=== PATIENT | male | born 1955 | race Caucasian/White ===

== ENCOUNTER 2021-06-13 17:08 | Inpatient (IN) ==
--- NOTE | 2021-06-13 17:35 | XRay Report ---
XR chest 1V portable CLINICAL HISTORY: elevated heart rate, fever. Evaluate cardiopulmonary status. COMPARISON STUDY: No previous studies for comparison. TECHNIQUE: 1 view of the chest FINDINGS: Single frontal view of the chest demonstrates the cardiomediastinal silhouette to be within normal li mits. The lungs are clear of alveolar opacities. There is no evidence for pleural effusion. There is no evidence for vascular congestion. There is no acute osseous pathology. IMPRESSION: 1. No acute cardiopulmonary disease. ACT 112: Negative or not required by law. Electronically signed by: Ernst Leonard M.D. 06/13/2021 5:34 PM
[2021-06-13] MEDS ORDERED: AMPICILLIN/SULBACTAM SOD 3,000 MG in 0.9 % SODIUM CHLORIDE 100 ML IV STA (17:53)
[2021-06-13] MEDS ORDERED: LABETALOL HCL IV 5 MG/ML 20ML IV STA (17:54)
[2021-06-13] MEDS ORDERED: DIPHTHERIA/TETANUS/PERTUSSIS 0.5 ML SYR/VIAL IM ONE (17:57)
--- NOTE | 2021-06-13 17:57 | Emergency Department Note ---
Impression & Plan Elevated troponin ADMIT ED Provider Note HPI: The patient is a 66-year-old gentleman who presents the emergency department with a chief complaint of a cat bite to the base of his left thumb. Patient states that he is a 5-month-old cat that was a stray that he took and about 2 months ago. He states that he was attempting to give the cat a nasal spray for a "cold" when the cat bit the base of his left thumb. Patient states he developed some pain and swelling in the area throughout the afternoon and therefore drove himself to the emergency department for evaluation. Patient states he did immediately wash the wound with soap and water following the bite. On arrival to the ED the patient is in no acute distress but he is noted to be tachycardic and hypertensive at 214 systolic. He denies any current chest pain. States he has had some chest discomfort over the past month or 2 when he exerts himself, mentions particularly when shoveling snow. ROS: -Skin: Cat bite to the left upper extremity/hand -Cardio: Chest discomfort with exertion *10 point review systems was conducted and is otherwise negative unless stated above *Outpatient medications and allergy history reviewed PE: General: Alert, NAD HEENT: Normocephalic, atraumatic Eyes: Extraocular eye movement is intact, no scleral erythema Pulmonary: Clear to auscultation bilaterally, no wheezing Cardio: Tachycardic rate and regular rhythm GI: Abdomen is soft, nontender : No suprapubic tenderness MSK: No evidence of trauma or malformation of the extremities, no edema Skin: Small puncture wound to the base of the first digit of the left hand consistent with known cat bite, no evidence of foreign body, no purulent drainage, mild amount of surrounding erythema to the area with a mild amount of swelling, range of motion is intact in all 5 digits of the left hand Neuro: Alert, no focal deficits Psychiatric: Cooperative nurse monitoring: - An order was placed for continuous cardiac monitoring - Patient was noted to be in sinus rhythm with rate of 120 EKG: Rate: 114 Rhythm: Sinus tachycardia Intervals: Within normal limits ST changes: No ST elevation Time: 1737 Medical Decision Making: Patient presented to the emergency department today with multiple issues, his main presenting complaint was that he was bitten by his 5-month-old cat earlier this morning. He states he developed some increasing swelling and redness around the site of the cat bite in the left hand at the base of the thumb, overall this appears mildly infected, he has some surrounding erythema, no purulent drainage, no evidence of abscess, there is no extension of the arm. Blood cultures were drawn in the ED and the patient was given a dose of IV Unasyn. Unfortunately, on presentation the patient is very hypertensive at 214 systolic, he is saturating well on room air but he is noted to be tachycardic in the 120s, he denies any active chest pain but states that he has had some chest discomfort recently when exerting himself, mention specifically when shoveling snow he becomes very short of breath and does have some chest discomfort. He was given a dose of IV labetalol and his blood pressure did downtrend into the 170 systolic, heart rate eventually improved within normal limits. Given his initial presenting vital signs, lab work-up was initiated, troponin is noted to be elevated at 0.09, this is in the setting of normal renal function, I do not see any acute ischemic changes on the patient's EKG. Patient was given aspirin, CT angiography of the chest was performed that shows no evidence of pulmonary embolism. Patient states he is not currently on any medications other than an albuterol inhaler, I feel that he would benefit from admission and trending of troponin given his concerning presentation in addition to symptoms of typical chest pain recently. Case was discussed with the on-call hospital for [facility], patient was admitted to a telemetry bed for further care. Critical care time: 33 minutes -Stabilization of hypertensive emergency with elevated troponin requiring IV antihypertensive medications for blood pressures greater than 200 systolic, interpretation of diagnostic studies, time spent at the bedside, discussion with other healthcare providers and arrangement of admission Diagnosis: 1. Elevated troponin 2. Exertional chest discomfort 3. Cat bite with surrounding cellulitis, left hand 4. Hypertensive emergency 5. Tachycardia Disposition: Admission Gopal Paul DO Emergency Medicine Past Med/Surg History Medical History (Updated 06/13/21 @ 21:06 by Mónica Daly PA-C) Alcohol use Asthma Dyslipidemia GERD (gastroesophageal reflux disease) HTN (hypertension) Pre-diabetes Surgical History History of tonsillectomy Family History Other Cancer Heart disease Stroke Social History Smoking Status: Current some day smoker Tobacco Type: Cigars Hx Alcohol Use: Yes Alcohol type: hard liquor Alcohol type Comment: 1.5 oz whisky every night Hx Substance Use: No Feels Safe at Home: Yes Allergies Allergies Allergy/AdvReac Type Severity Reaction Status Date / Time Penicillins Allergy Unknown strong Unverified 09/26/15 14:30 family hx of allergy citalopram AdvReac Tachycardia Unverified 06/13/21 20:15 Home Meds Home Medications Medication Instructions Recorded Confirmed albuterol sulfate 90 mcg/actuation 2 puff INHALATION QID PRN 06/13/21 06/13/21 aerosol inhaler (Ventolin HFA) furosemide 20 mg tablet 20 mg PO DAILY PRN 06/13/21 06/13/21 Results & Data (ED) Vital Signs Vital Signs - 24 hr 06/13/21 17:12 06/13/21 17:56 06/13/21 18:41 Temperature 37.4 C Temperature Source Oral Pulse Rate 120 H Pulse Rate [Finger] 118 H 99 H Pulse Rhythm [Finger] Regular Regular Pulse Strength [Finger] Normal Normal Respiratory Rate 20 22 22 Respiratory Effort / Characteristics Non-Labored Spontaneous Non-Labored Non-Labored Respiratory Depth Normal Normal Normal Respiratory Pattern Regular Regular Blood Pressure 197/93 H Blood Pressure [Right Arm] 214/93 H 179/88 H Blood Pressure Mean 127 Blood Pressure Mean [Right Arm] 133 118 Blood Pressure Position [Right Arm] Sitting Sitting Pulse Oximetry 96 95 Oxygen Delivery Method Room Air Room Air Room Air Sepsis Recent Fever Within 48 Hours Yes Sepsis New/Unexplained Change in Mental Status No Sepsis Action Taken by Nursing No Action Required 06/13/21 20:00 Temperature Temperature Source Pulse Rate Pulse Rate [Finger] 98 H Pulse Rhythm [Finger] Pulse Strength [Finger] Respiratory Rate 18 Respiratory Effort / Characteristics Non-Labored Spontaneous Respiratory Depth Normal Respiratory Pattern Blood Pressure Blood Pressure [Right Arm] 153/76 H Blood Pressure Mean Blood Pressure Mean [Right Arm] 101 Blood Pressure Position [Right Arm] Pulse Oximetry 96 Oxygen Delivery Method Room Air Sepsis Recent Fever Within 48 Hours Sepsis New/Unexplained Change in Mental Status Sepsis Action Taken by Nursing Laboratory Data Result diagrams: 06/13/21 17:52 06/13/21 17:52 Lab Results 06/13/21 06/13/21 06/13/21 Range/Units 17:52 17:52 17:52 WBC 11.53 H (4.8-10.8) K/uL RBC 4.59 L (4.7-6.1) M/uL Hgb 14.4 (14.0-18.0) g/dL Hct 42.0 (42-52) % MCV 91.5 (80-100) fL MCH 31.4 (25-34) pg MCHC 34.3 (32-36) g/dL RDW Std Deviation 43.3 (36.4-46.3) fL RDW Coeff of Jennie 12.9 (11.5-14.5) % Plt Count 205 (130-400) K/uL MPV 9.6 (7.4-10.4) fL Immature Gran % (Auto) 0.2 % Neut % (Auto) 78.4 % Lymph % (Auto) 15.0 % Lamb % (Auto) 5.6 % Eos % (Auto) 0.5 % Baso % (Auto) 0.3 % Neut # (Auto) 9.03 H (1.4-6.5) K/uL Lymph # (Auto) 1.73 (1.2-3.4) K/uL Lamb # (Auto) 0.65 H (0.11-0.59) K/uL Eos # (Auto) 0.06 (0-0.5) K/uL Baso # (Auto) 0.04 (0-0.2) K/uL Immature Gran # (Auto) 0.02 (0.00-0.02) K/uL PT 10.3 (9.0-12.0) Seconds INR 1.0 (0.9-1.1) APTT 30.3 (21.0-31.0) Seconds PTT Ratio 1.2 Sodium 136 (136-145) mmol/L Potassium 3.8 (3.5-5.1) mmol/L Chloride 105 (98-107) mmol/L Carbon Dioxide 23 (21-32) mmol/L Anion Gap 8 (3-11) BUN 10 (6-23) mg/dl Creatinine 1.02 (0.6-1.4) mg/dl Est Cr Clr Drug Dosing 88.2 ml/min Est GFR ( Amer) 88.4 ml/min Est GFR (Non-Af Amer) 76.2 ml/min BUN/Creatinine Ratio 9.8 L (10-20) Glucose 117 H (70-99(Fasting)) mg/dl Calcium 9.3 (8.5-10.1) mg/dl Total Bilirubin 0.9 (0.2-1.0) mg/dl AST 23 (13-39) U/L ALT 31 (7-52) U/L Alkaline Phosphatase 30 L (34-104) U/L Troponin I 0.09 H* (0-0.04) ng/ml Total Protein 8.1 (6.0-8.3) gm/dl Albumin 4.3 (3.4-5.0) gm/dl Globulin 3.8 (2.5-4.0) gm/dl Albumin/Globulin Ratio 1.1 (0.9-2) Urine Color Urine Appearance (Clear) Urine pH (4.5-7.5) Ur Specific [place] (1.000-1.030) Urine Protein (Negative) Urine Glucose (UA) (Negative) Urine Ketones (Negative) Urine Blood (Negative) Urine Nitrite (Negative) Urine Bilirubin (Negative) Urine Urobilinogen (Negative) Ur Leukocyte Esterase (Negative) SARS-CoV-2, RNA, NAAT (NEGATIVE) 06/13/21 06/13/21 Range/Units 19:43 19:43 WBC (4.8-10.8) K/uL RBC (4.7-6.1) M/uL Hgb (14.0-18.0) g/dL Hct (42-52) % MCV (80-100) fL MCH (25-34) pg MCHC (32-36) g/dL RDW Std Deviation (36.4-46.3) fL RDW Coeff of Jennie (11.5-14.5) % Plt Count (130-400) K/uL MPV (7.4-10.4) fL Immature Gran % (Auto) % Neut % (Auto) % Lymph % (Auto) % Lamb % (Auto) % Eos % (Auto) % Baso % (Auto) % Neut # (Auto) (1.4-6.5) K/uL Lymph # (Auto) (1.2-3.4) K/uL Lamb # (Auto) (0.11-0.59) K/uL Eos # (Auto) (0-0.5) K/uL Baso # (Auto) (0-0.2) K/uL Immature Gran # (Auto) (0.00-0.02) K/uL PT (9.0-12.0) Seconds INR (0.9-1.1) APTT (21.0-31.0) Seconds PTT Ratio Sodium (136-145) mmol/L Potassium (3.5-5.1) mmol/L Chloride (98-107) mmol/L Carbon Dioxide (21-32) mmol/L Anion Gap (3-11) BUN (6-23) mg/dl Creatinine (0.6-1.4) mg/dl Est Cr Clr Drug Dosing ml/min Est GFR ( Amer) ml/min Est GFR (Non-Af Amer) ml/min BUN/Creatinine Ratio (10-20) Glucose (70-99(Fasting)) mg/dl Calcium (8.5-10.1) mg/dl Total Bilirubin (0.2-1.0) mg/dl AST (13-39) U/L ALT (7-52) U/L Alkaline Phosphatase (34-104) U/L Troponin I (0-0.04) ng/ml Total Protein (6.0-8.3) gm/dl Albumin (3.4-5.0) gm/dl Globulin (2.5-4.0) gm/dl Albumin/Globulin Ratio (0.9-2) Urine Color Yellow Urine Appearance Clear (Clear) Urine pH 7.0 (4.5-7.5) Ur Specific [place] 1.021 (1.000-1.030) Urine Protein Negative (Negative) Urine Glucose (UA) Negative (Negative) Urine Ketones Negative (Negative) Urine Blood Negative (Negative) Urine Nitrite Negative (Negative) Urine Bilirubin Negative (Negative) Urine Urobilinogen Negative (Negative) Ur Leukocyte Esterase Negative (Negative) SARS-CoV-2, RNA, NAAT NEGATIVE (NEGATIVE) Administered Medications Discontinued Medications Aspirin (Aspirin Chew 324 Mg) 324 mg PO NOW STA Stop: 06/13/21 19:18 Last Admin: 06/13/21 19:41 Dose: 324 mg Documented by: [id number] Diphtheria/Pertussis/Tetanus Vacc (Diphtheria/Tetanus/Pertussis 0.5 Ml Syr/Vial) 0.5 ml IM .ONCE ONE Stop: 06/13/21 17:58 Last Admin: 06/13/21 18:19 Dose: Not Given Documented by: [id number] Ampicillin Sodium/Sulbactam Sodium 3,000 mg/ Sodium Chloride 108 mls @ 200 mls/hr IV NOW STA; Protocol Stop: 06/13/21 18:25 Last Infusion: 06/13/21 18:52 Dose: 200 mls/hr Documented by: [id number] Admin: 06/13/21 18:19 Dose: 200 mls/hr Documented by: [id number] Ioversol (Optiray 320 125ml) 120 ml IV ONCE ONE Stop: 06/13/21 19:11 Last Admin: 06/13/21 19:13 Dose: 120 ml Documented by: [id number] Labetalol HCl (Labetalol Hcl Iv 5 Mg/Ml 20ml) 10 mg IV NOW STA Stop: 06/13/21 17:55 Last Admin: 06/13/21 18:14 Dose: 10 mg Documented by: [id number] Cosigned by: [id number] Imaging Data Radiologist's Impression: Chest X-Ray 06/13/21 17:16 XR chest 1V portable CLINICAL HISTORY: elevated heart rate, fever. Evaluate cardiopulmonary status. COMPARISON STUDY: No previous studies for comparison. TECHNIQUE: 1 view of the chest FINDINGS: Single frontal view of the chest demonstrates the cardiomediastinal silhouette to be within normal limits. The lungs are clear of alveolar opacities. There is no evidence for pleural effusion. There is no evidence for vascular congestion. There is no acute osseous pathology. IMPRESSION: 1. No acute cardiopulmonary disease. ACT 112: Negative or not required by law. Electronically signed by: Ernst Leonard M.D. 06/13/2021 5:34 PM Hand X-Ray 06/13/21 17:54 XR hand LT min 3V routine CLINICAL HISTORY: cat bite base of L thumb. COMPARISON STUDY: No previous studies for comparison. TECHNIQUE: 3 left hand views FINDINGS: Bones: There is no evidence for an acute fracture or dislocation. There is no lytic or blastic lesion. Joints: There is mild narrowing of the IP joints and first MTP joint. The bones are in anatomic alignment. Soft tissues: There is no focal soft tissue abnormality. There is no radiopaque foreign body. IMPRESSION: 1. No acute osseous pathology. Osteoarthritis. No radiopaque foreign body. ACT 112: Negative or not required by law. Electronically signed by: Ernst Leonard M.D. 06/13/2021 6:13 PM Chest CTA 06/13/21 18:40 CT angio chest PE protocol CLINICAL HISTORY: Elevated heart rate and fever. Evaluate for pulmonary embolus COMPARISON STUDY: Portable chest from 06/13/2021 CT DOSE: 672.95 mGy.cm TECHNIQUE: CT Angio of the chest was performed.followed by image post processing with coronal, and sagittal MIP reformats. Contrast Volume: Optiray 320, 120 ml FINDINGS: Vasculature: There is homogeneous perfusion of the pulmonary vasculature bilaterally. No intraluminal filling defects or evidence for pulmonary embolus is seen. Airway: The airway is clear. No endobronchial lesion is identified. Lungs: The lungs are clear of acute alveolar opacities, air bronchograms or pulmonary nodules. Pleura: There is no evidence for pleural effusion. There is no evidence for pneumothorax. Mediastinum: There is no evidence for pathologic adenopathy. The heart size is within normal limits. The thoracic aorta is within normal limits. There is no evidence for pericardial effusion. Upper abdomen:The adrenal glands are normal bilaterally. There is a small hiatal hernia. Osseous structures: There is no acute osseous pathology. Impression: 1. No CTA evidence for pulmonary embolus. 2. No acute chest disease. ACT 112: Negative or not required by law. Electronically signed by: Ernst Leonard M.D. 06/13/2021 7:44 PM Discharge Plan Visit Data Chief Complaint: Illness Stated Complaint: RABIES VACCINATION ED Provider: Gopal Paul Discharge Problem: Elevated troponin Patient Disposition: Admitted As Inpatient Discharge Instructions Interventions: ED Discharge Assessment Last Done: 06/13/21 22:42
[2021-06-13 18:07] LABS: Basophils # (auto) 0.04 K/uL (0-0.2); Basophils % (auto) 0.3 %; Eosinophils # (auto) 0.06 K/uL (0-0.5); Eosinophils % (auto) 0.5 %; Hemoglobin 14.4 g/dL (14.0-18.0); Immature Granulocytes # (auto) 0.02 K/uL (0.00-0.02); Immature Granulocytes % (auto) 0.2 %; Lymphocytes # (auto) 1.73 K/uL (1.2-3.4); Mean Corpuscular Hemoglobin 31.4 pg (25-34); Mean Corpuscular Hgb Conc 34.3 g/dL (32-36); Mean Corpuscular Volume 91.5 fL (80-100); Mean Platelet Volume 9.6 fL (7.4-10.4); Monocytes # (auto) 0.65 K/uL (0.11-0.59); Monocytes % (auto) 5.6 %; Neutrophils # (auto) 9.03 K/uL (1.4-6.5); Neutrophils % (auto) 78.4 %; Platelet Count 205 K/uL (130-400); RDW Coefficient of Variation 12.9 % (11.5-14.5); RDW Standard Deviation 43.3 fL (36.4-46.3); Red Blood Count 4.59 M/uL (4.7-6.1); White Blood Count 11.53 K/uL (4.8-10.8)
--- NOTE | 2021-06-13 18:14 | XRay Report ---
XR hand LT min 3V routine CLINICAL HISTORY: cat bite base of L thumb. COMPARISON STUDY: No previous studies for comparison. TECHNIQUE: 3 left hand views FINDINGS: Bones: There is no evidence for an acute fracture or dislocation. There is no lytic or blastic lesion . Joints: There is mild narrowing of the IP joints and first MTP joint. The bones are in anatomic align ment. Soft tissues: There is no focal soft tissue abnormality. There is no radiopaque foreign body. IMPRESSION: 1. No acute osseous pathology. Osteoarthritis. No radiopaque foreign body. ACT 112: Negative or not required by law. Electronically signed by: Ernst Leonard M.D. 06/13/2021 6:13 PM
[2021-06-13 18:24] LABS: Partial Thromboplastin Ratio 1.2; Partial Thromboplastin Time 30.3 Seconds (21.0-31.0); Prothrombin Time 10.3 Seconds (9.0-12.0)
[2021-06-13 18:30] LABS: Albumin Globulin Ratio 1.1 (0.9-2); Albumin Level 4.3 gm/dl (3.4-5.0); BUN Creatinine Ratio 9.8 (10-20); Bilirubin,Total 0.9 mg/dl (0.2-1.0); Calcium 9.3 mg/dl (8.5-10.1); Creatinine Clr Calc Pharmacy 88.2 ml/min; Est GFR (African American) 88.4 ml/min; Est GFR (Non-African American) 76.2 ml/min; Globulin 3.8 gm/dl (2.5-4.0); Potassium 3.8 mmol/L (3.5-5.1); Total Protein 8.1 gm/dl (6.0-8.3)
[2021-06-13 18:35] LABS: Troponin I 0.09 ng/ml (0-0.04)
[2021-06-13] MEDS ORDERED: OPTIRAY 320 125ml IV ONE (19:10)
[2021-06-13] MEDS ORDERED: ASPIRIN CHEW 324 MG PO STA (19:17)
--- NOTE | 2021-06-13 19:45 | CT Scan Report ---
CT angio chest PE protocol CLINICAL HISTORY: Elevated heart rate and fever. Evaluate for pulmonary embolus COMPARISON STUDY: Portable chest from 06/13/2021 CT DOSE: 672.95 mGy.cm TECHNIQUE: CT Angio of the chest was performed.followed by image post processing with coronal, and s agittal MIP reformats. Contrast Volume: Optiray 320, 120 ml FINDINGS: Vasculature: There is homogeneous perfusion of the pulmonary vasculature bilaterally. No intraluminal filling defects or evidence for pulmonary embolus is seen. Airway: The airway is clear. No endobronchial lesion is identified. Lungs: The lungs are clear of acute alveolar opacities, air bronchograms or pulmonary nodules. Pleura: There is no evidence for pleural effusion. There is no evidence for pneumothorax. Mediastinum: There is no evidence for pathologic adenopathy. The heart size is within normal limits. The thoracic aorta is within normal limits. There is no evidence for pericardial effusion. Upper abdomen:The adrenal glands are normal bilaterally. There is a small hiatal hernia. Osseous structures: There is no acute osseous pathology. Impression: 1. No CTA evidence for pulmonary embolus. 2. No acute chest disease. ACT 112: Negative or not required by law. Electronically signed by: Ernst Leonard M.D. 06/13/2021 7:44 PM
[2021-06-13 20:00] LABS: Appearance Urine Clear (Clear); Bilirubin Urine Negative (Negative); Blood Urine Negative (Negative); Color Urine Yellow; Glucose Urine UA Negative (Negative); Ketones Urine Negative (Negative); Leukocyte Esterase Urine Negative (Negative); Nitrite Urine Negative (Negative); Protein Urine Negative (Negative); Specific Gravity Urine 1.021 (1.000-1.030); Urobilinogen Urine Negative (Negative)
--- NOTE | 2021-06-13 20:30 | History & Physical Report ---
Date of Service June 13, 2021 Assessment & Plan (1) Elevated troponin: Plan: This is a 66yo M with a PMH of pre-diabetes, dyslipidemia, BPH, asthma and other medical problems listed below who presents with cat bite and was found to have elevated BP and troponin. Initial troponin 0.09 in setting of elevated BP of 214/93 BP improved to 153/76 with Labetalol in ED No chest pain, CXR without acute changes, EKG with sinus tachycardia @ 114 bpm, chest CTA without evidence of PE Underlying HTN, dyslipidemia, pre-diabetes Trend troponin, monitor on tele overnight, fasting lipid panel, a1c, 2D echo, repeat ECG in AM, NPO @ [place] Consider cardiology consult if trop increases or patient develops CP (2) HTN (hypertension): Plan: BP significantly elevated initially at 214/93 in setting of pain, anxiety -> improved to 153/76 Does not take anti-hypertensives at home PRN IV Labetalol Monitor closely (3) Cat bite of hand: Plan: Bite from unvaccinated 5 mo old kitten earlier today, directed to ED from urgent care Continue Unasyn, follow wound culture Wound care nurse consulted (4) Alcohol use: Plan: Endorses daily whisky consumption, ~ 1.5oz. No issues with withdrawal in the past. Last drink last evening. Thiamine and folic acid ordered. Add PRN ativan if s/sx of withdrawal (5) Asthma: Plan: Stable. Albuterol inhaler PRN (6) Pre-diabetes: Plan: A1c of 6.3 in 11/16 Carb consistent diet Repeat a1c in AM DVT Ppx: SQ heparin Code status: FULL PCP: Geeta Dispo: Observation med tele Patient seen in collaboration with Dr. Huggins. Please see addendum. History of Present Illness Chief Complaint: [place] Bite Primary Care Provider: NO PCP This is a 66yo M with a PMH of pre-diabetes, dyslipidemia, BPH, asthma and other medical problems listed below who presents with cat bite. Bite was from 5 month old kitten at the base of his left thumb. [facility] at [facility] and prescribed Augmentin and was directed to come for rabies vaccine. [place] lightheaded and nauseous on way to ER. Had pain originating in left thumb that extended up to left arm and shoulder. Also endorses difficulty catching his breath earlier today that resolved with rest. Endorses mild headache. Denies any fever, palpitations, vomiting, dysuria, diarrhea or constipation. Does experience exertional chest discomfort occasionally, most recently when shoveling snow. Has been diagnosed with HTN and dyslipidemia previously but is not taking any medications. Occasionally smokes cigars. Drinks 1.5oz whisky every night. Denies issues with withdrawal in the past. Also recently seen by derm for stasis dermatitis wounds of BLE. Allergies Allergy/AdvReac Type Severity Reaction Status Date / Time Penicillins Allergy Unknown strong Unverified 09/26/15 14:30 family hx of allergy citalopram AdvReac Tachycardia Unverified 06/13/21 20:15 Home Medications Medication Instructions Recorded Confirmed Type albuterol sulfate 90 mcg/actuation 2 puff INHALATION QID PRN 06/13/21 06/13/21 History aerosol inhaler (Ventolin HFA) furosemide 20 mg tablet 20 mg PO DAILY PRN 06/13/21 06/13/21 History Past Med/Surg History Medical History (Updated 06/13/21 @ 21:06 by Mónica Daly PA-C) Alcohol use Asthma Dyslipidemia GERD (gastroesophageal reflux disease) HTN (hypertension) Pre-diabetes Surgical History (Updated 06/14/21 @ 00:20 by Mirela Zimmerman RN) History of tonsillectomy TONSILS REMOVED WHEN HE WAS 10 YRS OLD. Family History Other Cancer Heart disease Stroke Social History Smoking Status: Current some day smoker Tobacco Type: Cigars Second Hand Exposure: Yes; Do You Dip or Chew Tobacco: Yes; Tobacco Cessation Education Requested by Patient: Yes Hx Alcohol Use: Yes Alcohol type: beer and hard liquor Alcohol type Comment: 1.5 oz whisky every night Hx Substance Use: No Communication Ability: Effective Tax Revenue Officer Required: No Beliefs That Will Affect Care: None Current Living Situation: Significant Other Feels Safe at Home: Yes Safety Concerns: Feels Safe At This Time Assistive Devices: None Review of Systems Review of Systems: At least ten systems reviewed and negative except as noted in the HPI. Physical Exam Physical Exam: Please see Dr. Huggins's addendum for physical exam. Results & Data Results & Data ([facility]) Vital Signs (Past 12 Hours) Vital Signs Temp Pulse Pulse Resp BP BP Pulse Ox 06/13/21 20:00 98 H 18 153/76 H 96 06/13/21 18:41 99 H 22 179/88 H 06/13/21 17:56 118 H 22 214/93 H 95 06/13/21 17:12 37.4 C 120 H 20 197/93 H 96 Laboratory Results Short CBC 06/13/21 Range/Units 17:52 WBC 11.53 H (4.8-10.8) K/uL Hgb 14.4 (14.0-18.0) g/dL Hct 42.0 (42-52) % Plt Count 205 (130-400) K/uL BMP 06/13/21 17:52 Sodium 136 Potassium 3.8 Chloride 105 Carbon Dioxide 23 BUN 10 Creatinine 1.02 Glucose 117 H Calcium 9.3 Cardiac Enzymes 06/13/21 Range/Units 17:52 Troponin I 0.09 H* (0-0.04) ng/ml Liver Function 06/13/21 Range/Units 17:52 Total Bilirubin 0.9 (0.2-1.0) mg/dl AST 23 (13-39) U/L ALT 31 (7-52) U/L Alkaline Phosphatase 30 L (34-104) U/L Albumin 4.3 (3.4-5.0) gm/dl Urine 06/13/21 Range/Units 19:43 Urine Color Yellow Urine Appearance Clear (Clear) Urine pH 7.0 (4.5-7.5) Ur Specific [place] 1.021 (1.000-1.030) Urine Protein Negative (Negative) Urine Glucose (UA) Negative (Negative) Diagnostic Findings Chest X-Ray 06/13/21 17:16 XR chest 1V portable CLINICAL HISTORY: elevated heart rate, fever. Evaluate cardiopulmonary status. COMPARISON STUDY: No previous studies for comparison. TECHNIQUE: 1 view of the chest FINDINGS: Single frontal view of the chest demonstrates the cardiomediastinal silhouette to be within normal limits. The lungs are clear of alveolar opacities. There is no evidence for pleural effusion. There is no evidence for vascular congestion. There is no acute osseous pathology. IMPRESSION: 1. No acute cardiopulmonary disease. ACT 112: Negative or not required by law. Electronically signed by: Ernst Leonard M.D. 06/13/2021 5:34 PM Hand X-Ray 06/13/21 17:54 XR hand LT min 3V routine CLINICAL HISTORY: cat bite base of L thumb. COMPARISON STUDY: No previous studies for comparison. TECHNIQUE: 3 left hand views FINDINGS: Bones: There is no evidence for an acute fracture or dislocation. There is no lytic or blastic lesion. Joints: There is mild narrowing of the IP joints and first MTP joint. The bones are in anatomic alignment. Soft tissues: There is no focal soft tissue abnormality. There is no radiopaque foreign body. IMPRESSION: 1. No acute osseous pathology. Osteoarthritis. No radiopaque foreign body. ACT 112: Negative or not required by law. Electronically signed by: Ernst Leonard M.D. 06/13/2021 6:13 PM Chest CTA 06/13/21 18:40 CT angio chest PE protocol CLINICAL HISTORY: Elevated heart rate and fever. Evaluate for pulmonary embolus COMPARISON STUDY: Portable chest from 06/13/2021 CT DOSE: 672.95 mGy.cm TECHNIQUE: CT Angio of the chest was performed.followed by image post processing with coronal, and sagittal MIP reformats. Contrast Volume: Optiray 320, 120 ml FINDINGS: Vasculature: There is homogeneous perfusion of the pulmonary vasculature bilaterally. No intraluminal filling defects or evidence for pulmonary embolus is seen. Airway: The airway is clear. No endobronchial lesion is identified. Lungs: The lungs are clear of acute alveolar opacities, air bronchograms or pulmonary nodules. Pleura: There is no evidence for pleural effusion. There is no evidence for pneumothorax. Mediastinum: There is no evidence for pathologic adenopathy. The heart size is within normal limits. The thoracic aorta is within normal limits. There is no evidence for pericardial effusion. Upper abdomen:The adrenal glands are normal bilaterally. There is a small hiatal hernia. Osseous structures: There is no acute osseous pathology. Impression: 1. No CTA evidence for pulmonary embolus. 2. No acute chest disease. ACT 112: Negative or not required by law. Electronically signed by: Ernst Leonard M.D. 06/13/2021 7:44 PM ECG Additional Comments: sinus tachycardia at 114 bpm Supervising Physician Co-Signing Physician Notes Patient is a 66-year-old male with history of COPD, GERD, prediabetes, BPH, hypertension but currently not on any medications presents with history of a cat bite. Patient complains of left thumb swelling, erythema, pain. He reports associated dizziness, nausea but denies any fever, chills, chest pain, shortness of breath. Was found to be in hypertensive urgency while in ED. Patient admits to drinking whiskey every night. Blood work suggestive of leukocytosis 11 point 5K, troponin elevated 0.09. CTA chest showed no acute findings. EKG showed no signs of acute ischemia. Physical Exam: Vitals signs as noted above General Appearance:Moderately built and nourished, no apparent distress Head: normocephalic, Atraumatic Eyes: normal inspection, EOMI Neck: supple, Trachea midline Respiratory/Chest: Normal breath sounds, CTA, No accessory muscle use Cardiovascular: S1, S2, No murmur Abdomen/GI:Soft, Non tender, Bowel sounds present Extremities/Musculoskeletal:normal inspection, Left thumb bite wound, erythema, tender, B/L LE abrasions--chronic as per patient Neurologic/Psych:AAOX3, grossly no focal neurological deficits Skin: normal color, warm Cat bite Agree with Unasyn Pain control Wound care Received Tdap in ED Hypertensive urgency Likely situational H/O hypertension but currently not on any medication Monitor blood pressure and consider antihypertensives if persistently elevated Elevated troponin Likely secondary to hypertensive urgency Trend cardiac enzymes Check resting echo Consider cardiology evaluation if needed I personally reviewed the record. Patient is interviewed and examined at bedside. Patient's care is coordinated with Mónica Daly PA-C. Please refer to the documentation above for details of patient's presentation and for discussion of other issues.
[2021-06-13] MEDS ORDERED: CONSULT PHARMACY STA (20:34)
[2021-06-13] MEDS ORDERED: ACETAMINOPHEN 325 MG TAB PO PRN (22:22)
[2021-06-13] MEDS ORDERED: oxyCODONE/ACETAMINOPHEN 5mg/325mg TAB PO PRN (22:22)
[2021-06-13] MEDS ORDERED: ONDANSETRON INJ 2 MG/ML 2 ML VIAL IV PRN (22:22)
[2021-06-13] MEDS ORDERED: NITROGLYCERIN SL 0.4 MG/TAB TAB SL PRN (22:22)
[2021-06-13] MEDS ORDERED: ALBUTEROL HFA 8 GM INHALER INH PRN (22:22)
[2021-06-13] MEDS ORDERED: LABETALOL HCL IV 5 MG/ML 20ML IV PRN (22:22)
[2021-06-14] MEDS: HEPARIN SOD 5,000 UNIT/0.5 ML VIAL SQ SCH ×4 (00:44→22:21)
[2021-06-14 07:11] LABS: Hematocrit (blood only) 39.4 % (42-52); Hemoglobin 13.1 g/dL (14.0-18.0); Mean Corpuscular Hemoglobin 31.1 pg (25-34); Mean Corpuscular Hgb Conc 33.2 g/dL (32-36); Mean Corpuscular Volume 93.6 fL (80-100); Mean Platelet Volume 9.6 fL (7.4-10.4); Platelet Count 190 K/uL (130-400); RDW Coefficient of Variation 13.3 % (11.5-14.5); RDW Standard Deviation 45.6 fL (36.4-46.3); Red Blood Count 4.21 M/uL (4.7-6.1); White Blood Count 7.24 K/uL (4.8-10.8)
[2021-06-14 07:33] LABS: Estimated Average Glucose 131 mg/dl; Hemoglobin A1C 6.2 % (4.5-5.6)
[2021-06-14 07:36] LABS: BUN Creatinine Ratio 10.2 (10-20); Calcium 8.7 mg/dl (8.5-10.1); Chol HDL Ratio 4.9 (0-5); Creatinine Clr Calc Pharmacy 80.4 ml/min; Est GFR (African American) 82.5 ml/min; Est GFR (Non-African American) 71.1 ml/min; Potassium 3.8 mmol/L (3.5-5.1)
[2021-06-14 07:37] LABS: Troponin I 0.07 ng/ml (0-0.04)
[2021-06-14] MEDS: THIAMINE HCL 100 MG TAB PO SCH (08:53)
[2021-06-14] MEDS: FOLIC ACID 1 MG TAB PO SCH (08:53)
[2021-06-14] MEDS: AMPICILLIN/SULBACTAM SOD 3,000 MG in 0.9 % SODIUM CHLORIDE 100 ML IV SCH ×3 (11:53→22:21)
--- NOTE | 2021-06-14 13:55 | Hospitalist Progress Note ---
Date of Service June 14, 2021 Assessment & Plan (1) Elevated troponin: Plan: This is a 66yo M with a PMH of pre-diabetes, dyslipidemia, BPH, asthma and other medical problems listed below who presents with cat bite and was found to have elevated BP and troponin. Initial troponin 0.09 in setting of elevated BP of 214/93 BP improved to 153/76 with Labetalol in ED No chest pain, CXR without acute changes, EKG with sinus tachycardia @ 114 bpm, chest CTA without evidence of PE Underlying HTN, dyslipidemia, pre-diabetes Serial troponins have been trending down and the EKG did not show any change Troponin elevation was due to strain secondary to high blood pressure No evidence of ACS and he remains free from any symptoms (2) HTN (hypertension): Plan: Hypertensive urgency BP significantly elevated initially at 214/93 in setting of pain, anxiety -> improved to 153/76 Does not take anti-hypertensives at home PRN IV Labetalol Blood pressure has been stabilized (3) Cat bite of hand: Plan: Bite from unvaccinated 5 mo old kitten earlier today, directed to ED from urgent care Continue Unasyn, follow wound culture Wound care nurse consulted Left thumb wound seems to have worsened with adjoining swelling, redness and tenderness We will continue intravenous Unasyn Advised to elevate the left upper extremity and try to keep it above the level of the heart Likely be discharged tomorrow on oral Augmentin (4) Alcohol use: Plan: Endorses daily whisky consumption, ~ 1.5oz. No issues with withdrawal in the past. Last drink last evening. Thiamine and folic acid ordered. Add PRN ativan if s/sx of withdrawal (5) Asthma: Plan: Stable. Albuterol inhaler PRN (6) Pre-diabetes: Plan: A1c of 6.3 in 11/16 Carb consistent diet Repeat a1c in AM DVT Ppx: SQ heparin Code status: FULL PCP: Geeta Dispo: Observation med tele Admission and Anticipated Discharge Date Admission Date: June 13, 2021 Subjective 06/14/2021 The patient was seen and examined in medical telemetry unit He has been complaining of left thumb swelling with throbbing pain and increasing redness No chest pain and/or shortness of breath Denies any fever and or chills Review of Systems Review of Systems: All systems reviewed and are unremarkable except as noted below Musculoskeletal: Swelling of the left thumb and adjoining area of the left hand with redness and tenderness Physical Exam Physical Exam: Sitting at the edge of the bed without any acute distress Constitutional: well developed, well nourished and + obese Eyes: PERRL, conjunctivae normal, anicteric sclerae ENMT: external ear and nose normal, oropharynx normal Neck: trachea midline, no thyromegaly Respiratory: no respiratory distress Auscultation: lungs clear to auscultation bilaterally Cardiovascular: Rate/Rhythm: regular rate and regular rhythm; not tachycardic Heart Sounds: normal S1 and normal S2; no murmur Extremities: + edema (Trace edema bilaterally) Gastrointestinal (Abdomen): Inspection/Auscultation: normal bowel sounds; abdomen not distended Percussion/Palpation: abdomen soft; abdomen nontender Musculoskeletal: Left thumb and adjoining area is swelled with redness and increasing tenderness Neurologic: Alert, awake and oriented x3 Results & Data Results & Data ([facility]) Vital Signs (Past 12 Hours) Vital Signs Temp Pulse Pulse Pulse Resp BP Pulse Ox 06/14/21 11:08 37.4 C 68 14 137/54 L 94 06/14/21 07:39 37.1 C 68 18 121/63 96 06/14/21 07:02 64 06/14/21 03:04 37.1 C 77 18 111/53 L 96 Laboratory Results Short CBC 06/13/21 06/14/21 Range/Units 17:52 06:41 WBC 11.53 H 7.24 (4.8-10.8) K/uL Hgb 14.4 13.1 L (14.0-18.0) g/dL Hct 42.0 39.4 L (42-52) % Plt Count 205 190 (130-400) K/uL BMP 06/13/21 06/14/21 17:52 06:41 Sodium 136 136 Potassium 3.8 3.8 Chloride 105 105 Carbon Dioxide 23 26 BUN 10 11 Creatinine 1.02 1.08 Glucose 117 H 114 H Calcium 9.3 8.7 Cardiac Enzymes 06/13/21 06/13/21 06/14/21 Range/Units 17:52 23:35 06:41 Troponin I 0.09 H* 0.08 H* 0.07 H* (0-0.04) ng/ml Liver Function 06/13/21 Range/Units 17:52 Total Bilirubin 0.9 (0.2-1.0) mg/dl AST 23 (13-39) U/L ALT 31 (7-52) U/L Alkaline Phosphatase 30 L (34-104) U/L Albumin 4.3 (3.4-5.0) gm/dl Urine 06/13/21 Range/Units 19:43 Urine Color Yellow Urine Appearance Clear (Clear) Urine pH 7.0 (4.5-7.5) Ur Specific [place] 1.021 (1.000-1.030) Urine Protein Negative (Negative) Urine Glucose (UA) Negative (Negative) Medications Administered Current Inpatient Medications Acetaminophen (Acetaminophen 325 Mg Tab) 650 mg PO Q4H PRN PRN Reason: Pain or Fever Stop: 07/13/21 22:21 Last Admin: 06/14/21 11:53 Dose: 650 mg Documented by: Albuterol (Albuterol Hfa 8 Gm Inhaler) 2 puffs INH QID PRN PRN Reason: Shortness Of Breath Or Wheezing Stop: 07/13/21 22:21 Folic Acid (Folic Acid 1 Mg Tab) 1 mg PO QAM [place] Stop: 07/14/21 08:59 Last Admin: 06/14/21 08:53 Dose: 1 mg Documented by: Heparin Sodium (Porcine) (Heparin Sod 5,000 Unit/0.5 Ml Vial) 5,000 units SQ Q8 [place] Stop: 07/13/21 22:21 Last Admin: 06/14/21 13:29 Dose: 5,000 units Documented by: Ampicillin Sodium/Sulbactam Sodium 3,000 mg/ Sodium Chloride 108 mls @ 200 mls/ hr IV Q6H [facility]; Protocol Stop: 06/21/21 10:44 Last Infusion: 06/14/21 12:34 Dose: Infused Documented by: Labetalol HCl (Labetalol Hcl Iv 5 Mg/Ml 20ml) 10 mg IV Q8H PRN PRN Reason: SBP >180 or DBP >100 Stop: 07/13/21 22:21 Nitroglycerin (Nitroglycerin Sl 0.4 Mg/Tab Tab) 0.4 mg SL UD PRN PRN Reason: Chest Pain Stop: 07/13/21 22:21 Ondansetron HCl (Ondansetron Inj 2 Mg/Ml 2 Ml Vial) 4 mg IV Q6H PRN PRN Reason: Nausea Stop: 07/13/21 22:21 Last Admin: 06/14/21 00:45 Dose: 4 mg Documented by: Oxycodone/Acetaminophen (Oxycodone/Acetaminophen 5mg/325mg Tab) 1 tab PO Q6H PRN PRN Reason: Pain Stop: 06/27/21 22:21 Polyethylene Glycol (Polyethylene (Miralax) 17 Gm Pack) 17 gm PO DAILY PRN PRN Reason: Constipation Stop: 07/13/21 22:21 Thiamine HCl (Thiamine Hcl 100 Mg Tab) 100 mg PO [facility] Stop: 07/14/21 08:59 Last Admin: 06/14/21 08:53 Dose: 100 mg Documented by:
--- NOTE | 2021-06-14 14:22 | Electrocardiogram Report ---
Test Reason : Blood Pressure : / mmHG Vent. Rate : 069 BPM Atrial Rate : 069 BPM P-R Int : 186 ms QRS Dur : 106 ms QT Int : 406 ms P-R-T Axes : 030 019 041 degrees QTc Int : 435 ms Normal sinus rhythm Normal ECG When compared with ECG of 14-JUN-2021 05:08, (unconfirmed) No significant change was found Confirmed by Jose Christianson ([id number]) on 06/14/2021 2:22:12 PM Referred By: REFERRED SELF Confirmed By:Jose Christianson
--- NOTE | 2021-06-14 14:22 | Electrocardiogram Report ---
Test Reason : Blood Pressure : / mmHG Vent. Rate : 070 BPM Atrial Rate : 070 BPM P-R Int : 184 ms QRS Dur : 106 ms QT Int : 420 ms P-R-T Axes : 054 018 039 degrees QTc Int : 453 ms Poor data quality, interpretation may be adversely affected Normal sinus rhythm Normal ECG When compared with ECG of 13-JUN-2021 17:37, (unconfirmed) Vent. rate has decreased BY 44 BPM Confirmed by Jose Christianson ([id number]) on 06/14/2021 2:22:07 PM Referred By: REFERRED SELF Confirmed By:Jose Christianson
[2021-06-14] MEDS: POLYETHYLENE (MIRALAX) 17 GM PACK PO PRN (18:28)
[2021-06-15] MEDS: AMPICILLIN/SULBACTAM SOD 3,000 MG in 0.9 % SODIUM CHLORIDE 100 ML IV SCH ×4 (05:51→21:29)
[2021-06-15] MEDS: HEPARIN SOD 5,000 UNIT/0.5 ML VIAL SQ SCH ×3 (05:52→21:31)
[2021-06-15 07:48] LABS: Basophils # (auto) 0.05 K/uL (0-0.2); Basophils % (auto) 0.8 %; Eosinophils # (auto) 0.12 K/uL (0-0.5); Hematocrit (blood only) 42.6 % (42-52); Hemoglobin 14.3 g/dL (14.0-18.0); Immature Granulocytes # (auto) 0.02 K/uL (0.00-0.02); Immature Granulocytes % (auto) 0.3 %; Lymphocytes # (auto) 2.04 K/uL (1.2-3.4); Lymphocytes % (auto) 33.9 %; Mean Corpuscular Hemoglobin 31.2 pg (25-34); Mean Corpuscular Hgb Conc 33.6 g/dL (32-36); Mean Platelet Volume 9.6 fL (7.4-10.4); Monocytes # (auto) 0.68 K/uL (0.11-0.59); Monocytes % (auto) 11.3 %; Neutrophils % (auto) 51.7 %; Platelet Count 196 K/uL (130-400); RDW Coefficient of Variation 12.9 % (11.5-14.5); RDW Standard Deviation 44.2 fL (36.4-46.3); Red Blood Count 4.58 M/uL (4.7-6.1); White Blood Count 6.01 K/uL (4.8-10.8)
[2021-06-15] MEDS: FOLIC ACID 1 MG TAB PO SCH (08:20)
[2021-06-15] MEDS: THIAMINE HCL 100 MG TAB PO SCH (08:20)
--- NOTE | 2021-06-15 14:17 | Hospitalist Progress Note ---
Date of Service June 15, 2021 Assessment & Plan (1) Elevated troponin: Plan: This is a 66yo M with a PMH of pre-diabetes, dyslipidemia, BPH, asthma and other medical problems listed below who presents with cat bite and was found to have elevated BP and troponin. Initial troponin 0.09 in setting of elevated BP of 214/93 BP improved to 153/76 with Labetalol in ED No chest pain, CXR without acute changes, EKG with sinus tachycardia @ 114 bpm, chest CTA without evidence of PE Underlying HTN, dyslipidemia, pre-diabetes Serial troponins have been trending down and the EKG did not show any change Troponin elevation was due to strain secondary to high blood pressure No evidence of ACS and he remains free from any symptoms (2) HTN (hypertension): Plan: Hypertensive urgency BP significantly elevated initially at 214/93 in setting of pain, anxiety -> improved to 153/76 Does not take anti-hypertensives at home PRN IV Labetalol Blood pressure has been stabilized (3) Cat bite of hand: Plan: Bite from unvaccinated 5 mo old kitten earlier today, directed to ED from urgent care Continue Unasyn, follow wound culture Wound care nurse consulted Left thumb wound seems to have worsened with adjoining swelling, redness and tenderness We will continue intravenous Unasyn Advised to elevate the left upper extremity and try to keep it above the level of the heart The left hand swelling is improved Left thumb swelling is not any better-advised to keep the left hand elevated above the level of the heart and will reexamine tomorrow Likely discharge tomorrow on oral Augmentin (4) Alcohol use: Plan: Endorses daily whisky consumption, ~ 1.5oz. No issues with withdrawal in the past. Last drink last evening. Thiamine and folic acid ordered. Add PRN ativan if s/sx of withdrawal (5) Asthma: Plan: Stable. Albuterol inhaler PRN (6) Pre-diabetes: Plan: A1c of 6.3 in 11/16 Carb consistent diet Repeat a1c in AM DVT Ppx: SQ heparin Code status: FULL PCP: Getea Dispo: Observation med surg Admission and Anticipated Discharge Date Admission Date: June 15, 2021 Subjective 06/14/2021 The patient was seen and examined in medical telemetry unit He has been complaining of left thumb swelling with throbbing pain and increasing redness No chest pain and/or shortness of breath Denies any fever and or chills 06/15/2021 The patient was seen and examined in medical telemetry unit He has been feeling much better and the left hand swelling has improved though the left thumb remained inflamed, swollen and tender Denies any other significant symptoms Review of Systems Review of Systems: All systems reviewed and are unremarkable except as noted below Musculoskeletal: Swelling of the left thumb and adjoining area of the left hand with redness and tenderness Physical Exam Physical Exam: Sitting at the edge of the bed without any acute distress Constitutional: well developed, well nourished and + obese Eyes: PERRL, conjunctivae normal, anicteric sclerae ENMT: external ear and nose normal, oropharynx normal Neck: trachea midline, no thyromegaly Respiratory: no respiratory distress Auscultation: lungs clear to auscultation bilaterally Cardiovascular: Rate/Rhythm: regular rate and regular rhythm; not tachycardic Heart Sounds: normal S1 and normal S2; no murmur Extremities: + edema (Trace edema bilaterally) Gastrointestinal (Abdomen): Inspection/Auscultation: normal bowel sounds; ab domen not distended Percussion/Palpation: abdomen soft; abdomen nontender Musculoskeletal: Left thumb is swollen and tender but without any fluctuation on examination Neurologic: Alert, awake and oriented x3 Results & Data Results & Data ([facility]) Vital Signs (Past 12 Hours) Vital Signs Temp Pulse Pulse Pulse Resp BP Pulse Ox 06/15/21 11:50 36.8 C 64 20 159/76 H 98 06/15/21 07:37 36.7 C 75 20 132/62 06/15/21 07:18 64 06/15/21 05:04 82 06/15/21 03:05 37.1 C 68 18 153/54 H 94 06/15/21 03:00 82 Laboratory Results Short CBC 06/15/21 Range/Units 07:32 WBC 6.01 (4.8-10.8) K/uL Hgb 14.3 (14.0-18.0) g/dL Hct 42.6 (42-52) % Plt Count 196 (130-400) K/uL Medications Administered Current Inpatient Medications Acetaminophen (Acetaminophen 325 Mg Tab) 650 mg PO Q4H PRN PRN Reason: Pain or Fever Stop: 07/13/21 22:21 Last Admin: 06/14/21 11:53 Dose: 650 mg Documented by: Albuterol (Albuterol Hfa 8 Gm Inhaler) 2 puffs INH QID PRN PRN Reason: Shortness Of Breath Or Wheezing Stop: 07/13/21 22:21 Folic Acid (Folic Acid 1 Mg Tab) 1 mg PO QAM REPLACED BY [facility] Stop: 07/14/21 08:59 Last Admin: 06/15/21 08:20 Dose: 1 mg Documented by: Heparin Sodium (Porcine) (Heparin Sod 5,000 Unit/0.5 Ml Vial) 5,000 units SQ Q8 REPLACED BY [facility] Stop: 07/13/21 22:21 Last Admin: 06/15/21 13:25 Dose: 5,000 units Documented by: Ampicillin Sodium/Sulbactam Sodium 3,000 mg/ Sodium Chloride 108 mls @ 200 mls/hr IV Q6H REPLACED BY [facility]; Protocol Stop: 06/21/21 10:44 Last Infusion: 06/15/21 13:07 Dose: Infused Documented by: Labetalol HCl (Labetalol Hcl Iv 5 Mg/Ml 20ml) 10 mg IV Q8H PRN PRN Reason: SBP >180 or DBP >100 Stop: 07/13/21 22:21 Nitroglycerin (Nitroglycerin Sl 0.4 Mg/Tab Tab) 0.4 mg SL UD PRN PRN Reason: Chest Pain Stop: 07/13/21 22:21 Ondansetron HCl (Ondansetron Inj 2 Mg/Ml 2 Ml Vial) 4 mg IV Q6H PRN PRN Reason: Nausea Stop: 07/13/21 22:21 Last Admin: 06/14/21 00:45 Dose: 4 mg Documented by: Oxycodone/Acetaminophen (Oxycodone/Acetaminophen 5mg/325mg Tab) 1 tab PO Q6H PRN PRN Reason: Pain Stop: 06/27/21 22:21 Polyethylene Glycol (Polyethylene (Miralax) 17 Gm Pack) 17 gm PO DAILY PRN PRN Reason: Constipation Stop: 07/13/21 22:21 Last Admin: 06/14/21 18:28 Dose: 17 gm Documented by: Thiamine HCl (Thiamine Hcl 100 Mg Tab) [facility] Stop: 07/14/21 08:59 Last Admin: 06/15/21 08:20 Dose: 100 mg Documented by:
[2021-06-15] MEDS: POLYETHYLENE (MIRALAX) 17 GM PACK PO PRN (21:36)
[2021-06-16] MEDS: AMPICILLIN/SULBACTAM SOD 3,000 MG in 0.9 % SODIUM CHLORIDE 100 ML IV SCH ×3 (04:32→15:34)
[2021-06-16] MEDS: HEPARIN SOD 5,000 UNIT/0.5 ML VIAL SQ SCH ×2 (06:15→11:14)
[2021-06-16] MEDS: FOLIC ACID 1 MG TAB PO SCH (07:35)
[2021-06-16] MEDS: THIAMINE HCL 100 MG TAB PO SCH (07:35)
[2021-06-16 08:30] LABS: Hematocrit (blood only) 43.4 % (42-52); Hemoglobin 14.8 g/dL (14.0-18.0); Mean Corpuscular Hemoglobin 31.6 pg (25-34); Mean Corpuscular Hgb Conc 34.1 g/dL (32-36); Mean Corpuscular Volume 92.5 fL (80-100); Mean Platelet Volume 9.7 fL (7.4-10.4); Platelet Count 221 K/uL (130-400); RDW Coefficient of Variation 12.8 % (11.5-14.5); RDW Standard Deviation 43.4 fL (36.4-46.3); Red Blood Count 4.69 M/uL (4.7-6.1); White Blood Count 6.16 K/uL (4.8-10.8)
--- NOTE | 2021-06-16 15:26 | Hospitalist Progress Note ---
Date of Service June 16, 2021 Assessment & Plan (1) Elevated troponin: Plan: This is a 66yo M with a PMH of pre-diabetes, dyslipidemia, BPH, asthma and other medical problems listed below who presents with cat bite and was found to have elevated BP and troponin. Initial troponin 0.09 in setting of elevated BP of 214/93 BP improved to 153/76 with Labetalol in ED No chest pain, CXR without acute changes, EKG with sinus tachycardia @ 114 bpm, chest CTA without evidence of PE Underlying HTN, dyslipidemia, pre-diabetes Serial troponins have been trending down and the EKG did not show any change Troponin elevation was due to strain secondary to high blood pressure No evidence of ACS and he remains free from any symptoms (2) HTN (hypertension): Plan: Hypertensive crisis e/b BP 214/93 and +Troponins BP significantly elevated initially at 214/93 in setting of pain, anxiety -> improved to 153/76 Does not take anti-hypertensives at home PRN IV Labetalol Blood pressure has been stabilized and remains stable (3) Cat bite of hand: Plan: Cellulitis of left hand in setting of cat bite requiring IV antibiotic therapy Bite from unvaccinated 5 mo old kitten earlier today, directed to ED from urgent care Continue Unasyn, follow wound culture Wound care nurse consulted Left thumb wound seems to have worsened with adjoining swelling, redness and tenderness We will continue intravenous Unasyn Advised to elevate the left upper extremity and try to keep it above the level of the heart The left hand swelling is improved Left thumb swelling is not any better-advised to keep the left hand elevated above the level of the heart and will reexamine tomorrow Left thumb is improved and may have a small abscess-we will apply warm soaking water to see if there is any drainage Likely be discharged this afternoon and if not tomorrow (4) Alcohol use: Plan: Endorses daily whisky consumption, ~ 1.5oz. No issues with withdrawal in the past. Last drink last evening. Thiamine and folic acid ordered. Add PRN ativan if s/sx of withdrawal (5) Asthma: Plan: Stable. Albuterol inhaler PRN (6) Pre-diabetes: Plan: A1c of 6.3 in 11/16 Carb consistent diet Repeat a1c in AM DVT Ppx: SQ heparin Code status: FULL PCP: Geeta Dispo: Observation med surg Admission and Anticipated Discharge Date Admission Date: June 15, 2021 Subjective 06/14/2021 The patient was seen and examined in medical telemetry unit He has been complaining of left thumb swelling with throbbing pain and increasing redness No chest pain and/or shortness of breath Denies any fever and or chills 06/15/2021 The patient was seen and examined in medical telemetry unit He has been feeling much better and the left hand swelling has improved though the left thumb remained inflamed, swollen and tender Denies any other significant symptoms 06/16/2021 Patient was seen and examined in medical floor His left thumb is still red and swollen but has improved a lot Denies any fever and or chills, denies any throbbing pain Review of Systems Review of Systems: All systems reviewed and are unremarkable except as noted below Musculoskeletal: Swelling and redness of her left thumb Physical Exam Physical Exam: Sitting at the edge of the bed without any acute distress Constitutional: well developed, well nourished and + obese Eyes: PERRL, conjunctivae normal, anicteric sclerae ENMT: external ear and nose normal, oropharynx normal Neck: trachea midline, no thyromegaly Respiratory: no respiratory distress Auscultation: lungs clear to auscultation bilaterally Cardiovascular: Rate/Rhythm: regular rate and regular rhythm; not tachycardic Heart Sounds: normal S1 and normal S2; no murmur Extremities: + edema (Trace edema bilaterally) Gastrointestinal (Abdomen): Inspection/Auscultation: normal bowel sounds; abdomen not distended Percussion/Palpation: abdomen soft; abdomen nontender Musculoskeletal: Swelling of metatarsophalangeal joint of left thumb with a djoining area of redness and tenderness Neurologic: normal touch/pain/proprioception; no focal motor deficits Results & Data Results & Data ([facility]) Vital Signs (Past 12 Hours) Vital Signs Temp Pulse Pulse Pulse Resp BP BP 06/16/21 14:57 71 06/16/21 14:21 37.0 C 70 18 146/78 H 06/16/21 10:59 36.7 C 62 18 157/71 H 06/16/21 08:00 36.5 C 74 18 116/76 06/16/21 07:12 69 Pulse Ox 06/16/21 14:57 06/16/21 14:21 96 06/16/21 10:59 95 06/16/21 08:00 96 06/16/21 07:12 Laboratory Results Short CBC 06/16/21 Range/Units 08:06 WBC 6.16 (4.8-10.8) K/uL Hgb 14.8 (14.0-18.0) g/dL Hct 43.4 (42-52) % Plt Count 221 (130-400) K/uL Medications Administered Current Inpatient Medications Acetaminophen (Acetaminophen 325 Mg Tab) 650 mg PO Q4H PRN PRN Reason: Pain or Fever Stop: 07/13/21 22:21 Last Admin: 06/14/21 11:53 Dose: 650 mg Documented by: Albuterol (Albuterol Hfa 8 Gm Inhaler) 2 puffs INH QID PRN PRN Reason: Shortness Of Breath Or Wheezing Stop: 07/13/21 22:21 Folic Acid (Folic Acid 1 Mg Tab) 1 mg PO QAM [facility] Stop: 07/14/21 08:59 Last Admin: 06/16/21 07:35 Dose: 1 mg Documented by: Heparin Sodium (Porcine) (Heparin Sod 5,000 Unit/0.5 Ml Vial) 5,000 units SQ Q8 [place] Stop: 07/13/21 22:21 Last Admin: 06/16/21 11:14 Dose: 5,000 units Documented by: Ampicillin Sodium/Sulbactam Sodium 3,000 mg/ Sodium Chloride 108 mls @ 200 mls/hr IV Q6H [facility]; Protocol Stop: 06/21/21 10:44 Last Infusion: 06/16/21 11:49 Dose: Infused Documented by: Labetalol HCl (Labetalol Hcl Iv 5 Mg/Ml 20ml) 10 mg IV Q8H PRN PRN Reason: SBP >180 or DBP >100 Stop: 07/13/21 22:21 Nitroglycerin (Nitroglycerin Sl 0.4 Mg/Tab Tab) 0.4 mg SL UD PRN PRN Reason: Chest Pain Stop: 07/13/21 22:21 Ondansetron HCl (Ondansetron Inj 2 Mg/Ml 2 Ml Vial) 4 mg IV Q6H PRN PRN Reason: Nausea Stop: 07/13/21 22:21 Last Admin: 06/14/21 00:45 Dose: 4 mg Documented by: Oxycodone/Acetaminophen (Oxycodone/Acetaminophen 5mg/325mg Tab) 1 tab PO Q6H PRN PRN Reason: Pain Stop: 06/27/21 22:21 Polyethylene Glycol (Polyethylene (Miralax) 17 Gm Pack) 17 gm PO DAILY PRN PRN Reason: Constipation Stop: 07/13/21 22:21 Last Admin: 06/15/21 21:36 Dose: 17 gm Documented by: Thiamine HCl (Thiamine Hcl 100 Mg Tab) 100 mg PO [facility] Stop: 07/14/21 08:59 Last Admin: 06/16/21 07:35 Dose: 100 mg Documented by:
[2021-06-16] MEDS ORDERED: AMOXICILLIN/CLAVULANATE 500 MG TAB PO ONE (16:45)
--- NOTE | 2021-06-17 08:48 | Discharge Summary ---
Date of Service June 17, 2021 Admission HPI Per Admitting Provider This is a 66yo M with a PMH of pre-diabetes, dyslipidemia, BPH, asthma and other medical problems listed below who presents with cat bite. Bite was from 5 month old kitten at the base of his left thumb. [facility] and prescribed Augmentin and was directed to come for rabies vaccine. [place] lightheaded and nauseous on way to ER. Had pain originating in left thumb that extended up to left arm and shoulder. Also endorses difficulty catching his breath earlier today that resolved with rest. Endorses mild headache. Denies any fever, palpitations, vomiting, dysuria, diarrhea or constipation. Does ex perience exertional chest discomfort occasionally, most recently when shoveling snow. Has been diagnosed with HTN and dyslipidemia previously but is not taking any medications. Occasionally smokes cigars. Drinks 1.5oz whisky every night. Denies issues with withdrawal in the past. Also recently seen by derm for stasis dermatitis wounds of BLE. Admission Exam Per Admitting Provider Vitals signs as noted above General Appearance:Moderately built and nourished, no apparent distress Head: normocephalic, Atraumatic Eyes: normal inspection, EOMI Neck: supple, Trachea midline Respiratory/Chest: Normal breath sounds, CTA, No accessory muscle use Cardiovascular: S1, S2, No murmur Abdomen/GI:Soft, Non tender, Bowel sounds present Extremities/Musculoskeletal:normal inspection, Left thumb bite wound, erythema, tender, B/L LE abrasions--chronic as per patient Neurologic/Psych:AAOX3, grossly no focal neurological deficits Skin: normal color, warm Principal Diagnosis Cellulitis of left thumb and hand in setting of cat bite, hypertensive urgency, controlled asthma Discharge Exam Sitting at the edge of the bed without any acute distress Constitutional well developed, well nourished and + obese Eyes PERRL, conjunctivae normal, anicteric sclerae ENMT external ear and nose normal, oropharynx normal Neck trachea midline, no thyromegaly Respiratory no respiratory distress Auscultation: lungs clear to auscultation bilaterally Cardiovascular Rate/Rhythm: regular rate and regular rhythm; not tachycardic Heart Sounds: normal S1 and normal S2; no murmur Extremities: + edema (Trace edema bilaterally) Gastrointestinal (Abdomen) Inspection/Auscultation: normal bowel sounds; abdomen not distended Percussion/Palpation: abdomen soft; abdomen nontender Neurologic normal touch/pain/proprioception; no focal motor deficits Discharge Data Allergies Allergy/AdvReac Type Severity Reaction Status Date / Time Penicillins Allergy Unknown strong Unverified 06/16/21 16:34 family hx of allergy citalopram AdvReac Mild Tachycardia Unverified 06/16/21 16:35 Consultations 06/13/21 20:10 ED Decision to Admit Stat Ordered Studies 06/13/21 18:40 CT angio chest PE protocol Stat Hospital Course (1) Elevated troponin: This is a 66yo M with a PMH of pre-diabetes, dyslipidemia, BPH, asthma and other medical problems listed below who presents with cat bite and was found to have elevated BP and troponin. Initial troponin 0.09 in setting of elevated BP of 214/93 BP improved to 153/76 with Labetalol in ED No chest pain, CXR without acute changes, EKG with sinus tachycardia @ 114 bpm, chest CTA without evidence of PE Underlying HTN, dyslipidemia, pre-diabetes Serial troponins have been trending down and the EKG did not show any change Troponin elevation was due to strain secondary to high blood pressure No evidence of ACS and he remains free from any symptoms (2) HTN (hypertension): Hypertensive crisis e/b BP 214/93 and +Troponins BP significantly elevated initially at 214/93 in setting of pain, anxiety -> improved to 153/76 Does not take anti-hypertensives at home PRN IV Labetalol Blood pressure has been stabilized and remains stable (3) Cat bite of hand: Cellulitis of left hand in setting of cat bite requiring IV antibiotic therapy Bite from unvaccinated 5 mo old kitten earlier today, directed to ED from urgent care Continue Unasyn, follow wound culture Wound care nurse consulted Left thumb wound seems to have worsened with adjoining swelling, redness and tenderness We will continue intravenous Unasyn Advised to elevate the left upper extremity and try to keep it above the level of the heart The left hand swelling is improved Left thumb swelling is not any better-advised to keep the left hand elevated above the level of the heart and will reexamine tomorrow Left thumb is improved and may have a small abscess-we will apply warm soaking water to see if there is any drainage Likely be discharged this afternoon and if not tomorrow (4) Alcohol use: Endorses daily whisky consumption, ~ 1.5oz. No issues with withdrawal in the past. Last drink last evening. Thiamine and folic acid ordered. Add PRN ativan if s/sx of withdrawal (5) Asthma: Stable. Albuterol inhaler PRN (6) Pre-diabetes: A1c of 6.3 in 11/16 Carb consistent diet Repeat a1c in AM DVT Ppx: SQ heparin Code status: FULL PCP: Geeta Dispo: Observation med surg Total Time Total Time Spent Total Time Spent (In Minutes): 35 minutes Discharge Plan Discharge Items Patient Disposition: Home - Self-Care Reason For Visit: HTNIVE URGENCY, TROP ELEVATION, CAT BITE Discharge Diagnosis: Cellulitis of left thumb and hand in setting of cat bite, hypertensive urgency, controlled asthma Condition on Discharge: Good Activity: Resume your previous activity Non-emergency contact: Primary Care Provider Call non-emergency contact if: you have any medication questions and your symptoms worsen Follow-up/Referrals: Justin Connor MD [Outside Practitioners] - (Date & Time 06/22/2021 11:20 AM Provider Justin Connor MD Department [facility] ) Diet: Heart Healthy and Low Sodium (2gm) Addtl Attending Provider Instructions: Try soaking your left thumb in warm salt water and use alcohol wipe to clean the wound area Finish the course of antibiotic Please give appointment with your primary care provider for follow-up May need to restart medicine to control blood pressure if continues to remain elevated Pending Studies at Discharge: No Stand-Alone Forms: [employer], Smoking Cessation Medications and DC Order Prescriptions: New thiamine HCl (vitamin B1) 100 mg Tablet 100 mg PO QAM 30 Days Qty: 30 RF: 0 folic acid 1 mg Tablet 1 mg PO QAM 30 Days Qty: 30 RF: 0 amoxicillin-pot clavulanate [Augmentin] 500-125 mg tablet 1 tab PO TID Qty: 12 RF: 0 Continued furosemide 20 mg Tablet 20 mg PO DAILY PRN (Reason: Edema) RF: 0 albuterol sulfate [Ventolin HFA] 90 mcg/actuation Hfa Aerosol Inhaler 2 puff INHALATION QID PRN (Reason: Shortness Of Breath Or Wheezing) RF: 0 Discharge Orders: Discharge Order (Routine); Ordered 06/16/21 Ordered By: Wilner Gant/Other Patient Handouts: Prediabetes, 5 Steps for Eating Healthier Admission Data Admit Date/Time: 06/15/21 13:55 Attending Provider: Wilner Myers Admit Provider: Dustin Huggins Primary Care Provider: PCP,NO Other Providers: Dustin Huggins Other Interventions: Discharge Summary Assessment (RN) Last Done: 06/16/21 17:34
== END 2021-06-16 18:12 | disposition home or self-care (01) | DRG 603 ==
LOC: ED 17:08 → EDINP 17:08 → SUATTDRO 20:34 → EDINP 22:42 → 2N 23:22

== ENCOUNTER 2021-11-27 13:19 | Inpatient (IN) ==
[2021-11-27 15:40] LABS: Basophils # (auto) 0.03 K/uL (0-0.2); Basophils % (auto) 0.6 %; Eosinophils # (auto) 0.01 K/uL (0-0.50); Eosinophils % (auto) 0.2 %; Hematocrit (blood only) 39.3 % (40.1-51.0); Hemoglobin 13.5 g/dl (14.0-18.0); Immature Granulocytes # (auto) 0.02 K/uL (0.00-0.02); Immature Granulocytes % (auto) 0.4 %; Lymphocytes # (auto) 0.62 K/uL (1.2-3.4); Lymphocytes % (auto) 11.4 %; Mean Corpuscular Hemoglobin 31.5 pg (25.0-34.0); Mean Corpuscular Hgb Conc 34.4 g/dL (32.0-36.0); Mean Corpuscular Volume 91.6 fL (80.0-100.0); Mean Platelet Volume 9.5 fL (9.4-12.4); Monocytes # (auto) 0.12 K/uL (0.24-0.82); Monocytes % (auto) 2.2 %; Neutrophils # (auto) 4.63 K/uL (1.4-6.5); Neutrophils % (auto) 85.2 %; Platelet Count 256 K/uL (130-400); RDW Coefficient of Variation 12.3 % (11.5-14.5); RDW Standard Deviation 40.9 fL (36.4-46.3); Red Blood Count 4.29 M/uL (4.63-6.08); White Blood Count 5.43 K/ul (4.8-10.8)
--- NOTE | 2021-11-27 16:00 | Emergency Department Note ---
History of Present Illness General Chief complaint: Shortness of Breath/Dyspnea Stated complaint: ASTHMA, SOB Time Seen by Provider: 11/27/21 15:41 Source: patient, RN notes reviewed and old records reviewed Mode of arrival: ambulatory Limitations: no limitations History of Present Illness Maximum Pain Intensity: 3 This patient is a 66-year-old male comes in after feeling short of breath. He said he got COVID for the second time on November 05 and since then has some shortness of breath. Has been coughing with some white phlegm he does have an inhaler and has underlying asthma and that seems to help no chest pain but he does have some fullness at times with this. No trauma or injury start on prednisone this morning as well as Advair. No pain or swelling in his legs. No recent fever or chills. No history of blood clots. Home Medications Medication Instructions Recorded Confirmed Type albuterol sulfate 90 mcg/actuation 2 puff inhalation QID PRN 06/13/21 11/27/21 History aerosol inhaler (Ventolin HFA) Shortness Of Breath Or Wheezing azithromycin 250 mg tablet 250 mg PO DAILY 11/27/21 11/27/21 History betamethasone dipropionate 0.05 % 1 applic topical BID 11/27/21 11/27/21 History topical ointment fluticasone 250 mcg-salmeterol 50 1 inh inhalation BID 11/27/21 11/27/21 History mcg/dose blistr powdr for inhalation fluticasone propionate 50 2 spray intranasal DAILY 11/27/21 11/27/21 History mcg/actuation nasal spray,suspension lisinopril 5 mg tablet 5 mg PO QAM 11/27/21 11/27/21 History mupirocin 2 % topical ointment 1 applic topical TID 11/27/21 11/27/21 History omeprazole 20 mg capsule,delayed 20 mg PO DAILYBB 11/27/21 11/27/21 History release prednisone 20 mg tablet 40 mg PO DAILY 11/27/21 11/27/21 History Allergies Allergy/AdvReac Type Severity Reaction Status Date / Time Penicillins Allergy Unknown strong Unverified 06/16/21 16:34 family hx of allergy citalopram AdvReac Mild Tachycardia Unverified 06/16/21 16:35 Past Med/Surg History Medical History Alcohol use Asthma Dyslipidemia GERD (gastroesophageal reflux disease) HTN (hypertension) Pre-diabetes Surgical History History of tonsillectomy TONSILS REMOVED WHEN HE WAS 10 YRS OLD. Family History Other Cancer Heart disease Stroke Social History Smoking Status: Current some day smoker Tobacco Type: Cigars Second Hand Exposure: Yes; Hx Alcohol Use: Yes Alcohol type: beer and hard liquor Alcohol type Comment: 1.5 oz whisky every night Hx Substance Use: No Preferred Language: Czech Communication Ability: Effective Semiautomatic Taper Operator Required: No Beliefs That Will Affect Care: None Current Living Situation: Significant Other Feels Safe at Home: Yes Assistive Devices: None Review of Systems A total of 10 systems reviewed and were otherwise negative Physical Exam Vital Signs Vital Signs - 24 hr 11/27/21 13:25 11/27/21 13:25 11/27/21 16:05 Temperature 37.1 C Temperature Source Temporal Artery Scan Pulse Rate 87 Respiratory Rate 18 Respiratory Effort / Characteristics Non-Labored Spontaneous Non-Labored Spontaneous Respiratory Depth Normal Respiratory Pattern Regular Blood Pressure 179/88 H Blood Pressure Mean 118 Blood Pressure Position Sitting Pulse Oximetry 96 96 Oxygen Delivery Method Room Air Room Air Oxygen Flow Rate Sepsis Recent Fever Within 48 Hours No Sepsis New/Unexplained Change in Mental Status No Sepsis Action Taken by Nursing No Action Required 11/27/21 17:28 11/27/21 17:28 Temperature Temperature Source Pulse Rate 92 H Respiratory Rate 18 Respiratory Effort / Characteristics Respiratory Depth Respiratory Pattern Blood Pressure Blood Pressure Mean Blood Pressure Position Pulse Oximetry 950 H 95 Oxygen Delivery Method Room Air Room Air Oxygen Flow Rate 0 Sepsis Recent Fever Within 48 Hours Sepsis New/Unexplained Change in Mental Status Sepsis Action Taken by Nursing General: Well developed well nourished middle-aged male who appears non-ill and in no acute distress, breathing comfortably on room air. Normal speech HEENT: Normal cephalic atraumatic. Pupils are equal round and reactive to light. Extraocular movements are intact. Oropharynx is pink with moist mucous membranes. No swelling of the mouth lips or tongue. Neck: Supple with a midline trachea. No meningeal signs or stiffness, no JVD or bruits. No Stridor. Chest: Clear to auscultation bilaterally. No wheezes or rhonchi. No increased work of breathing. Heart: Regular rate and rhythm without murmurs or gallops. Abdomen: Soft nontender, nondistended without rebound guarding or rigidity. Extremities: No cyanosis clubbing or edema. No calf tenderness or assymetry Spine/Back. Non tender to palpation. No CVA tenderness Skin: Good turgor without rashes. Neurologic exam: Cranial nerves two through 12 are intact. Motor and sensation are intact and symmetrical throughout. Course Administered Medications Discontinued Medications Ioversol (Optiray 320 125ml) 119 ml IV ONCE ONE Stop: 11/27/21 17:22 Last Admin: 11/27/21 17:21 Dose: 119 ml Documented By: STEFFEN Lisinopril (Lisinopril 5 Mg Tab) 5 mg PO NOW ONE Stop: 11/27/21 19:46 Last Admin: 11/27/21 20:12 Dose: 5 mg Documented By: MITZI Medical Decision Making Differential Diagnosis COVID, complications related COVID, asthma, electrolyte or metabolic abnorma lity, PE, cardiac disease Medical Records Attestation: I reviewed the patient's medical records. Home Medications Current Medication List: was personally reviewed by me Laboratory Data Attestation: I reviewed the patient's lab results. Result diagrams: 11/27/21 15:30 11/27/21 15:30 Lab Results 11/27/21 11/27/21 11/27/21 Range/Units 15:30 15:30 15:30 WBC 5.43 (4.8-10.8) K/ul RBC 4.29 L (4.63-6.08) M/uL Hgb 13.5 L (14.0-18.0) g/dl Hct 39.3 L (40.1-51.0) % MCV 91.6 (80.0-100.0) fL MCH 31.5 (25.0-34.0) pg MCHC 34.4 (32.0-36.0) g/dL RDW Std Deviation 40.9 (36.4-46.3) fL RDW Coeff of Jennie 12.3 (11.5-14.5) % Plt Count 256 (130-400) K/uL MPV 9.5 (9.4-12.4) fL Immature Gran % (Auto) 0.4 % Neut % (Auto) 85.2 % Lymph % (Auto) 11.4 % [place] % (Auto) 2.2 % Eos % (Auto) 0.2 % Baso % (Auto) 0.6 % Neut # (Auto) 4.63 (1.4-6.5) K/uL Lymph # (Auto) 0.62 L (1.2-3.4) K/uL [place] # (Auto) 0.12 L (0.24-0.82) K/uL Eos # (Auto) 0.01 (0-0.50) K/uL Baso # (Auto) 0.03 (0-0.2) K/uL Immature Gran # (Auto) 0.02 (0.00-0.02) K/uL PT 11.2 (9.0-12.0) Seconds INR 1.1 (0.9-1.1) APTT 29.8 (21.0-31.0) Seconds PTT Ratio 1.1 D-Dimer 530 H* (0-500) ug/L FEU Sodium 137 (136-145) mmol/L Potassium 3.9 (3.5-5.1) mmol/L Chloride 105 (98-107) mmol/L Carbon Dioxide 24 (21-32) mmol/L Anion Gap 8 (3-11) BUN 14 (6-23) mg/dl Creatinine 1.01 (0.6-1.4) mg/dl Est Cr Clr Drug Dosing 86.6 ml/min Est GFR ( Amer) 89.4 ml/min Est GFR (Non-Af Amer) 77.1 ml/min BUN/Creatinine Ratio 13.9 (10-20) Glucose 140 H (70-99(Fasting)) mg/dl Calcium 9.4 (8.5-10.1) mg/dl Magnesium 2.0 (1.7-2.4) mg/dl Total Bilirubin 0.8 (0.2-1.0) mg/dl AST 21 (13-39) U/L ALT 26 (7-52) U/L Alkaline Phosphatase 30 L (34-104) U/L Troponin I High Sens 5.2 (0-20) pg/ml Total Protein 7.9 (6.0-8.3) gm/dl Albumin 4.3 (3.4-5.0) gm/dl Globulin 3.6 (2.5-4.0) gm/dl Albumin/Globulin Ratio 1.2 (0.9-2) SARS-CoV-2 (PCR) (Negative) Influenza Type A (PCR) (Neg) Influenza Type B (PCR) (Neg) RSV (RT-PCR) (Neg) 11/27/21 Range/Units 15:30 WBC (4.8-10.8) K/ul RBC (4.63-6.08) M/uL Hgb (14.0-18.0) g/dl Hct (40.1-51.0) % MCV (80.0-100.0) fL MCH (25.0-34.0) pg MCHC (32.0-36.0) g/dL RDW Std Deviation (36.4-46.3) fL RDW Coeff of Jennie (11.5-14.5) % Plt Count (130-400) K/uL MPV (9.4-12.4) fL Immature Gran % (Auto) % Neut % (Auto) % Lymph % (Auto) % [place] % (Auto) % Eos % (Auto) % Baso % (Auto) % Neut # (Auto) (1.4-6.5) K/uL Lymph # (Auto) (1.2-3.4) K/uL [place] # (Auto) (0.24-0.82) K/uL Eos # (Auto) (0-0.50) K/uL Baso # (Auto) (0-0.2) K/uL Immature Gran # (Auto) (0.00-0.02) K/uL PT (9.0-12.0) Seconds INR (0.9-1.1) APTT (21.0-31.0) Seconds PTT Ratio D-Dimer (0-500) ug/L FEU Sodium (136-145) mmol/L Potassium (3.5-5.1) mmol/L Chloride (98-107) mmol/L Carbon Dioxide (21-32) mmol/L Anion Gap (3-11) BUN (6-23) mg/dl Creatinine (0.6-1.4) mg/dl Est Cr Clr Drug Dosing ml/min Est GFR ( Amer) ml/min Est GFR (Non-Af Amer) ml/min BUN/Creatinine Ratio (10-20) Glucose (70-99(Fasting)) mg/dl Calcium (8.5-10.1) mg/dl Magnesium (1.7-2.4) mg/dl Total Bilirubin (0.2-1.0) mg/dl AST (13-39) U/L ALT (7-52) U/L Alkaline Phosphatase (34-104) U/L Troponin I High Sens (0-20) pg/ml Total Protein (6.0-8.3) gm/dl Albumin (3.4-5.0) gm/dl Globulin (2.5-4.0) gm/dl Albumin/Globulin Ratio (0.9-2) SARS-CoV-2 (PCR) POSITIVE A* (Negative) Influenza Type A (PCR) Negative (Neg) Influenza Type B (PCR) Negative (Neg) RSV (RT-PCR) Negative (Neg) Imaging Data Attestation: I personally reviewed and interpreted this imaging study as follows: My Impression: Chest x-rayno acute infiltrate, failure, pneumothorax seen Radiologist's Impression: Chest X-Ray 11/27/21 15:03 XR chest 1V portable CLINICAL HISTORY: Shortness of breath. COMPARISON STUDY: Chest CT June 13, 2021. Chest radiograph November 25, 2021. FINDINGS: Lung volumes are normal. Lungs are clear. There is no pneumothorax or pleural effusion. Cardiac size is normal. Mediastinal contours are normal. There is no evidence for pulmonary edema. IMPRESSION: No acute cardiopulmonary findings. ACT 112: Negative or not required by law. Electronically signed by: Angelito Park M.D. 11/27/2021 5:06 PM Chest CTA 11/27/21 15:55 CT angio chest PE protocol CT DOSE: 599.95 mGy.cm HISTORY: 66 years-old Male with PE. Acute shortness of breath with chest pressure TECHNIQUE: Multiple CTA images of the chest were obtained after the intravenous administration of 119 ml Optiray. Coronal and sagittal MIPS were obtained from the axial data set and were submitted for review. All measurements were obtained according to NASCET criteria. A dose lowering technique was utilized adhering to the principles of ALARA. COMPARISON: Chest radiograph of same day, CT chest 06/13/2021 FINDINGS: CTA: Mild cardiomegaly. No pericardial effusion. Extensive coronary artery calcifications. No thoracic aortic aneurysm or dissection. There is patency of the imaged great vessels. The segmental and subsegmental pulmonary arterial branches are not well opacified and therefore are difficult to evaluate. Linear filling defect is noted within a segmental branch of the left upper lobe on image 167. CT CHEST: Unremarkable thyroid. No lymphadenopathy. There is no pneumothorax, pleural effusion, airspace consolidation or overt pulmonary edema. Mild biapical pleural-parenchymal scarring. Few nodular densities of the lung apices measure up to 4 mm within the right lung apex on image 244 which appear stable and are likely benign. Mild subsegmental patchy and somewhat nodular groundglass opacities are noted within the right lung base. Subpleural 2.2 cm consolidative density of the right lower lobe on image 106 is suggestive of atelectasis/scarring. 4 mm solid nodule right lower lobe on image 140 is new from the prior study. Mild patchy less apparent opacities of the left lung base. A few nodules in the left lung base measure up to 4 mm within the left lower lobe on image 71. Central airways appear patent. No acute process of the imaged upper abdomen. Hepatic steatosis. Unremarkable soft tissues. Degenerative changes of the shoulders and spine. IMPRESSION: 1. Limited exam secondary to contrast bolus timing and respiratory motion artifact. There is a linear filling defect noted involving a segmental pulmonary arterial branch within the left upper lobe suspicious for pulmonary embolus. Correlation with lower extremity Doppler recommended. 2. Mild patchy groundglass and nodular opacities of the right greater than left lung bases are similar to the prior study and are likely infectious or inflammatory. Solid pulmonary nodules measure up to 4 mm. 3. No pleural effusion or lymphadenopathy. 4. Hepatic steatosis. Please refer to below summary of Fleischner criteria recommendations for follow- up of incidental CT nodules (Theresa Bloom, Guidelines for management of small pulmonary nodules detected on CT scans: A statement from the Fleischner Society, Radiology 237: [phone].) SOLID NODULES Multiple nodules size: <6 mm * Low risk patients: no routine follow-up * high risk patients: optional CT at 12 months Note: newly detected indeterminate nodule in persons 35 years of age or older. * Low risk patients: minimal or absent history of smoking and/or other known risk factors * high risk patients: history of smoking or of other known risk factors (e.g. first degree relative with lung cancer, or exposure to asbestos, radon, uranium) * if a nodule up to 8 mm is partly solid or is ground glass further follow-up is required after 24 months to exclude possible slow growing adenocarcinoma (AUDRA) ACT 112: Negative or not required by law. The above report was generated using voice recognition software. It may contain grammatical, syntax or spelling errors. Electronically signed by: Francisco Martinez M.D. 11/27/2021 5:36 PM Venous Doppler Study 11/27/21 18:36 BILATERAL LOWER EXTREMITY VENOUS DOPPLER HISTORY: Acute pain and swelling of the lower legs eval for dvt COMPARISON STUDY: Doppler study 11/25/2021 FINDINGS: There is normal compressibility, flow, and augmentation within the bilateral lower extremity deep venous systems. Nonspecific right inguinal chain lymph node, 4.1 x 0.9 x 1.8 cm with a normal morphologic appearance. This is likely benign. IMPRESSION: No DVT within the right or left lower extremity. ACT 112: Negative or not required by law. Electronically signed by: Francisco Martinez M.D. 11/27/2021 7:46 PM ECG Data Attestation: I personally reviewed and interpreted this ECG as follows: Indication: + chest pain Rate (beats per minute): 81 Rhythm: + normal sinus ECG Intervals/blocks: + Normal QRS, + Normal QT and + Normal NM ECG [place]: + Normal ECG ST segments: + Normal ST segments ECG Findings: no PACs or no PVCs Comparison ECG Date: from (11/22/21) Change: no significant change MDM Narrative This patient comes in as described above. I saw him in the [facility] IV access was established blood work was obtained EKG and chest x- rays obtained he was reassess frequently. EKG shows no ischemic changes or ectopy. Troponin is not elevated he has no significant white count or fever discussed infection. COVID test did come back still positive his symptoms been going on for about 3 weeks. His D-dimer was elevated to do a CTA and there is m otion artifact but there is finding concerning for a possible PE .I did ultrasound his legs are both negative. I do think he needs to be admitted for further treatment and evaluation and potentially repeating the CAT scan. I have consulted Dr. Xiong to see in ER for these measures . Impression & Plan COVID, Pulmonary embolism, SOB (shortness of breath), Chest pain Discharge Plan Visit Data Chief Complaint: Shortness of Breath/Dyspnea Stated Complaint: ASTHMA, SOB ED Provider: Andrew Wylie Discharge Problem: COVID, Pulmonary embolism, SOB (shortness of breath), Chest pain Forms Stand Alone Forms: [facility] Prescriptions Prescriptions: No Action albuterol sulfate [Ventolin HFA] 90 mcg/actuation Hfa Aerosol Inhaler 2 puff INHALATION QID PRN (Reason: Shortness Of Breath Or Wheezing) fluticasone propion-salmeterol 250-50 mcg/dose blister with device 1 inh INHALATION BID Rx Instructions: PER PT "USED LAST PM, BECAME DIZZY/SWEATY SEVERAL TIMES. DON'T THINK I WILL BE USING AGAIN". azithromycin 250 mg tablet 250 mg PO DAILY Rx Instructions: STARTED 11/26/21 FOR 5 DAYS. prednisone 20 mg tablet 40 mg PO DAILY Rx Instructions: STARTED 11/25/21 FOR 5 DAYS. omeprazole 20 mg capsule,delayed release(DR/EC) 20 mg PO DAILYBB lisinopril 5 mg tablet 5 mg PO QAM mupirocin 2 % ointment 1 applic TOPICAL TID Rx Instructions: STARTED 11/25/21 FOR 14 DAYS. betamethasone dipropionate 0.05 % ointment 1 applic TOPICAL BID Rx Instructions: START AFTER MUPIROCIN CREAM. fluticasone propionate 50 mcg/actuation spray,suspension 2 spray INTRANASAL DAILY Referrals Referrals: Justin Connor MD [Primary Care Provider] - : Pulmonary embolism Qualifiers: Pulmonary embolism type: unspecified Chronicity: acute Acute cor pulmonale presence: unspecified Qualified Code(s): I26.99 - Other pulmonary embolism without acute cor pulmonale Chest pain Qualifiers: Chest pain type: unspecified Qualified Code(s): R07.9 - Chest pain, unspecified
[2021-11-27 16:03] LABS: INR 1.1 (0.9-1.1); Partial Thromboplastin Ratio 1.1; Partial Thromboplastin Time 29.8 Seconds (21.0-31.0); Prothrombin Time 11.2 Seconds (9.0-12.0)
[2021-11-27 16:14] LABS: D Dimer 530 ug/L FEU (0-500)
[2021-11-27 16:16] LABS: Albumin Globulin Ratio 1.2 (0.9-2); Albumin Level 4.3 gm/dl (3.4-5.0); BUN Creatinine Ratio 13.9 (10-20); Bilirubin,Total 0.8 mg/dl (0.2-1.0); Calcium 9.4 mg/dl (8.5-10.1); Creatinine Clr Calc Pharmacy 86.6 ml/min; Est GFR (African American) 89.4 ml/min; Est GFR (Non-African American) 77.1 ml/min; Globulin 3.6 gm/dl (2.5-4.0); Potassium 3.9 mmol/L (3.5-5.1); Total Protein 7.9 gm/dl (6.0-8.3)
[2021-11-27 16:18] LABS: Troponin I High Sensitivity 5.2 pg/ml (0-20)
[2021-11-27 16:33] LABS: Influenza A virus by PCR Negative (Neg); Influenza B virus by PCR Negative (Neg); RSV by PCR Negative (Neg)
[2021-11-27 16:36] LABS: SARS CoV2 RNA(COVID-19) InHosp POSITIVE (Negative)
--- NOTE | 2021-11-27 17:08 | XRay Report ---
XR chest 1V portable CLINICAL HISTORY: Shortness of breath. COMPARISON STUDY: Chest CT June 13, 2021. Chest radiograph November 25, 2021. FINDINGS: Lung volumes are normal. Lungs are clear. There is no pneumothorax or pleural effusion. Car diac size is normal. Mediastinal contours are normal. There is no evidence for pulmonary edema. IMPRESSION: No acute cardiopulmonary findings. ACT 112: Negative or not required by law. Electronically signed by: Angelito Park M.D. 11/27/2021 5:06 PM
[2021-11-27] MEDS ORDERED: OPTIRAY 320 125ml IV ONE (17:21)
--- NOTE | 2021-11-27 17:37 | CT Scan Report ---
CT angio chest PE protocol CT DOSE: 599.95 mGy.cm HISTORY: 66 years-old Male with PE. Acute shortness of breath with chest pressure TECHNIQUE: Multiple CTA images of the chest were obtained after the intravenous administration of 119 ml Optiray. Coronal and sagittal MIPS were obtained from the axial data set and were submitted for review. All measurements were obtained according to NASCET criteria. A dose lowering technique was u tilized adhering to the principles of ALARA. COMPARISON: Chest radiograph of same day, CT chest 06/13/2021 FINDINGS: CTA: Mild cardiomegaly. No pericardial effusion. Extensive coronary artery calcifications. No thoracic aor tic aneurysm or dissection. There is patency of the imaged great vessels. The segmental and subsegmen darin pulmonary arterial branches are not well opacified and therefore are difficult to evaluate. Linea r filling defect is noted within a segmental branch of the left upper lobe on image 167. CT CHEST: Unremarkable thyroid. No lymphadenopathy. There is no pneumothorax, pleural effusion, airspace consolidation or overt pulmonary edema. Mild anamaria pical pleural-parenchymal scarring. Few nodular densities of the lung apices measure up to 4 mm withi n the right lung apex on image 244 which appear stable and are likely benign. Mild subsegmental patch y and somewhat nodular groundglass opacities are noted within the right lung base. Subpleural 2.2 cm consolidative density of the right lower lobe on image 106 is suggestive of atelectasis/scarring. 4 m m solid nodule right lower lobe on image 140 is new from the prior study. Mild patchy less apparent o pacities of the left lung base. A few nodules in the left lung base measure up to 4 mm within the lef t lower lobe on image 71. Central airways appear patent. No acute process of the imaged upper abdomen. Hepatic steatosis. Unremarkable soft tissues. Degenerat cherelle changes of the shoulders and spine. IMPRESSION: 1. Limited exam secondary to contrast bolus timing and respiratory motion artifact. There is a linear filling defect noted involving a segmental pulmonary arterial branch within the left upper lobe susp icious for pulmonary embolus. Correlation with lower extremity Doppler recommended. 2. Mild patchy groundglass and nodular opacities of the right greater than left lung bases are simila r to the prior study and are likely infectious or inflammatory. Solid pulmonary nodules measure up to 4 mm. 3. No pleural effusion or lymphadenopathy. 4. Hepatic steatosis. Please refer to below summary of Fleischner criteria recommendations for follow-up of incidental CT n odules (Theresa Bloom, Guidelines for management of small pulmonary nodules detected on CT scans: A nuno marquez from the Fleischner Society, Radiology 237: [phone].) SOLID NODULES Multiple nodules size: <6 mm * Low risk patients: no routine follow-up * high risk patients: optional CT at 12 months Note: newly detected indeterminate nodule in persons 35 years of age or older. * Low risk patients: minimal or absent history of smoking and/or other known risk factors * high risk patients: history of smoking or of other known risk factors (e.g. first degree relative with lung cancer, or exposure to asbestos, radon, uranium) * if a nodule up to 8 mm is partly solid or is ground glass further follow-up is required after 24 m onths to exclude possible slow growing adenocarcinoma (AUDRA) ACT 112: Negative or not required by law. The above report was generated using voice recognition software. It may contain grammatical, syntax o r spelling errors. Electronically signed by: Francisco Martinez M.D. 11/27/2021 5:36 PM
--- NOTE | 2021-11-27 18:15 | Electrocardiogram Report ---
Test Reason : Blood Pressure : / mmHG Vent. Rate : 081 BPM Atrial Rate : 081 BPM P-R Int : 178 ms QRS Dur : 102 ms QT Int : 398 ms P-R-T Axes : 061 033 060 degrees QTc Int : 462 ms Normal sinus rhythm Normal ECG When compared with ECG of 14-JUN-2021 05:09, No significant change was found Confirmed by Karlo Bundy ([id number]) on 11/27/2021 6:14:49 PM Referred By: REFERRED SELF Confirmed By:Kvng Bundy
[2021-11-27] MEDS ORDERED: lisinopril 5 MG TAB PO ONE (19:45)
--- NOTE | 2021-11-27 19:48 | Ultrasound Report ---
BILATERAL LOWER EXTREMITY VENOUS DOPPLER HISTORY: Acute pain and swelling of the lower legs eval for dvt COMPARISON STUDY: Doppler study 11/25/2021 FINDINGS: There is normal compressibility, flow, and augmentation within the bilateral lower extremit y deep venous systems. Nonspecific right inguinal chain lymph node, 4.1 x 0.9 x 1.8 cm with a normal morphologic appearance. This is likely benign. IMPRESSION: No DVT within the right or left lower extremity. ACT 112: Negative or not required by law. Electronically signed by: Francisco Martinez M.D. 11/27/2021 7:46 PM
--- NOTE | 2021-11-27 20:20 | History & Physical Report ---
Date of Service November 27, 2021 Assessment & Plan (1) Pulmonary embolism: Plan: First occurrence Possibly from recent COVID-19 illness (positive test documented at home last November 05, 2021) hypertension, slightly elevated GERD, stable on regimen Prediabetes, Hemoglobin A1c of 6.31 May 2021 chronic anemia, hemoglobin at baseline past cigar use Medical telemetry Weight-based Lovenox Defer discussion regarding home anticoagulation agent between patient and AM provider. Supportive management for residual COVID-19 symptoms. Antibiotics and steroids prescribed outpatient not currently indicated. DVT prophylaxis. Lovenox Full code Text document was generated using [employer] voice recognition software. It may contain grammatical or spelling errors. Kindly contact undersigned for clarification of any documentation item in question. History of Present Illness Chief Complaint: Shortness of breath, abnormal blood test Primary Care Provider: Justin Connor MD History obtained from patient and records. Medical history significant for hypertension, hyperlipidemia, GERD, prediabetes, chronic anemia (baseline hemoglobin of 13), BPH, past tobacco abuse. Last confinement May 2021 for left thumb cellulitis secondary to cat bite. 3 weeks ago, patient developed chest congestion/cold symptoms. Outpatient COVID-19 test from 11/05 was positive. Sick contacts at home. Transient hemoptysis. Right leg swelling noted. Dry cough symptoms currently. Patient consulted [facility] yesterday for worsening congestion/shortness of breath symptoms with left-sided chest pain. Patient sent to [facility] for blood work, chest x-ray, ultrasound of the right leg. Z-Jluis, Advair inhaler, prednisone course, Flonase prescribed by outpatient provider. Albuterol puff as needed prescribed. Chest x-ray negative for pneumonia. RLE venous Dopplers negative for clot. Patient blood pressure did to be high after first dose of Advair yesterday. He felt his head was swollen. D-dimer noted to be abnormal. Patient directed to [facility] ER tonight by outpatient provider. 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 Allergies Allergy/AdvReac Type Severity Reaction Status Date / Time Penicillins Allergy Unknown strong Unverified 06/16/21 16:34 family hx of allergy fluticasone AdvReac Intermediate Verified 11/28/21 05:04 [From Advair Diskus] salmeterol AdvReac Intermediate Verified 11/28/21 05:04 [From Advair Diskus] citalopram AdvReac Mild Tachycardia Unverified 06/16/21 16:35 Home Medications Medication Instructions Recorded Confirmed Type albuterol sulfate 90 mcg/actuation 2 puff inhalation QID PRN 06/13/21 11/27/21 History aerosol inhaler (Ventolin HFA) Shortness Of Breath Or Wheezing azithromycin 250 mg tablet 250 mg PO DAILY 11/27/21 11/27/21 History betamethasone dipropionate 0.05 % 1 applic topical BID 11/27/21 11/27/21 History topical ointment fluticasone 250 mcg-salmeterol 50 1 inh inhalation BID 11/27/21 11/27/21 History mcg/dose blistr powdr for inhalation fluticasone propionate 50 2 spray intranasal DAILY 11/27/21 11/27/21 History mcg/actuation nasal spray,suspension lisinopril 5 mg tablet 5 mg PO QAM 11/27/21 11/27/21 History mupirocin 2 % topical ointment 1 applic topical TID 11/27/21 11/27/21 History omeprazole 20 mg capsule,delayed 20 mg PO DAILYBB 11/27/21 11/27/21 History release prednisone 20 mg tablet 40 mg PO DAILY 11/27/21 11/27/21 History Past Med/Surg History Medical History Alcohol use Asthma Dyslipidemia GERD (gastroesophageal reflux disease) HTN (hypertension) Pre-diabetes Surgical History History of tonsillectomy TONSILS REMOVED WHEN HE WAS 10 YRS OLD. Family History Other Cancer Heart disease Stroke Social History Smoking Status: Former smoker Tobacco Type: Cigars Smoking End Date: 4 months ago; Second Hand Exposure: Yes; Tobacco Cessation Education Requested by Patient: No Hx Alcohol Use: Yes Alcohol type: hard liquor Alcohol type Comment: 1.5 oz whisky every night Hx Substance Use: No Preferred Language: Maldivian Communication Ability: Effective Clinical Ob Required: No Beliefs That Will Affect Care: None Current Living Situation: Significant Other Other Information That Helps Us Care for You: No Feels Safe at Home: Yes Safety Concerns: Feels Safe At This Time Assistive Devices: Glasses Review of Systems Review of Systems: As per HPI, all other systems reviewed and negative Physical Exam Physical Exam: GENERAL: Comfortable, slightly anxious, obese, pleasant, no respiratory distress SKIN: Pallor, warm HEENT: Bespectacled, pale, palpebral conjunctivae, no ptosis, dry buccal mucosa NECK : Supple, short neck, no tenderness CHEST : Decreased breath sounds, no tenderness HEART : RRR, no obvious murmurs ABDOMEN: Some distention, nontender EXTREMITIES : Minimal RLE swelling with tenderness, no other conspicuous deformities noted NEUROLOGIC : Coherent, no facial asymmetry, no other gross focality Results & Data Results & Data ([facility]) Vital Signs (Past 12 Hours) Vital Signs Temp Pulse Resp BP Pulse Ox O2 Del Method O2 Flow Rate 11/27/21 17:28 92 H 18 95 Room Air 11/27/21 17:28 950 H Room Air 0 11/27/21 16:05 96 Room Air 11/27/21 13:25 37.1 C 87 18 179/88 H 96 Room Air Laboratory Results Laboratory Results WBC 5.43 K/ul (4.8-10.8) 11/27/21 15:30 RBC 4.29 M/uL (4.63-6.08) L 11/27/21 15:30 Hgb 13.5 g/dl (14.0-18.0) L 11/27/21 15:30 Hct 39.3 % (40.1-51.0) L 11/27/21 15:30 MCV 91.6 fL (80.0-100.0) 11/27/21 15:30 MCH 31.5 pg (25.0-34.0) 11/27/21 15:30 MCHC 34.4 g/dL (32.0-36.0) 11/27/21 15:30 RDW Std Deviation 40.9 fL (36.4-46.3) 11/27/21 15:30 RDW Coeff of Jennie 12.3 % (11.5-14.5) 11/27/21 15:30 Plt Count 256 K/uL (130-400) 11/27/21 15:30 MPV 9.5 fL (9.4-12.4) 11/27/21 15:30 Immature Gran % (Auto) 0.4 % 11/27/21 15:30 Neut % (Auto) 85.2 % 11/27/21 15:30 Lymph % (Auto) 11.4 % 11/27/21 15:30 Petroleum % (Auto) 2.2 % 11/27/21 15:30 Eos % (Auto) 0.2 % 11/27/21 15:30 Baso % (Auto) 0.6 % 11/27/21 15:30 Neut # (Auto) 4.63 K/uL (1.4-6.5) 11/27/21 15:30 Lymph # (Auto) 0.62 K/uL (1.2-3.4) L 11/27/21 15:30 Petroleum # (Auto) 0.12 K/uL (0.24-0.82) L 11/27/21 15:30 Eos # (Auto) 0.01 K/uL (0-0.50) 11/27/21 15:30 Baso # (Auto) 0.03 K/uL (0-0.2) 11/27/21 15:30 Immature Gran # (Auto) 0.02 K/uL (0.00-0.02) 11/27/21 15:30 PT 11.2 Seconds (9.0-12.0) 11/27/21 15:30 INR 1.1 (0.9-1.1) 11/27/21 15:30 APTT 29.8 Seconds (21.0-31.0) 11/27/21 15:30 PTT Ratio 1.1 11/27/21 15:30 D-Dimer 530 ug/L FEU (0-500) H* 11/27/21 15:30 Sodium 137 mmol/L (136-145) 11/27/21 15:30 Potassium 3.9 mmol/L (3.5-5.1) 11/27/21 15:30 Chloride 105 mmol/L (98-107) 11/27/21 15:30 Carbon Dioxide 24 mmol/L (21-32) 11/27/21 15:30 Anion Gap 8 (3-11) 11/27/21 15:30 BUN 14 mg/dl (6-23) 11/27/21 15:30 Creatinine 1.01 mg/dl (0.6-1.4) 11/27/21 15:30 Est Cr Clr Drug Dosing 86.6 ml/min 11/27/21 15:30 Est GFR ( Amer) 89.4 ml/min 11/27/21 15:30 Est GFR (Non-Af Amer) 77.1 ml/min 11/27/21 15:30 BUN/Creatinine Ratio 13.9 (10-20) 11/27/21 15:30 Glucose 140 mg/dl (70-99(Fasting)) H 11/27/21 15:30 Calcium 9.4 mg/dl (8.5-10.1) 11/27/21 15:30 Magnesium 2.0 mg/dl (1.7-2.4) 11/27/21 15:30 Total Bilirubin 0.8 mg/dl (0.2-1.0) 11/27/21 15:30 AST 21 U/L (13-39) 11/27/21 15:30 ALT 26 U/L (7-52) 11/27/21 15:30 Alkaline Phosphatase 30 U/L (34-104) L 11/27/21 15:30 Troponin I High Sens 5.2 pg/ml (0-20) 11/27/21 15:30 Total Protein 7.9 gm/dl (6.0-8.3) 11/27/21 15:30 Albumin 4.3 gm/dl (3.4-5.0) 11/27/21 15:30 Globulin 3.6 gm/dl (2.5-4.0) 11/27/21 15:30 Albumin/Globulin Ratio 1.2 (0.9-2) 11/27/21 15:30 SARS-CoV-2 (PCR) POSITIVE (Negative) A* 11/27/21 15:30 Influenza Type A (PCR) Negative (Neg) 11/27/21 15:30 Influenza Type B (PCR) Negative (Neg) 11/27/21 15:30 RSV (RT-PCR) Negative (Neg) 11/27/21 15:30 Impressions Chest X-Ray 11/27/21 15:03 XR chest 1V portable CLINICAL HISTORY: Shortness of breath. COMPARISON STUDY: Chest CT June 13, 2021. Chest radiograph November 25, 2021. FINDINGS: Lung volumes are normal. Lungs are clear. There is no pneumothorax or pleural effusion. Cardiac size is normal. Mediastinal contours are normal. There is no evidence for pulmonary edema. IMPRESSION: No acute cardiopulmonary findings. ACT 112: Negative or not required by law. Electronically signed by: Angelito Park M.D. 11/27/2021 5:06 PM Chest CTA 11/27/21 15:55 CT angio chest PE protocol CT DOSE: 599.95 mGy.cm HISTORY: 66 years-old Male with PE. Acute shortness of breath with chest pressure TECHNIQUE: Multiple CTA images of the chest were obtained after the intravenous administration of 119 ml Optiray. Coronal and sagittal MIPS were obtained from the axial data set and were submitted for review. All measurements were obtained according to NASCET criteria. A dose lowering technique was utilized adhering to the principles of ALARA. COMPARISON: Chest radiograph of same day, CT chest 06/13/2021 FINDINGS: CTA: Mild cardiomegaly. No pericardial effusion. Extensive coronary artery calcifications. No thoracic aortic aneurysm or dissection. There is patency of the imaged great vessels. The segmental and subsegmental pulmonary arterial branches are not well opacified and therefore are difficult to evaluate. Linear filling defect is noted within a segmental branch of the left upper lobe on image 167. CT CHEST: Unremarkable thyroid. No lymphadenopathy. There is no pneumothorax, pleural effusion, airspace consolidation or overt pulmonary edema. Mild biapical pleural-parenchymal scarring. Few nodular densities of the lung apices measure up to 4 mm within the right lung apex on image 244 which appear stable and are likely benign. Mild subsegmental patchy and somewhat nodular groundglass opacities are noted within the right lung base. Subpleural 2.2 cm consolidative density of the right lower lobe on image 106 is suggestive of atelectasis/scarring. 4 mm solid nodule right lower lobe on image 140 is new from the prior study. Mild patchy less apparent opacities of the left lung base. A few nodules in the left lung base measure up to 4 mm within the left lower lobe on image 71. Central airways appear patent. No acute process of the imaged upper abdomen. Hepatic steatosis. Unremarkable soft tissues. Degenerative changes of the shoulders and spine. IMPRESSION: 1. Limited exam secondary to contrast bolus timing and respiratory motion artifact. There is a linear filling defect noted involving a segmental pulmonary arterial branch within the left upper lobe suspicious for pulmonary embolus. Correlation with lower extremity Doppler recommended. 2. Mild patchy groundglass and nodular opacities of the right greater than left lung bases are similar to the prior study and are likely infectious or inflammatory. Solid pulmonary nodules measure up to 4 mm. 3. No pleural effusion or lymphadenopathy. 4. Hepatic steatosis. Please refer to below summary of Fleischner criteria recommendations for follow- up of incidental CT nodules (Theresa Bloom, Guidelines for management of small pulmonary nodules detected on CT scans: A statement from the Fleischner Society, Radiology 237: [phone].) SOLID NODULES Multiple nodules size: <6 mm * Low risk patients: no routine follow-up * high risk patients: optional CT at 12 months Note: newly detected indeterminate nodule in persons 35 years of age or older. * Low risk patients: minimal or absent history of smoking and/or other known risk factors * high risk patients: history of smoking or of other known risk factors (e.g. first degree relative with lung cancer, or exposure to asbestos, radon, uranium) * if a nodule up to 8 mm is partly solid or is ground glass further follow-up is required after 24 months to exclude possible slow growing adenocarcinoma (AUDRA) ACT 112: Negative or not required by law. The above report was generated using voice recognition software. It may contain grammatical, syntax or spelling errors. Electronically signed by: Francisco Martinez M.D. 11/27/2021 5:36 PM Venous Doppler Study 11/27/21 18:36 BILATERAL LOWER EXTREMITY VENOUS DOPPLER HISTORY: Acute pain and swelling of the lower legs eval for dvt COMPARISON STUDY: Doppler study 11/25/2021 FINDINGS: There is normal compressibility, flow, and augmentation within the bilateral lower extremity deep venous systems. Nonspecific right inguinal chain lymph node, 4.1 x 0.9 x 1.8 cm with a normal morphologic appearance. This is likely benign. IMPRESSION: No DVT within the right or left lower extremity. ACT 112: Negative or not required by law. Electronically signed by: Francisco Martinez M.D. 11/27/2021 7:46 PM Diagnostic Findings EKG as per my interpretation rate 80, NSR, normal axis, no ischemia (1) Pulmonary embolism Acute cor pulmonale presence: unspecified Chronicity: acute Pulmonary embolism type: unspecified Qualified Code(s): I26.99 - Other pulmonary embolism without acute cor pulmonale
[2021-11-27] MEDS ORDERED: LACTATED RINGER'S 1,000 ML IV ONE (20:29)
[2021-11-27] MEDS ORDERED: ENOXAPARIN INJ 120 MG/0.8 ML SYR SQ ONE (21:00)
[2021-11-28] MEDS ORDERED: ACETAMINOPHEN 325 MG TAB PO PRN (00:36)
[2021-11-28] MEDS ORDERED: LORazepam 0.5 MG TAB PO PRN (00:36)
[2021-11-28] MEDS ORDERED: traMADol HCL 50 MG TABLET PO PRN (00:36)
[2021-11-28] MEDS ORDERED: PROMETHAZINE HCL 12.5 MG in SODIUM CHLORIDE 0.9% 50 ML IV PRN (00:36)
[2021-11-28] MEDS ORDERED: LEVALBUTEROL TARTRATE 15 GM HFA.AER.AD INH PRN (05:01)
[2021-11-28] MEDS ORDERED: guaiFENesin SUGAR FREE 200 MG/10 ML UDC PO PRN (05:02)
[2021-11-28] MEDS ORDERED: PANTOprazole 40 MG TAB PO SCH (06:30)
[2021-11-28 08:07] LABS: Basophils # (auto) 0.03 K/uL (0-0.2); Basophils % (auto) 0.5 %; Eosinophils # (auto) 0.09 K/uL (0-0.50); Eosinophils % (auto) 1.4 %; Hematocrit (blood only) 37.2 % (40.1-51.0); Hemoglobin 12.3 g/dl (14.0-18.0); Immature Granulocytes # (auto) 0.03 K/uL (0.00-0.02); Immature Granulocytes % (auto) 0.5 %; Lymphocytes # (auto) 1.92 K/uL (1.2-3.4); Lymphocytes % (auto) 30.8 %; Mean Corpuscular Hemoglobin 30.8 pg (25.0-34.0); Mean Corpuscular Hgb Conc 33.1 g/dL (32.0-36.0); Mean Platelet Volume 9.8 fL (9.4-12.4); Monocytes # (auto) 0.71 K/uL (0.24-0.82); Monocytes % (auto) 11.4 %; Neutrophils # (auto) 3.45 K/uL (1.4-6.5); Neutrophils % (auto) 55.4 %; Platelet Count 224 K/uL (130-400); RDW Coefficient of Variation 12.5 % (11.5-14.5); RDW Standard Deviation 42.8 fL (36.4-46.3); White Blood Count 6.23 K/ul (4.8-10.8)
[2021-11-28 08:20] LABS: INR 1.1 (0.9-1.1); Prothrombin Time 11.5 Seconds (9.0-12.0)
[2021-11-28 08:25] LABS: BUN Creatinine Ratio 14.6 (10-20); Calcium 8.8 mg/dl (8.5-10.1); Creatinine Clr Calc Pharmacy 83.7 ml/min; Est GFR (African American) 87.3 ml/min; Est GFR (Non-African American) 75.3 ml/min; Potassium 3.6 mmol/L (3.5-5.1)
[2021-11-28] MEDS ORDERED: ENOXAPARIN INJ 120 MG/0.8 ML SYR SQ SCH (08:30)
[2021-11-28] MEDS ORDERED: lisinopril 10 MG TAB PO SCH (09:00)
--- NOTE | 2021-11-28 15:09 | Discharge Summary ---
Date of Service November 28, 2021 Admission HPI Per Admitting Provider History obtained from patient and records. Medical history significant for hypertension, hyperlipidemia, GERD, prediabetes, chronic anemia (baseline hemoglobin of 13), BPH, past tobacco abuse. Last confinement May 2021 for left thumb cellulitis secondary to cat bite. 3 weeks ago, patient developed chest congestion/cold symptoms. Outpatient COVID-19 test from 11/05 was positive. Sick contacts at home. Transient hemoptysis. Right leg swelling noted. Dry cough symptoms currently. Patient consulted [facility] yesterday for worsening congestion/shortness of breath symptoms with left-sided chest pain. Patient sent to [facility] for blood work, chest x-ray, ultrasound of the right leg. Z-Jluis, Advair inhaler, prednisone course, Flonase prescribed by outpatient provider. Albuterol puff as needed prescribed. Chest x-ray negative for pneumonia. RLE venous Dopplers negative for clot. Patient blood pressure did to be high after first dose of Advair yesterday. He felt his head was swollen. D-dimer noted to be abnormal. Patient directed to [facility] ER tonight by outpatient provider. 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 Admission Exam Per Admitting Provider GENERAL: Comfortable, slightly anxious, obese, pleasant, no respiratory distress SKIN: Pallor, warm HEENT: Bespectacled, pale, palpebral conjunctivae, no ptosis, dry buccal mucosa NECK : Supple, short neck, no tenderness CHEST : Decreased breath sounds, no tenderness HEART : RRR, no obvious murmurs ABDOMEN: Some distention, nontender EXTREMITIES : Minimal RLE swelling with tenderness, no other conspicuous deformities noted NEUROLOGIC : Coherent, no facial asymmetry, no other gross focality Principal Diagnosis Pulmonary embolism x left upper lobe Nodular opacities of right and left lung bases, solid pulmonary nodules measuring up to 4 mm,recommend CT scan chest in 12 months. Discharge Exam GENERAL: Alert and oriented x3. NAD, on RA. HEENT: No pallor, no icterus. Pupils equal, round and reactive to light. Oral mucosa moist. NECK: No JVD, no neck masses. HEART: S1 and S2 heard. Regular rate and rhythm. No murmur, no gallop. RESPIRATORY SYSTEM: Normal AP diameter. No accessory muscle use. No wheezing, no crackles. ABDOMEN: Soft, bowel sounds present, nontender, no distention. CENTRAL NERVOUS SYSTEM: No facial droop. Speech is clear. Obeys simple commands. Moves extremities. EXTREMITIES: No edema, no erythema seen. RLE w/ chronic dermatitis changes Discharge Data Allergies Allergy/AdvReac Type Severity Reaction Status Date / Time Penicillins Allergy Unknown strong Unverified 06/16/21 16:34 family hx of allergy fluticasone AdvReac Intermediate Verified 11/28/21 05:04 [From Advair Diskus] salmeterol AdvReac Intermediate Verified 11/28/21 05:04 [From Advair Diskus] citalopram AdvReac Mild Tachycardia Unverified 06/16/21 16:35 Consultations 11/27/21 18:58 ED Decision to Admit Stat Ordered Studies 11/27/21 15:55 CT angio chest PE protocol Stat 11/27/21 18:36 US venous doppler [facility] Stat Hospital Course (1) Pulmonary embolism: 66-year-old man with PMH of HTN, HLD, GERD, prediabetes, chronic anemia, past tobacco abuse who was directed to the ER because of abnormal D-dimer/acute illness and was found to have pulmonary embolism on CTA chest. Also CT chest was positive for pulmonary nodules, patient will need repeat CT scan of the chest in 12 months. Venous Doppler BLE was negative for DVT. Patient would like to go with Eliquis, cost is dollar 47/month and patient agreeable. Patient to follow-up with PCP for further prescription/discussion on his pulmonary embolism management and pulmonary nodule management. Since patient blood pressure was elevated, his lisinopril dose has been uptitrated upon discharge. Patient to follow-up with his PCP in a week time upon discharge and have the blood work CBC and CMP done in a week time. Patient being discharged home with following instructions at the point of discharge: Follow-up with the primary care physician within 1 week time. You have been diagnosed with pulmonary embolism possibly secondary from recent COVID-19 illness, you are being discharged on Eliquis, take 10 mg Eliquis twice a day for 14 doses then from 15th dose onwards take 5 mg twice a day as discuss ed at the bedside. Follow-up with your primary care physician on continued need for anticoagulation, you will need at least for 3-6 months at this point. Get blood work CBC and CMP done in a week time and have the results forwarded to your primary care physician. Also during hospitalization, CT scan of the chest showed pulmonary nodules measuring up to 4 mm in the lung bases, you will need a repeat CT scan of the chest in 12 months. Start your Eliquis today evening. Take your medications as prescribed. Total Time Total Time Spent Total Time Spent (In Minutes): 40 Discharge Plan Discharge Items Patient Disposition: Home - Self-Care Reason For Visit: PE,(COVID ISO NOT NEEDED - 1ST + TEST WAS 11/06/21) Discharge Diagnosis: Pulmonary embolism x left upper lobe Nodular opacities of right and left lung bases, solid pulmonary nodules measuring up to 4 mm,recommend CT scan chest in 12 months. Activity: Resume your previous activity Non-emergency contact: Primary Care Provider Call non-emergency contact if: you have any medication questions, your symptoms worsen and your temperature is above 101 Follow-up/Referrals: Justin Connor MD [Primary Care Provider] - Diet: Heart Healthy Addtl Attending Provider Instructions: Follow-up with the primary care physician within 1 week time. You have been diagnosed with pulmonary embolism possibly secondary from recent COVID-19 illness, you are being discharged on Eliquis, take 10 mg Eliquis twice a day for 14 doses then from 15th dose onwards take 5 mg twice a day as discussed at the bedside. Follow-up with your primary care physician on continued need for anticoagulation, you will need at least for 3-6 months at this point. Get blood work CBC and CMP done in a week time and have the results forwarded to your primary care physician. Also during hospitalization, CT scan of the chest showed pulmonary nodules m easuring up to 4 mm in the lung bases, you will need a repeat CT scan of the chest in 12 months. Start your Eliquis today evening. Take your medications as prescribed. Pending Studies at Discharge: No Stand-Alone Forms: My Comprehensive Care, Smoking Cessation Medications and DC Order Prescriptions: New Eliquis 5 mg tablet 5 mg PO BID 30 Days Qty: 74 0RF Rx Instructions: 10 mg twice a day for 7 days then 5 mg twice a day. guaifenesin [Mucinex] 600 mg tablet extended release 12hr 600 mg PO BID 7 Days Qty: 14 0RF benzonatate 100 mg capsule 100 mg PO TID 7 Days Qty: 21 0RF Continued albuterol sulfate [Ventolin HFA] 90 mcg/actuation Hfa Aerosol Inhaler 2 puff INHALATION QID PRN (Reason: Shortness Of Breath Or Wheezing) fluticasone propion-salmeterol 250-50 mcg/dose blister with device 1 inh INHALATION BID Rx Instructions: PER PT "USED LAST PM, BECAME DIZZY/SWEATY SEVERAL TIMES. DON'T THINK I WILL BE USING AGAIN". omeprazole 20 mg capsule,delayed release(DR/EC) 20 mg PO DAILYBB mupirocin 2 % ointment 1 applic TOPICAL TID Rx Instructions: STARTED 11/25/21 FOR 14 DAYS. betamethasone dipropionate 0.05 % ointment 1 applic TOPICAL BID Rx Instructions: START AFTER MUPIROCIN CREAM. fluticasone propionate 50 mcg/actuation spray,suspension 2 spray INTRANASAL DAILY Changed lisinopril 5 mg tablet 10 mg PO QAM Qty: 60 0RF Discontinued azithromycin 250 mg tablet 250 mg PO DAILY Rx Instructions: STARTED 11/26/21 FOR 5 DAYS. prednisone 20 mg tablet 40 mg PO DAILY Rx Instructions: STARTED 11/25/21 FOR 5 DAYS. Discharge Orders: Discharge Order (Routine); Ordered 11/28/21 Ordered By: Blade Nielsen Admission Data Admit Date/Time: 11/27/21 20:26 Attending Provider: Blade Nielsen Admit Provider: Garry Xavier Primary Care Provider: Justin Connor Other Providers: Garry aXvier
[2021-11-28] MEDS ORDERED: BETAMETHASONE DIP AUG (DIPROLENE) 0.05% CR 15 GM TUBE EXT PRN (16:00)
[2021-11-28] MEDS ORDERED: PETROLATUM TOP SCH (21:00)
[2021-11-28] MEDS ORDERED: [UNRECOGNIZED DRUG - OTHER] TOP SCH (21:00)
== END 2021-11-28 17:20 | disposition home or self-care (01) | DRG 177 ==
LOC: ED 13:19 → 2W 20:26
DX: Z79.899 Other long term (current) drug therapy; R73.03 Prediabetes; M79.89 Other specified soft tissue disorders; R91.8 Other nonspecific abnormal finding of lung field; U07.1 COVID-19; I10 Essential (primary) hypertension; K21.9 Gastro-esophageal reflux disease without esophagitis; M79.604 Pain in right leg; Z88.0 Allergy status to penicillin; I26.99 Other pulmonary embolism without acute cor pulmonale; Z87.891 Personal history of nicotine dependence; D64.9 Anemia, unspecified; Z88.8 Allergy status to other drugs, medicaments and biological substances

== ENCOUNTER 2022-11-26 15:23 | Observation (INO) ==
--- NOTE | 2022-11-26 17:21 | XRay Report ---
SINGLE VIEW CHEST CLINICAL HISTORY: Generalized weakness. FINDINGS: An AP, portable, upright chest radiograph is compared to chest x-ray and chest CT dated 11/27. The heart is mildly enlarged. The pulmonary vasculature is noncongested. There is mild bibasil ar atelectasis. The lungs and pleural spaces are otherwise clear. No pneumothorax is seen. The bony t horax is grossly intact. Mild arthritic change is seen in the shoulders and spine. IMPRESSION: No active disease in the chest. ACT 112: Negative or not required by law. Electronically signed by: Casper Robertson M.D. 11/26/2022 5:19 PM
[2022-11-26 17:42] LABS: Basophils # (auto) 0.05 K/uL (0-0.2); Basophils % (auto) 0.9 %; Eosinophils # (auto) 0.09 K/uL (0-0.50); Eosinophils % (auto) 1.6 %; Hemoglobin 13.1 g/dl (14.0-18.0); Immature Granulocytes # (auto) 0.01 K/uL (0.01-0.20); Immature Granulocytes % (auto) 0.2 %; Lymphocytes # (auto) 1.52 K/uL (1.2-3.4); Lymphocytes % (auto) 27.2 %; Mean Corpuscular Hgb Conc 33.6 g/dL (32.0-36.0); Mean Corpuscular Volume 92.2 fL (80.0-100.0); Mean Platelet Volume 9.8 fL (9.4-12.4); Monocytes # (auto) 0.58 K/uL (0.11-0.59); Monocytes % (auto) 10.4 %; Neutrophils # (auto) 3.34 K/uL (1.40-6.50); Neutrophils % (auto) 59.7 %; Platelet Count 232 K/uL (130-400); RDW Coefficient of Variation 12.5 % (11.5-14.5); RDW Standard Deviation 42.4 fL (36.4-46.3); Red Blood Count 4.23 M/uL (4.70-6.10); White Blood Count 5.59 K/ul (4.8-10.8)
[2022-11-26 17:51] LABS: Albumin Globulin Ratio 1.3 (0.9-2); Albumin Level 4.4 gm/dl (3.4-5.0); BUN Creatinine Ratio 11.4 (10-20); Bilirubin,Total 0.6 mg/dl (0.2-1.0); Calcium 9.9 mg/dl (8.6-10.3); Creatinine Clr Calc Pharmacy 81.7 ml/min; Est GFR (African American) 84.7 ml/min; Est GFR (Non-African American) 73.1 ml/min; Globulin 3.4 gm/dl (2.5-4.0); Potassium 4.1 mmol/L (3.5-5.1); Total Protein 7.8 gm/dl (6.0-8.3)
[2022-11-26] MEDS ORDERED: SODIUM CHLORIDE 0.9% 1000ML 1,000 ML IV ONE (17:51)
--- NOTE | 2022-11-26 17:54 | Emergency Department Note ---
Impression & Plan Vertigo, Ataxia, Weakness ED Provider Note NAME: RANDEE BIGGS AGE: 67 SEX: M ARRIVES VIA: Ambulance INFORMANT: Patient ED PROVIDER(S): Quan Arrington MD CHIEF COMPLAINT: Vertigo, ataxia, referred PLAN: Disposition: Admit MEDICAL DECISION MAKING: The patient is a pleasant 67-year-old gentleman with a past medical history of hypertension, hyperlipidemia, alcohol use, history of PE no longer on anticoagulation as it occurred in the setting of a COVID-19 infection who presents to the emergency department via EMS for evaluation of worsening vertigo over the past month and development of ataxia and imbalance where he was seen at his doctor's office today and referred to emergency department for evaluation. Patient reports symptoms occur in the setting of having ongoing vertigo for over a year after having COVID-19 but was not particularly frequent as it has over the past month which he correlates to having suspected tick bite a month ago but did get tested and this was negative for Lyme. Patient denies any fevers, chills, cough, congestion, GI/ symptoms. On my evaluation the patient is fatigued appearing but no distress, afebrile blood pressure 170s/80s and vital signs otherwise stable. He appears clinically dry. He exhibits mild ataxia with [id number]. He exhibits generalized weakness without focal weakness of extremities with 4+/5 strength. Reflexes are within normal limits and there is no clonus bilaterally. EKG without overt acute ischemia. CXR negative for acute cardiopulmonary process. WBC and platelets within normal limits. H/H similar to prior range values. Chemistry without metabolic acidosis. Electrolytes LFTs without significant abnormality. LFTs unremarkable. Initial high-sensitivity troponin 15, nonspe cific. TSH within normal limits. Anaplasma and Babesia smear were negative with DNA testing pending. Lyme screen was negative. CT of the head and CT of the head neck were performed and were negative for acute abnormalities. Given the degree of the patient's symptoms impairing his ability to function he did agree with plan for admission for further management. Case was discussed with Dr. Xavier, [facility] hospitalist who will evaluate the patient for admission. Triage Nursing notes reviewed and agree them. Prior/outside medical records reviewed Vital Signs: reviewed Differential diagnosis: Benign positional vertigo, dehydration, hypovolemia, anemia, tumor, infection, hypoglycemia, electrolyte abnormalities, cardiac sources, intracerebral event, toxicologic, neurologic, as well as other pathologies. ER treatment provided: See below. Diagnostics interpreted by me: ECG: NSR, 66 bpm, no ectopy, no overt ST elevation or depression. Cardiac Monitoring: An order for continuous cardiac monitoring was placed and demonstrated normal sinus rhythm, 66 bpm, no ectopy Laboratory studies: See below Imaging studies: See below Consultation(s): [facility] for [facility]. HPI: The patient is a pleasant 67-year-old gentleman with a past medical history of hypertension, hyperlipidemia, alcohol use, history of PE no longer on anticoagulation as it occurred in the setting of a COVID-19 infection who presents to the emergency department via EMS for evaluation of worsening vertigo over the past month and development of ataxia and imbalance where he was seen at his doctor's office today and referred to emergency department for evaluation. Patient reports symptoms occur in the setting of having ongoing vertigo for over a year after having COVID-19 but was not particularly frequent as it has over the past month which he correlates to having suspected tick bite a month ago but did get tested and this was negative for Lyme. Patient denies any fevers, chills, cough, congestion, GI/ symptoms. ROS: See above HPI for pertinent positives & negatives. A total of 10 systems reviewed and were otherwise negative. VITALS:See Below PHYSICAL EXAMINATION: GENERAL: Awake, alert, fatigued-appearing, in no distress HENT: Normocephalic, atraumatic. Oropharynx with dry mucous membranes and otherwise unremarkable. EYES: Normal conjunctiva. Sclera non-icteric. EOMI. No nystamgus. PEARRL. NECK: Supple. No nuchal rigidity. FROM. No JVD. RESPIRATORY: Clear to auscultation. CARDIAC: Regular rate, normal rhythm. Extremities warm and well perfused. Pulses equal. ABDOMEN: Soft, non-distended. No tenderness to palpation. No rebound or guarding. No masses. RECTAL: Deferred. MUSCULOSKELETAL: Chest examination reveals no tenderness. The back is symmetrical on inspection without obvious abnormality. There is no CVA tenderness to palpation. No joint edema. LOWER EXTREMITIES: Calves are equal size bilaterally and non-tender. No edema. No discoloration. NEURO: No focal sensory or motor deficits noted. 4+/5 strength and SILT x 4 extremities. Reflexes are within normal limits and there is no clonus. SKIN: No rash or jaundice noted. Quan Arrington MD Past Med/Surg History Medical History Alcohol use Asthma Dyslipidemia GERD (gastroesophageal reflux disease) HTN (hypertension) Pre-diabetes Surgical History History of tonsillectomy TONSILS REMOVED WHEN HE WAS 10 YRS OLD. Family History Other Cancer Heart disease Stroke Social History Smoking Status: Current some day smoker Tobacco Type: Cigarettes Cigarettes Per Day: 2 per month; Second Hand Exposure: Yes; Do You Dip or Chew Tobacco: No; Hx Alcohol Use: Yes Alcohol type: hard liquor Alcohol type Comment: 1.5 oz whisky every night Hx Substance Use: No Preferred Language: Kiswahili Communication Ability: Effective Tube Bender Required: No Beliefs That Will Affect Care: None Current Living Situation: Significant Other Current Living Situation Comment: lives w/ girlfriend Other Information That Helps Us Care for You: No Feels Safe at Home: Yes Safety Concerns: Feels Safe At This Time Assistive Devices: Cane and Glasses Allergies Allergies Allergy/AdvReac Type Severity Reaction Status Date / Time Penicillins Allergy Unknown strong Unverified 06/16/21 16:34 family hx of allergy fluticasone AdvReac Intermediate Verified 11/28/21 05:04 [From Advair Diskus] salmeterol AdvReac Intermediate Verified 11/28/21 05:04 [From Advair Diskus] citalopram AdvReac Mild Tachycardia Unverified 06/16/21 16:35 Home Meds Home Medications Medication Instructions Recorded Confirmed albuterol sulfate 90 mcg/actuation 2 puff inhalation QID PRN 06/13/21 11/26/22 aerosol inhaler (Ventolin HFA) Shortness Of Breath Or Wheezing betamethasone dipropionate 0.05 % 1 applic topical BID 11/27/21 11/26/22 topical ointment lisinopril 10 mg tablet 10 mg PO QAM 11/26/22 11/26/22 nortriptyline 50 mg capsule 50 mg PO HS 11/26/22 11/26/22 pravastatin 20 mg tablet 20 mg PO DAILY 11/26/22 11/26/22 rosuvastatin 10 mg tablet 10 mg PO HS 11/26/22 11/26/22 trazodone 50 mg tablet 50 mg PO 11/26/22 11/26/22 Results & Data (ED) Vital Signs Vital Signs - 24 hr 11/26/22 15:40 11/26/22 15:39 11/26/22 19:00 Temperature 36.4 C L Temperature Source Oral Pulse Rate 79 69 63 Pulse Rhythm Regular Pulse Strength Normal Respiratory Rate 18 16 Respiratory Effort / Characteristics Non-Labored Spontaneous Respiratory Depth Normal Respiratory Pattern Regular Blood Pressure 179/82 H Blood Pressure Mean 114 Blood Pressure Position Lying Pulse Oximetry 98 94 Oxygen Delivery Method Room Air Room Air Sepsis Recent Fever Within 48 Hours No Sepsis New/Unexplained Change in Mental Status No Sepsis Action Taken by Nursing No Action Required 11/26/22 19:24 11/26/22 19:30 11/26/22 20:00 Temperature Temperature Source Pulse Rate 62 57 L 55 L Pulse Rhythm Pulse Strength Respiratory Rate 22 15 16 Respiratory Effort / Characteristics Respiratory Depth Respiratory Pattern Blood Pressure 170/84 H 153/81 H 155/65 H Blood Pressure Mean 112 105 95 Blood Pressure Position Pulse Oximetry 96 95 96 Oxygen Delivery Method Room Air Room Air Room Air Sepsis Recent Fever Within 48 Hours Sepsis New/Unexplained Change in Mental Status Sepsis Action Taken by Nursing 11/26/22 19:51 11/26/22 20:30 11/26/22 21:01 Temperature Temperature Source Pulse Rate 59 L 63 71 Pulse Rhythm Pulse Strength Respiratory Rate 14 18 Respiratory Effort / Characteristics Respiratory Depth Respiratory Pattern Blood Pressure 149/76 H 144/88 H Blood Pressure Mean 100 106 Blood Pressure Position Pulse Oximetry Oxygen Delivery Method Sepsis Recent Fever Within 48 Hours Sepsis New/Unexplained Change in Mental Status Sepsis Action Taken by Nursing Laboratory Data Attestation: I reviewed the patient's lab results. 11/26/22 16:00 11/26/22 16:00 Lab Results 11/26/22 11/26/22 11/26/22 Range/Units 16:00 16:00 16:00 WBC 5.59 (4.8-10.8) K/ul RBC 4.23 L (4.70-6.10) M/uL Hgb 13.1 L (14.0-18.0) g/dl Hct 39.0 L (42.0-52.0) % MCV 92.2 (80.0-100.0) fL MCH 31.0 (25.0-34.0) pg MCHC 33.6 (32.0-36.0) g/dL RDW Std Deviation 42.4 (36.4-46.3) fL RDW Coeff of Jennie 12.5 (11.5-14.5) % Plt Count 232 (130-400) K/uL MPV 9.8 (9.4-12.4) fL Immature Gran % (Auto) 0.2 % Neut % (Auto) 59.7 % Lymph % (Auto) 27.2 % [place] % (Auto) 10.4 % Eos % (Auto) 1.6 % Baso % (Auto) 0.9 % Neut # (Auto) 3.34 (1.40-6.50) K/uL Lymph # (Auto) 1.52 (1.2-3.4) K/uL [place] # (Auto) 0.58 (0.11-0.59) K/uL Eos # (Auto) 0.09 (0-0.50) K/uL Baso # (Auto) 0.05 (0-0.2) K/uL Immature Gran # (Auto) 0.01 (0.01-0.20) K/uL ESR (0-20) mm/hr PT 11.1 (9.0-12.0) Seconds INR 1.0 (0.9-1.1) APTT 29.6 (21.0-31.0) Seconds PTT Ratio 1.0 Sodium 140 (136-145) mmol/L Potassium 4.1 (3.5-5.1) mmol/L Chloride 107 (98-107) mmol/L Carbon Dioxide 27 (21-32) mmol/L Anion Gap 6 (3-11) BUN 12 (6-23) mg/dl Creatinine 1.05 (0.6-1.4) mg/dl Est Cr Clr Drug Dosing 81.7 ml/min Est GFR ( Amer) 84.7 ml/min Est GFR (Non-Af Amer) 73.1 ml/min BUN/Creatinine Ratio 11.4 (10-20) Glucose 102 H (70-99(Fasting)) mg/dl Calcium 9.9 (8.6-10.3) mg/dl Phosphorus 3.4 (2.5-4.9) mg/dl Magnesium 2.1 (1.7-2.4) mg/dl Total Bilirubin 0.6 (0.2-1.0) mg/dl AST 23 (13-39) U/L ALT 25 (7-52) U/L Alkaline Phosphatase 29 L (34-104) U/L Troponin I High Sens 15.8 (0-20) pg/ml Total Protein 7.8 (6.0-8.3) gm/dl Albumin 4.4 (3.4-5.0) gm/dl Globulin 3.4 (2.5-4.0) gm/dl Albumin/Globulin Ratio 1.3 (0.9-2) TSH (0.300-4.500) uIu/ml Anaplasma Smear Babesia Smear Lyme Disease IgG Ab (Negative) Lyme Disease IgM Ab (Negative) 11/26/22 11/26/22 11/26/22 Range/Units 18:14 18:15 18:15 WBC (4.8-10.8) K/ul RBC (4.70-6.10) M/uL Hgb (14.0-18.0) g/dl Hct (42.0-52.0) % MCV (80.0-100.0) fL MCH (25.0-34.0) pg MCHC (32.0-36.0) g/dL RDW Std Deviation (36.4-46.3) fL RDW Coeff of Jennie (11.5-14.5) % Plt Count (130-400) K/uL MPV (9.4-12.4) fL Immature Gran % (Auto) % Neut % (Auto) % Lymph % (Auto) % [place] % (Auto) % Eos % (Auto) % Baso % (Auto) % Neut # (Auto) (1.40-6.50) K/uL Lymph # (Auto) (1.2-3.4) K/uL [place] # (Auto) (0.11-0.59) K/uL Eos # (Auto) (0-0.50) K/uL Baso # (Auto) (0-0.2) K/uL Immature Gran # (Auto) (0.01-0.20) K/uL ESR (0-20) mm/hr PT (9.0-12.0) Seconds INR (0.9-1.1) APTT (21.0-31.0) Seconds PTT Ratio Sodium (136-145) mmol/L Potassium (3.5-5.1) mmol/L Chloride (98-107) mmol/L Carbon Dioxide (21-32) mmol/L Anion Gap (3-11) BUN (6-23) mg/dl Creatinine (0.6-1.4) mg/dl Est Cr Clr Drug Dosing ml/min Est GFR ( Amer) ml/min Est GFR (Non-Af Amer) ml/min BUN/Creatinine Ratio (10-20) Glucose (70-99(Fasting)) mg/dl Calcium (8.6-10.3) mg/dl Phosphorus (2.5-4.9) mg/dl Magnesium (1.7-2.4) mg/dl Total Bilirubin (0.2-1.0) mg/dl AST (13-39) U/L ALT (7-52) U/L Alkaline Phosphatase (34-104) U/L Troponin I High Sens (0-20) pg/ml Total Protein (6.0-8.3) gm/dl Albumin (3.4-5.0) gm/dl Globulin (2.5-4.0) gm/dl Albumin/Globulin Ratio (0.9-2) TSH 2.048 (0.300-4.500) uIu/ml Anaplasma Smear See Comment Babesia Smear See Comment Lyme Disease IgG Ab Negative (Negative) Lyme Disease IgM Ab Negative (Negative) 11/26/22 Range/Units 18:15 WBC (4.8-10.8) K/ul RBC (4.70-6.10) M/uL Hgb (14.0-18.0) g/dl Hct (42.0-52.0) % MCV (80.0-100.0) fL MCH (25.0-34.0) pg MCHC (32.0-36.0) g/dL RDW Std Deviation (36.4-46.3) fL RDW Coeff of Jennie (11.5-14.5) % Plt Count (130-400) K/uL MPV (9.4-12.4) fL Immature Gran % (Auto) % Neut % (Auto) % Lymph % (Auto) % [place] % (Auto) % Eos % (Auto) % Baso % (Auto) % Neut # (Auto) (1.40-6.50) K/uL Lymph # (Auto) (1.2-3.4) K/uL [place] # (Auto) (0.11-0.59) K/uL Eos # (Auto) (0-0.50) K/uL Baso # (Auto) (0-0.2) K/uL Immature Gran # (Auto) (0.01-0.20) K/uL ESR 23 H (0-20) mm/hr PT (9.0-12.0) Seconds INR (0.9-1.1) APTT (21.0-31.0) Seconds PTT Ratio Sodium (136-145) mmol/L Potassium (3.5-5.1) mmol/L Chloride (98-107) mmol/L Carbon Dioxide (21-32) mmol/L Anion Gap (3-11) BUN (6-23) mg/dl Creatinine (0.6-1.4) mg/dl Est Cr Clr Drug Dosing ml/min Est GFR ( Amer) ml/min Est GFR (Non-Af Amer) ml/min BUN/Creatinine Ratio (10-20) Glucose (70-99(Fasting)) mg/dl Calcium (8.6-10.3) mg/dl Phosphorus (2.5-4.9) mg/dl Magnesium (1.7-2.4) mg/dl Total Bilirubin (0.2-1.0) mg/dl AST (13-39) U/L ALT (7-52) U/L Alkaline Phosphatase (34-104) U/L Troponin I High Sens (0-20) pg/ml Total Protein (6.0-8.3) gm/dl Albumin (3.4-5.0) gm/dl Globulin (2.5-4.0) gm/dl Albumin/Globulin Ratio (0.9-2) TSH (0.300-4.500) uIu/ml Anaplasma Smear Babesia Smear Lyme Disease IgG Ab (Negative) Lyme Disease IgM Ab (Negative) Administered Medications Albuterol (Albut/Ipratrop 3mg/0.5mg Neb 3 Ml Vial) 3 ml NEB Q2H PRN; Protocol PRN Reason: Wheezing Stop: 12/26/22 21:26 Last Admin: 11/26/22 23:04 Dose: 3 ml Documented By: ALONSO Nortriptyline HCl (Nortriptyline Hcl 25 Mg Cap) 50 mg PO HS [facility] Stop: 12/27/22 01:06 Last Admin: 11/27/22 02:08 Dose: Not Given Documented By: CLAU Rosuvastatin Calcium (Rosuvastatin Calcium 10 Mg Tab) 10 mg PO HS [facility] Stop: 12/27/22 01:06 Last Admin: 11/27/22 02:08 Dose: 10 mg Documented By: CLAU Trazodone HCl (Trazodone Hcl 50 Mg Tab) 50 mg PO [facility] Stop: 12/27/22 01:06 Last Admin: 11/27/22 02:08 Dose: Not Given Documented By: CLAU Discontinued Medications Clopidogrel Bisulfate (Clopidogrel Bisulfate 75 Mg Tab) 75 mg PO NOW ONE Stop: 11/26/22 21:20 Last Admin: 11/26/22 21:58 Dose: 75 mg Documented By: ALONSO Gadobutrol (Gadobutrol 65ml Vial) 10 ml IV ONCE ONE Stop: 11/27/22 00:20 Last Admin: 11/27/22 00:19 Dose: 10 ml Documented By: JEFFREY Sodium Chloride (Nss 1000ml) 1,000 mls @ 999 mls/hr IV .Q1H1M ONE Stop: 11/26/22 18:51 Last Infusion: 11/26/22 20:30 Dose: 0 mls/hr Documented By: Admin: 11/26/22 19:25 Dose: 999 mls/hr Documented By: ALONSO Ioversol (Ioversol 350 Mg 125ml Prefilled Syringe) 119 ml IV ONCE ONE Stop: 11/26/22 18:43 Last Admin: 11/26/22 18:43 Dose: 119 ml Documented By: JAJA Imaging Data Radiologist's Impression: Chest X-Ray 11/26/22 17:08 SINGLE VIEW CHEST CLINICAL HISTORY: Generalized weakness. FINDINGS: An AP, portable, upright chest radiograph is compared to chest x-ray and chest CT dated 11/27/2021. The heart is mildly enlarged. The pulmonary vasculature is noncongested. There is mild bibasilar atelectasis. The lungs and pleural spaces are otherwise clear. No pneumothorax is seen. The bony thorax is grossly intact. Mild arthritic change is seen in the shoulders and spine. IMPRESSION: No active disease in the chest. ACT 112: Negative or not required by law. Electronically signed by: Casper Robertson M.D. 11/26/2022 5:[address] 11/26/22 17:[address] OF THE BRAIN; CT ANGIOGRAM OF THE BRAIN; CT ANGIOGRAM OF THE NECK CLINICAL HISTORY: Vertigo. Dizziness. COMPARISON STUDY: No priors. TECHNIQUE: Unenhanced axial CT scan of the brain is performed. Subsequently, following the IV administration of 119 of Optiray 350, CT angiogram of the head and neck was performed from the aortic arch to the vertex. Images are reviewed in the axial, sagittal, and coronal planes. 3-D MIPS images are created and assessed. IV contrast was administered without complication. All measurements were calculated based on NASCET criteria. A dose lowering technique was utilized adhering to the principles of ALARA. CT DOSE: 1110.55 mGy.cm FINDINGS: Brain parenchyma: There is age-related involutional change noting mild subcortical and periventricular microangiopathic disease. There is no hemorrhage, mass effect, or evidence of acute territorial ischemia by CT criteria. There is no evidence of enhancing mass lesion on the angiogram phase images. The ventricles, sulci, and cisterns are prominent secondary to involutional change. Ambrocio-white matter differentiation is preserved. No extra- axial fluid collection is seen. Thoracic aorta: Visualized portions of the thoracic aorta are normal in caliber. The aortic arch demonstrates standard 3-vessel anatomy. Right carotid arterial system: The right common carotid artery is widely patent, as are the internal and external carotid arteries. Calcified plaque causes less than 50% luminal narrowing at the origin of the internal carotid artery. Left carotid arterial system: The left common carotid artery is widely patent, as are the left internal and external carotid arteries. Calcified plaque is noted in the carotid bulb. Vertebral arteries: The vertebral arteries are widely patent bilaterally and codominant. Subclavian arteries: Widely patent bilaterally. Intracranial vasculature: There is atherosclerotic calcification of the cavernous carotid and vertebral arteries. The internal carotid arteries are patent at the skull base, as are the anterior and middle cerebral arteries bilaterally. The vertebrobasilar system and posterior cerebral arteries are widely patent. The vertebral arteries are codominant. There is a small left posterior communicating artery. There is no aneurysm, high-grade stenosis, or focal vessel cut off seen throughout the intracranial circulation. Jugular veins: Patent bilaterally. Dural sinuses: Patent. Lung apices: Partially visualized upper lobe lung parenchyma appears clear. Soft tissues: The visualized pharyngeal soft tissues are normal in appearance noting angiographic phase technique. The oropharyngeal airway appears widely patent. The salivary and thyroid glands are normal in appearance. No cervical l ymphadenopathy is seen. Skeletal structures: The calvarium appears intact. The cervical spine is maintained noting multilevel spondylosis. Orbits: The bony orbits are intact. Orbital contents are normal as visualized. Sinuses and mastoids: The paranasal sinuses are clear. The mastoid air cells are well pneumatized. IMPRESSION: 1. There is no hemorrhage, mass effect, or evidence of acute territorial ischemia by CT criteria. 2. Unremarkable CT angiogram of the brain. 3. Unremarkable CT angiogram of the neck. ACT 112: Negative or not required by law. Electronically signed by: Casper Robertson M.D. 11/26/2022 6:56 PM Head CTA 11/26/22 17:[address] OF THE BRAIN; CT ANGIOGRAM OF THE BRAIN; CT ANGIOGRAM OF THE NECK CLINICAL HISTORY: Vertigo. Dizziness. COMPARISON STUDY: No priors. TECHNIQUE: Unenhanced axial CT scan of the brain is performed. Subsequently, following the IV administration of 119 of Optiray 350, CT angiogram of the head and neck was performed from the aortic arch to the vertex. Images are reviewed in the axial, sagittal, and coronal planes. 3-D MIPS images are created and assessed. IV contrast was administered without complication. All measurements were calculated based on NASCET criteria. A dose lowering technique was utilized adhering to the principles of ALARA. CT DOSE: 1110.55 mGy.cm FINDINGS: Brain parenchyma: There is age-related involutional change noting mild subcortical and periventricular microangiopathic disease. There is no h emorrhage, mass effect, or evidence of acute territorial ischemia by CT criteria. There is no evidence of enhancing mass lesion on the angiogram phase images. The ventricles, sulci, and cisterns are prominent secondary to involutional change. Ambrocio-white matter differentiation is preserved. No extra- axial fluid collection is seen. Thoracic aorta: Visualized portions of the thoracic aorta are normal in caliber. The aortic arch demonstrates standard 3-vessel anatomy. Right carotid arterial system: The right common carotid artery is widely patent, as are the internal and external carotid arteries. Calcified plaque causes less than 50% luminal narrowing at the origin of the internal carotid artery. Left carotid arterial system: The left common carotid artery is widely patent, as are the left internal and external carotid arteries. Calcified plaque is noted in the carotid bulb. Vertebral arteries: The vertebral arteries are widely patent bilaterally and codominant. Subclavian arteries: Widely patent bilaterally. Intracranial vasculature: There is atherosclerotic calcification of the cavernous carotid and vertebral arteries. The internal carotid arteries are patent at the skull base, as are the anterior and middle cerebral arteries bilaterally. The vertebrobasilar system and posterior cerebral arteries are widely patent. The vertebral arteries are codominant. There is a small left posterior communicating artery. There is no aneurysm, high-grade stenosis, or focal vessel cut off seen throughout the intracranial circulation. Jugular veins: Patent bilaterally. Dural sinuses: Patent. Lung apices: Partially visualized upper lobe lung parenchyma appears clear. Soft tissues: The visualized pharyngeal soft tissues are normal in appearance noting angiographic phase technique. The oropharyngeal airway appears widely patent. The salivary and thyroid glands are normal in appearance. No cervical lymphadenopathy is seen. Skeletal structures: The calvarium appears intact. The cervical spine is maintai fabiano noting multilevel spondylosis. Orbits: The bony orbits are intact. Orbital contents are normal as visualized. Sinuses and mastoids: The paranasal sinuses are clear. The mastoid air cells are well pneumatized. IMPRESSION: 1. There is no hemorrhage, mass effect, or evidence of acute territorial ischemia by CT criteria. 2. Unremarkable CT angiogram of the brain. 3. Unremarkable CT angiogram of the neck. ACT 112: Negative or not required by law. Electronically signed by: Casper Robertson M.D. 11/26/2022 6:56 PM Neck CTA 11/26/22 17:[address] OF THE BRAIN; CT ANGIOGRAM OF THE BRAIN; CT ANGIOGRAM OF THE NECK CLINICAL HISTORY: Vertigo. Dizziness. COMPARISON STUDY: No priors. TECHNIQUE: Unenhanced axial CT scan of the brain is performed. Subsequently, following the IV administration of 119 of Optiray 350, CT angiogram of the head and neck was performed from the aortic arch to the vertex. Images are reviewed in the axial, sagittal, and coronal planes. 3-D MIPS images are created and assessed. IV contrast was administered without complication. All measurements were calculated based on NASCET criteria. A dose lowering technique was utilized adhering to the principles of ALARA. CT DOSE: 1110.55 mGy.cm FINDINGS: Brain parenchyma: There is age-related involutional change noting mild s ubcortical and periventricular microangiopathic disease. There is no hemorrhage, mass effect, or evidence of acute territorial ischemia by CT criteria. There is no evidence of enhancing mass lesion on the angiogram phase images. The ventricles, sulci, and cisterns are prominent secondary to involutional change. Ambrocio-white matter differentiation is preserved. No extra-axial fluid collection is seen. Thoracic aorta: Visualized portions of the thoracic aorta are normal in caliber. The aortic arch demonstrates standard 3-vessel anatomy. Right carotid arterial system: The right common carotid artery is widely patent, as are the internal and external carotid arteries. Calcified plaque causes less than 50% luminal narrowing at the origin of the internal carotid artery. Left carotid arterial system: The left common carotid artery is widely patent, as are the left internal and external carotid arteries. Calcified plaque is noted in the carotid bulb. Vertebral arteries: The vertebral arteries are widely patent bilaterally and codominant. Subclavian arteries: Widely patent bilaterally. Intracranial vasculature: There is atherosclerotic calcification of the cavernous carotid and vertebral arteries. The internal carotid arteries are donovan nt at the skull base, as are the anterior and middle cerebral arteries bilaterally. The vertebrobasilar system and posterior cerebral arteries are widely patent. The vertebral arteries are codominant. There is a small left posterior communicating artery. There is no aneurysm, high-grade stenosis, or focal vessel cut off seen throughout the intracranial circulation. Jugular veins: Patent bilaterally. Dural sinuses: Patent. Lung apices: Partially visualized upper lobe lung parenchyma appears clear. Soft tissues: The visualized pharyngeal soft tissues are normal in appearance noting angiographic phase technique. The oropharyngeal airway appears widely patent. The salivary and thyroid glands are normal in appearance. No cervical lymphadenopathy is seen. Skeletal structures: The calvarium appears intact. The cervical spine is maintained noting multilevel spondylosis. Orbits: The bony orbits are intact. Orbital contents are normal as visualized. Sinuses and mastoids: The paranasal sinuses are clear. The mastoid air cells are well pneumatized. IMPRESSION: 1. There is no hemorrhage, mass effect, or evidence of acute territorial ischemia by CT criteria. 2. Unremarkable CT angiogram of the brain. 3. Unremarkable CT angiogram of the neck. ACT 112: Negative or not required by law. Electronically signed by: Casper Robertson M.D. 11/26/2022 6:56 PM Discharge Plan Visit Data Chief Complaint: Weakness Stated Complaint: WEAKNESS ED Provider: Quan Arrington Discharge Problem: Vertigo, Ataxia, Weakness Patient Disposition: Admitted As Inpatient Discharge Instructions Interventions: ED Discharge Assessment Last Done: 11/27/22 00:46
[2022-11-26 18:09] LABS: Partial Thromboplastin Time 29.6 Seconds (21.0-31.0); Prothrombin Time 11.1 Seconds (9.0-12.0)
[2022-11-26 18:35] LABS: Magnesium 2.1 mg/dl (1.7-2.4); Phosphorus 3.4 mg/dl (2.5-4.9)
[2022-11-26 18:41] LABS: Troponin I High Sensitivity 15.8 pg/ml (0-20)
[2022-11-26] MEDS ORDERED: IOVERSOL 350 MG 125mL Prefilled Syringe IV ONE (18:42)
--- NOTE | 2022-11-26 18:58 | CT Scan Report ---
UNENHANCED CT OF THE BRAIN; CT ANGIOGRAM OF THE BRAIN; CT ANGIOGRAM OF THE NECK CLINICAL HISTORY: Vertigo. Dizziness. COMPARISON STUDY: No priors. TECHNIQUE: Unenhanced axial CT scan of the brain is performed. Subsequently, following the IV adminis tration of 119 of [address] 350, CT angiogram of the head and neck was performed from the aortic arch t o the vertex. Images are reviewed in the axial, sagittal, and coronal planes. 3-D MIPS images are cre ated and assessed. IV contrast was administered without complication. All measurements were calculate d based on NASCET criteria. A dose lowering technique was utilized adhering to the principles of ALA RA. 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 There is no hemorrhage, mass effect, or evidence of acute territorial isc hemia by CT criteria. There is no evidence of enhancing mass lesion on the angiogram phase images. Th e ventricles, sulci, and cisterns are prominent secondary to involutional change. Ambrocio-white matter d ifferentiation is preserved. No extra-axial fluid collection is seen. Thoracic aorta: Visualized portions of the thoracic aorta are normal in caliber. The aortic arch demo nstrates standard 3-vessel anatomy. Right carotid arterial system: The right common carotid artery is widely patent, as are the internal and external carotid arteries. Calcified plaque causes less than 50% luminal narrowing at the origin of the internal carotid artery. Left carotid arterial system: The left common carotid artery is widely patent, as are the left customer experience intern al and external carotid arteries. Calcified plaque is noted in the carotid bulb. Vertebral arteries: The vertebral arteries are widely patent bilaterally and codominant. Subclavian arteries: Widely patent bilaterally. Intracranial vasculature: There is atherosclerotic calcification of the cavernous carotid and vertebr al arteries. The internal carotid arteries are patent at the skull base, as are the anterior and midd le cerebral arteries bilaterally. The vertebrobasilar system and posterior cerebral arteries are wide ly patent. The vertebral arteries are codominant. There is a small left posterior communicating arter y. There is no aneurysm, high-grade stenosis, or focal vessel cut off seen throughout the intracrania l circulation. Jugular veins: Patent bilaterally. Dural sinuses: Patent. Lung apices: Partially visualized upper lobe lung parenchyma appears clear. Soft tissues: The visualized pharyngeal soft tissues are normal in appearance noting angiographic pha se technique. The oropharyngeal airway appears widely patent. The salivary and thyroid glands are nor mal in appearance. No cervical lymphadenopathy is seen. Skeletal structures: The calvarium appears intact. The cervical spine is maintained noting multilevel spondylosis. Orbits: The bony orbits are intact. Orbital contents are normal as visualized. Sinuses and mastoids: The paranasal sinuses are clear. The mastoid air cells are well pneumatized. IMPRESSION: 1. There is no hemorrhage, mass effect, or evidence of acute territorial ischemia by CT criteria. 2. Unremarkable CT angiogram of the brain. 3. Unremarkable CT angiogram of the neck. ACT 112: Negative or not required by law. Electronically signed by: Casper Robertson M.D. 11/26/2022 6:56 PM
[2022-11-26 19:42] LABS: Lyme Ab IgG w/WB Rflx Negative (Negative); Lyme Ab IgM w/WB Rflx Negative (Negative)
[2022-11-26] MEDS ORDERED: CLOPIDOGREL BISULFATE 75 MG TAB PO ONE (21:19)
--- NOTE | 2022-11-26 21:19 | History & Physical Report ---
Date of Service November 26, 2022 Assessment & Plan (1) Weakness: Plan: Bilateral upper extremity/lower extremity weakness RUE numbness Vertigo and gait imbalance symptoms ? CVA (? aspirin failure) rule out tickborne infection given history hypertension, troponin elevation, elevated secondary to illness history of diastolic dysfunction patient euvolemic to dry hyperlipidemia on statin Rx bronchial asthma not in acute exacerbation history of PE status post anticoagulation pulmonary nodules on CT imaging last year GERD, stable on regimen prediabetes, hemoglobin A1c of 6.28 Aug 2022 chronic anemia, hemoglobin at baseline past cigar use Medical telemetry Neurochecks Plavix for possible aspirin failure Permissive hypertension until acute stroke ruled out. MR I brain, TTE for stroke work-up Follow tickborne testing Neurology consult if tickborne test negative given multiple neurologic complaints. PT OT eval DVT prophylaxis. Lovenox Full code Text document was generated using [employer] voice recognition software. It may contain grammatical or spelling errors. Kindly contact undersigned for clarification of any documentation item in question. History of Present Illness Chief Complaint: Worsening arms, legs weakness, vertigo, RUE numbness. Primary Care Provider: Justin Connor MD History obtained from patient and records. Medical history significant for history of diastolic dysfunction (EF 60%, stress echo 2022), hypertension, hyperlipidemia, bronchial asthma, history of PE status post anticoagulation, pulmonary nodules, GERD, prediabetes, chronic anemia (baseline hemoglobin of 13), BPH, past tobacco abuse. Last confinement November 2021 pulmonary embolism attributed to COVID-19 illness. Patient discharged on Eliquis course. Patient has had intermittent vertigo symptoms since caren COVID-19 illness about 2 years ago. 2 months ago, patient noted worsening of vertigo symptoms described as room spinning, unsteadiness of the feet, tingling numbness on the upper extremities. Tick bites noted prior to worsening symptoms. Patient seen at PCP's office last month. CT head without acute abnormality. Outpatient Lyme screen negative. No antibiotic Rx given. Symptoms attributed to vertigo. Outpatient PT eval recommended. Worsening symptoms noted over the last week. Patient dropping objects. Both arms and legs weaker than usual. Transient headache symptoms. Right upper extremity may be numb. Admits to daily OTC aspirin intake. Funny chest sensation without unusual SOB symptoms. Patient directed to ER after being seen at PCPs office today. 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 Allergies Allergy/AdvReac Type Severity Reaction Status Date / Time Penicillins Allergy Unknown strong Unverified 06/16/21 16:34 family hx of allergy fluticasone AdvReac Intermediate Verified 11/28/21 05:04 [From Advair Diskus] salmeterol AdvReac Intermediate Verified 11/28/21 05:04 [From Advair Diskus] citalopram AdvReac Mild Tachycardia Unverified 06/16/21 16:35 Home Medications Medication Instructions Recorded Confirmed Type albuterol sulfate 90 mcg/actuation 2 puff inhalation QID PRN 06/13/21 11/26/22 History aerosol inhaler (Ventolin HFA) Shortness Of Breath Or Wheezing betamethasone dipropionate 0.05 % 1 applic topical BID 11/27/21 11/26/22 History topical ointment lisinopril 10 mg tablet 10 mg PO QAM 11/26/22 11/26/22 History nortriptyline 50 mg capsule 50 mg PO HS 11/26/22 11/26/22 History pravastatin 20 mg tablet 20 mg PO DAILY 11/26/22 11/26/22 History rosuvastatin 10 mg tablet 10 mg PO HS 11/26/22 11/26/22 History trazodone 50 mg tablet 50 mg PO HS 11/26/22 11/26/22 History aspirin 81 mg PO DAILY 11/27/22 11/27/22 History Past Med/Surg History Medical History Alcohol use Asthma Dyslipidemia GERD (gastroesophageal reflux disease) HTN (hypertension) Pre-diabetes Surgical History History of tonsillectomy TONSILS REMOVED WHEN HE WAS 10 YRS OLD. 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 Beliefs That Will Affect Care: None Current Living Situation: Significant Other Current Living Situation Comment: lives w/ girlfriend Other Information That Helps Us Care for You: No Feels Safe at Home: Yes Safety Concerns: Feels Safe At This Time Assistive Devices: Cane and Glasses Review of Systems Review of Systems: As per HPI, all other systems reviewed and negative Physical Exam Physical Exam: GENERAL: anxious, obese, pleasant, no respiratory distress SKIN: Pallor, warm HEENT: Bespectacled, pale palpebral conjunctivae, no ptosis, dry buccal mucosa NECK : Supple, short neck, no tenderness CHEST : Decreased breath sounds, no tenderness HEART : RRR, no obvious murmurs ABDOMEN: Some distention, nontender EXTREMITIES : Minimal LE swelling without tenderness, no other conspicuous deformities noted NEUROLOGIC : Coherent, no facial asymmetry, MMTS BUE 4/5, BLE 3/5, negative pronator drift; able to do alternating pronation supination hand motions, [id number] test, [id number]-[id number] test without difficulty albeit slowly, gait and stance not assessed Results & Data Results & Data Vital Signs (Past 12 Hours) Vital Signs Temp Pulse Resp BP Pulse Ox O2 Del Method 11/26/22 20:30 63 14 149/76 H 11/26/22 19:51 59 L 11/26/22 20:00 55 L 16 155/65 H 96 Room Air 11/26/22 19:30 57 L 15 153/81 H 95 Room Air 11/26/22 19:24 62 22 170/84 H 96 Room Air 11/26/22 19:00 63 16 94 Room Air 11/26/22 15:39 69 11/26/22 15:40 36.4 C L 79 18 179/82 H 98 Room Air Laboratory Results Laboratory Results WBC 5.59 K/ul (4.8-10.8) 11/26/22 16:00 RBC 4.23 M/uL (4.70-6.10) L 11/26/22 16:00 Hgb 13.1 g/dl (14.0-18.0) L 11/26/22 16:00 Hct 39.0 % (42.0-52.0) L 11/26/22 16:00 MCV 92.2 fL (80.0-100.0) 11/26/22 16:00 MCH 31.0 pg (25.0-34.0) 11/26/22 16:00 MCHC 33.6 g/dL (32.0-36.0) 11/26/22 16:00 RDW Std Deviation 42.4 fL (36.4-46.3) 11/26/22 16:00 RDW Coeff of Jennie 12.5 % (11.5-14.5) 11/26/22 16:00 Plt Count 232 K/uL (130-400) 11/26/22 16:00 MPV 9.8 fL (9.4-12.4) 11/26/22 16:00 Immature Gran % (Auto) 0.2 % 11/26/22 16:00 Neut % (Auto) 59.7 % 11/26/22 16:00 Lymph % (Auto) 27.2 % 11/26/22 16:00 [place] % (Auto) 10.4 % 11/26/22 16:00 Eos % (Auto) 1.6 % 11/26/22 16:00 Baso % (Auto) 0.9 % 11/26/22 16:00 Neut # (Auto) 3.34 K/uL (1.40-6.50) 11/26/22 16:00 Lymph # (Auto) 1.52 K/uL (1.2-3.4) 11/26/22 16:00 [place] # (Auto) 0.58 K/uL (0.11-0.59) 11/26/22 16:00 Eos # (Auto) 0.09 K/uL (0-0.50) 11/26/22 16:00 Baso # (Auto) 0.05 K/uL (0-0.2) 11/26/22 16:00 Immature Gran # (Auto) 0.01 K/uL (0.01-0.20) 11/26/22 16:00 PT 11.1 Seconds (9.0-12.0) 11/26/22 16:00 INR 1.0 (0.9-1.1) 11/26/22 16:00 APTT 29.6 Seconds (21.0-31.0) 11/26/22 16:00 PTT Ratio 1.0 11/26/22 16:00 Sodium 140 mmol/L (136-145) 11/26/22 16:00 Potassium 4.1 mmol/L (3.5-5.1) 11/26/22 16:00 Chloride 107 mmol/L (98-107) 11/26/22 16:00 Carbon Dioxide 27 mmol/L (21-32) 11/26/22 16:00 Anion Gap 6 (3-11) 11/26/22 16:00 BUN 12 mg/dl (6-23) 11/26/22 16:00 Creatinine 1.05 mg/dl (0.6-1.4) 11/26/22 16:00 Est Cr Clr Drug Dosing 81.7 ml/min 11/26/22 16:00 Est GFR ( Amer) 84.7 ml/min 11/26/22 16:00 Est GFR (Non-Af Amer) 73.1 ml/min 11/26/22 16:00 BUN/Creatinine Ratio 11.4 (10-20) 11/26/22 16:00 Glucose 102 mg/dl (70-99(Fasting)) H 11/26/22 16:00 Calcium 9.9 mg/dl (8.6-10.3) 11/26/22 16:00 Phosphorus 3.4 mg/dl (2.5-4.9) 11/26/22 16:00 Magnesium 2.1 mg/dl (1.7-2.4) 11/26/22 16:00 Total Bilirubin 0.6 mg/dl (0.2-1.0) 11/26/22 16:00 AST 23 U/L (13-39) 11/26/22 16:00 ALT 25 U/L (7-52) 11/26/22 16:00 Alkaline Phosphatase 29 U/L (34-104) L 11/26/22 16:00 Troponin I High Sens 15.8 pg/ml (0-20) 11/26/22 16:00 Total Protein 7.8 gm/dl (6.0-8.3) 11/26/22 16:00 Albumin 4.4 gm/dl (3.4-5.0) 11/26/22 16:00 Globulin 3.4 gm/dl (2.5-4.0) 11/26/22 16:00 Albumin/Globulin Ratio 1.3 (0.9-2) 11/26/22 16:00 TSH 2.048 uIu/ml (0.300-4.500) 11/26/22 18:15 Anaplasma Smear See Comment 11/26/22 18:15 Babesia Smear See Comment 11/26/22 18:15 Lyme Disease IgG Ab Negative (Negative) 11/26/22 18:14 Lyme Disease IgM Ab Negative (Negative) 11/26/22 18:14 Impressions Chest X-Ray 11/26/22 17:08 SINGLE VIEW CHEST CLINICAL HISTORY: Generalized weakness. FINDINGS: An AP, portable, upright chest radiograph is compared to chest x-ray and chest CT dated 11/27/2021. The heart is mildly enlarged. The pulmonary vasculature is noncongested. There is mild bibasilar atelectasis. The lungs and pleural spaces are otherwise clear. No pneumothorax is seen. The bony thorax is grossly intact. Mild arthritic change is seen in the shoulders and spine. IMPRESSION: No active disease in the chest. ACT 112: Negative or not required by law. Electronically signed by: Casper Robertson M.D. 11/26/2022 5:[address] 11/26/22 17:[address] OF THE BRAIN; CT ANGIOGRAM OF THE BRAIN; CT ANGIOGRAM OF THE NECK CLINICAL HISTORY: Vertigo. Dizziness. COMPARISON STUDY: No priors. TECHNIQUE: Unenhanced axial CT scan of the brain is performed. Subsequently, following the IV administration of 119 of Optiray 350, CT angiogram of the head and neck was performed from the aortic arch to the vertex. Images are reviewed in the axial, sagittal, and coronal planes. 3-D MIPS images are created and assessed. IV contrast was administered without complication. All measurements were calculated based on NASCET criteria. A dose lowering technique was utilized adhering to the principles of ALARA. CT DOSE: 1110.55 mGy.cm FINDINGS: Brain parenchyma: There is age-related involutional change noting mild subcortic al and periventricular microangiopathic disease. There is no hemorrhage, mass effect, or evidence of acute territorial ischemia by CT criteria. There is no evidence of enhancing mass lesion on the angiogram phase images. The ventricles, sulci, and cisterns are prominent secondary to involutional change. Ambrocio-white matter differentiation is preserved. No extra-axial fluid collection is seen. Thoracic aorta: Visualized portions of the thoracic aorta are normal in caliber. The aortic arch demonstrates standard 3-vessel anatomy. Right carotid arterial system: The right common carotid artery is widely patent, as are the internal and external carotid arteries. Calcified plaque causes less than 50% luminal narrowing at the origin of the internal carotid artery. Left carotid arterial system: The left common carotid artery is widely patent, as are the left internal and external carotid arteries. Calcified plaque is noted in the carotid bulb. Vertebral arteries: The vertebral arteries are widely patent bilaterally and codominant. Subclavian arteries: Widely patent bilaterally. Intracranial vasculature: There is atherosclerotic calcification of the cavernous carotid and vertebral arteries. The internal carotid arteries are patent at the skull base, as are the anterior and middle cerebral arteries bilaterally. The vertebrobasilar system and posterior cerebral arteries are widely patent. The vertebral arteries are codominant. There is a small left posterior communicating artery. There is no aneurysm, high-grade stenosis, or focal vessel cut off seen throughout the intracranial circulation. Jugular veins: Patent bilaterally. Dural sinuses: Patent. Lung apices: Partially visualized upper lobe lung parenchyma appears clear. Soft tissues: The visualized pharyngeal soft tissues are normal in appearance noting angiographic phase technique. The oropharyngeal airway appears widely patent. The salivary and thyroid glands are normal in appearance. No cervical lymphadenopathy is seen. Skeletal structures: The calvarium appears intact. The cervical spine is maintained noting multilevel spondylosis. Orbits: The bony orbits are intact. Orbital contents are normal as visualized. Sinuses and mastoids: The paranasal sinuses are clear. The mastoid air cells are well pneumatized. IMPRESSION: 1. There is no hemorrhage, mass effect, or evidence of acute territorial ischemia by CT criteria. 2. Unremarkable CT angiogram of the brain. 3. Unremarkable CT angiogram of the neck. ACT 112: Negative or not required by law. Electronically signed by: Casper Robertson M.D. 11/26/2022 6:56 PM Head CTA 11/26/22 17:[address] OF THE BRAIN; CT ANGIOGRAM OF THE BRAIN; CT ANGIOGRAM OF THE NECK CLINICAL HISTORY: Vertigo. Dizziness. COMPARISON STUDY: No priors. TECHNIQUE: Unenhanced axial CT scan of the brain is performed. Subsequently, following the IV administration of 119 of Optiray 350, CT angiogram of the head and neck was performed from the aortic arch to the vertex. Images are reviewed in the axial, sagittal, and coronal planes. 3-D MIPS images are created and assessed. IV contrast was administered without complication. All measurements were calculated based on NASCET criteria. A dose lowering technique was utilized adhering to the principles of ALARA. CT DOSE: 1110.55 mGy.cm FINDINGS: Brain parenchyma: There is age-related involutional change noting mild subcortical and periventricular microangiopathic disease. There is no hemorrhage, mass effect, or evidence of acute territorial ischemia by CT criteria. There is no evidence of enhancing mass lesion on the angiogram phase images. The ventricles, sulci, and cisterns are prominent secondary to involutional change. Ambrocio-white matter differentiation is preserved. No extra- axial fluid collection is seen. Thoracic aorta: Visualized portions of the thoracic aorta are normal in caliber. The aortic arch demonstrates standard 3-vessel anatomy. Right carotid arterial system: The right common carotid artery is widely patent, as are the internal and external carotid arteries. Calcified plaque causes less than 50% luminal narrowing at the origin of the internal carotid artery. Left carotid arterial system: The left common carotid artery is widely patent, as are the left internal and external carotid arteries. Calcified plaque is noted in the carotid bulb. Vertebral arteries: The vertebral arteries are widely patent bilaterally and codominant. Subclavian arteries: Widely patent bilaterally. Intracranial vasculature: There is atherosclerotic calcification of the cavernous carotid and vertebral arteries. The internal carotid arteries are patent at the skull base, as are the anterior and middle cerebral arteries bilaterally. The vertebrobasilar system and posterior cerebral arteries are widely patent. The vertebral arteries are codominant. There is a small left posterior communicating artery. There is no aneurysm, high-grade stenosis, or focal vessel cut off seen throughout the intracranial circulation. Jugular veins: Patent bilaterally. Dural sinuses: Patent. Lung apices: Partially visualized upper lobe lung parenchyma appears clear. Soft tissues: The visualized pharyngeal soft tissues are normal in appearance noting angiographic phase technique. The oropharyngeal airway appears widely patent. The salivary and thyroid glands are normal in appearance. No cervical lymphadenopathy is seen. Skeletal structures: The calvarium appears intact. The cervical spine is maintained noting multilevel spondylosis. Orbits: The bony orbits are intact. Orbital contents are normal as visualized. Sinuses and mastoids: The paranasal sinuses are clear. The mastoid air cells are well pneumatized. IMPRESSION: 1. There is no hemorrhage, mass effect, or evidence of acute territorial ischemia by CT criteria. 2. Unremarkable CT angiogram of the brain. 3. Unremarkable CT angiogram of the neck. ACT 112: Negative or not required by law. Electronically signed by: Casper Robertson M.D. 11/26/2022 6:56 PM Neck CTA 11/26/22 17:[address] OF THE BRAIN; CT ANGIOGRAM OF THE BRAIN; CT ANGIOGRAM OF THE NECK CLINICAL HISTORY: Vertigo. Dizziness. COMPARISON STUDY: No priors. TECHNIQUE: Unenhanced axial CT scan of the brain is performed. Subsequently, fo llowing the IV administration of 119 of Optiray 350, CT angiogram of the head and neck was performed from the aortic arch to the vertex. Images are reviewed in the axial, sagittal, and coronal planes. 3-D MIPS images are created and assessed. IV contrast was administered without complication. All measurements were calculated based on NASCET criteria. A dose lowering technique was utilized adhering to the principles of ALARA. CT DOSE: 1110.55 mGy.cm FINDINGS: Brain parenchyma: There is age-related involutional change noting mild subcortical and periventricular microangiopathic disease. There is no hemorrhage, mass effect, or evidence of acute territorial ischemia by CT criteria. There is no evidence of enhancing mass lesion on the angiogram phase images. The ventricles, sulci, and cisterns are prominent secondary to involutional change. Ambrocio-white matter differentiation is preserved. No extra- axial fluid collection is seen. Thoracic aorta: Visualized portions of the thoracic aorta are normal in caliber. The aortic arch demonstrates standard 3-vessel anatomy. Right carotid arterial system: The right common carotid artery is widely patent, as are the internal and external carotid arteries. Calcified plaque causes less than 50% luminal narrowing at the origin of the internal carotid artery. Left carotid arterial system: The left common carotid artery is widely patent, as are the left internal and external carotid arteries. Calcified plaque is noted in the carotid bulb. Vertebral arteries: The vertebral arteries are widely patent bilaterally and codominant. Subclavian arteries: Widely patent bilaterally. Intracranial vasculature: There is atherosclerotic calcification of the cavernous carotid and vertebral arteries. The internal carotid arteries are patent at the skull base, as are the anterior and middle cerebral arteries bilaterally. The vertebrobasilar system and posterior cerebral arteries are widely patent. The vertebral arteries are codominant. There is a small left posterior communicating artery. There is no aneurysm, high-grade stenosis, or focal vessel cut off seen throughout the intracranial circulation. Jugular veins: Patent bilaterally. Dural sinuses: Patent. Lung apices: Partially visualized upper lobe lung parenchyma appears clear. Soft tissues: The visualized pharyngeal soft tissues are normal in appearance noting angiographic phase technique. The oropharyngeal airway appears widely patent. The salivary and thyroid glands are normal in appearance. No cervical lymphadenopathy is seen. Skeletal structures: The calvarium appears intact. The cervical spine is maintained noting multilevel spondylosis. Orbits: The bony orbits are intact. Orbital contents are normal as visualized. Sinuses and mastoids: The paranasal sinuses are clear. The mastoid air cells are well pneumatized. IMPRESSION: 1. There is no hemorrhage, mass effect, or evidence of acute territorial ischemia by CT criteria. 2. Unremarkable CT angiogram of the brain. 3. Unremarkable CT angiogram of the neck. ACT 112: Negative or not required by law. Electronically signed by: Casper Robertson M.D. 11/26/2022 6:56 PM Diagnostic Findings EKG as per my interpretation : Rate 65, NSR, normal axis, T wave abnormalities inferior leads
[2022-11-26] MEDS ORDERED: PROMETHAZINE HCL 12.5 MG in SODIUM CHLORIDE 0.9% 50 ML IV PRN (21:27)
[2022-11-26] MEDS ORDERED: oxyCODONE HCL IR 5 MG TAB (IMMEDIATE RELEASE) PO PRN (21:27)
[2022-11-26] MEDS ORDERED: LORazepam 0.5 MG TAB PO PRN (21:27)
[2022-11-26 22:16] LABS: C Reactive Protein < 0.50 mg/dl (0-0.5)
[2022-11-26 22:23] LABS: Troponin I High Sensitivity 20.8 pg/ml (0-20)
[2022-11-26] MEDS: ALBUT/IPRATROP 3MG/0.5MG NEB 3 ML VIAL NEB PRN (23:04)
--- NOTE | 2022-11-26 23:28 | XRay Report ---
BONY ORBITS 3 VIEWS CLINICAL HISTORY: MRI clearance. FINDINGS: 3 views of the bony orbits are obtained. No prior studies are available for comparison at t he time of dictation. There is no radiodense/metallic foreign body seen in the region of the bony orb its. The bony orbits are intact as imaged. The visualized paranasal sinuses and the mastoid air cells appear clear. The imaged calvarium appears intact. IMPRESSION: There is no radiodense/metallic foreign body seen in the region of the bony orbits. ACT 112: Negative or not required by law. Electronically signed by: Casper Robertson M.D. 11/26/2022 11:27 PM
[2022-11-27] MEDS ORDERED: GADOBUTROL 65ML VIAL IV ONE (00:19)
--- NOTE | 2022-11-27 00:54 | Magnetic Resonance Report ---
Exam(s): MRI HEAD W/WO Contrast IV Amt: 10cc gadavist EXAM: MR Head Without and With Intravenous Contrast CLINICAL HISTORY: Reason for exam: anders,weakness, numbness. TECHNIQUE: Magnetic resonance images of the head/brain without and with intravenous contrast in multiple planes. CONTRAST: Patient received 10cc gadavist of IV contrast COMPARISON: Comparison made to prior noncontrast head CT from November 26, 2022. FINDINGS: Brain: Mild to moderate nonspecific white matter changes. The flow voids at the base of the brain are intact. No mass. No hemorrhage. No acute infarct. No evidence of abnormal enhancement. The dural venous sinuses are patent. Ventricles: Moderate ventriculomegaly. Bones/joints: Unremarkable. Sinuses: Chronic ethmoid sinusitis.. No acute sinusitis. Mastoid air cells: Unremarkable as visualized. No mastoid effusion. Orbits: Unremarkable as visualized. IMPRESSION: No evidence of acute intracranial pathology. Mild to moderate nonspecific white matter changes. Electronically signed by: Aretha Hardwick MD 11/27/22 00:53 AM
[2022-11-27] MEDS ORDERED: ALBUT/IPRATROP 3MG/0.5MG NEB 3 ML VIAL NEB PRN (01:07)
[2022-11-27] MEDS ORDERED: ACETAMINOPHEN 325 MG TAB PO PRN (01:07)
[2022-11-27] MEDS: traZODone HCL 50 MG TAB PO SCH ×2 (02:08→21:17)
[2022-11-27] MEDS: NORTRIPTYLINE HCL 25 MG CAP PO SCH ×2 (02:08→21:17)
[2022-11-27] MEDS: ROSUVASTATIN CALCIUM 10 MG TAB PO SCH ×2 (02:08→21:17)
[2022-11-27 06:11] LABS: Basophils # (auto) 0.05 K/uL (0-0.2); Basophils % (auto) 1.1 %; Eosinophils # (auto) 0.11 K/uL (0-0.50); Eosinophils % (auto) 2.4 %; Hematocrit (blood only) 37.1 % (42.0-52.0); Hemoglobin 12.6 g/dl (14.0-18.0); Immature Granulocytes # (auto) 0.01 K/uL (0.01-0.20); Immature Granulocytes % (auto) 0.2 %; Lymphocytes # (auto) 1.54 K/uL (1.2-3.4); Lymphocytes % (auto) 33.8 %; Mean Corpuscular Hemoglobin 31.2 pg (25.0-34.0); Mean Corpuscular Volume 91.8 fL (80.0-100.0); Mean Platelet Volume 9.5 fL (9.4-12.4); Monocytes # (auto) 0.48 K/uL (0.11-0.59); Monocytes % (auto) 10.5 %; Neutrophils # (auto) 2.37 K/uL (1.40-6.50); Platelet Count 201 K/uL (130-400); RDW Coefficient of Variation 12.5 % (11.5-14.5); RDW Standard Deviation 42.6 fL (36.4-46.3); Red Blood Count 4.04 M/uL (4.70-6.10); White Blood Count 4.56 K/ul (4.8-10.8)
[2022-11-27 06:16] LABS: Calcium 9.1 mg/dl (8.6-10.3); Creatinine Clr Calc Pharmacy 84.7 ml/min; Est GFR (African American) 89.9 ml/min; Est GFR (Non-African American) 77.5 ml/min; Potassium 3.9 mmol/L (3.5-5.1)
[2022-11-27 07:30] LABS: Estimated Average Glucose 131 mg/dl; Hemoglobin A1C 6.2 % (4.5-5.6)
[2022-11-27] MEDS: ENOXAPARIN INJ 40 MG/0.4 ML SYR SQ SCH (08:21)
[2022-11-27] MEDS: ASPIRIN 81 MG ECTAB PO SCH (08:21)
[2022-11-27] MEDS ORDERED: CLOPIDOGREL BISULFATE 75 MG TAB PO SCH (09:00)
[2022-11-27 10:23] LABS: Troponin I High Sensitivity 17.9 pg/ml (0-20)
--- NOTE | 2022-11-27 14:42 | Hospitalist Progress Note ---
Date of Service November 27, 2022 Assessment & Plan (1) Weakness: Plan: Vertigo with balance issues B/L Finger Numbness Ambulatory dysfunction secondary to above H/O Tick bite/COVID 19 infection --Lyme Screen Negative -- Anaplasma, Babesia DNA pending -MRI Brain:No evidence of acute intracranial pathology. Mild to moderate nonspecific white matter changes. -Head/Neck CTA:There is no hemorrhage, mass effect, or evidence of acute territorial ischemia by CT criteria. Unremarkable CT angiogram of the brain. Unremarkable CT angiogram of the neck. -ECHO: Normal left ventricle wall thickness. Left ventricle wall motion is normal. EF 60 to 65%. Right ventricle normal size and function. Aortic valve sclerosis mild, without significant aortic valve stenosis. Grade 1 diastolic dysfunction. -Vitamin B12 levels pending -Vertigo improved with Trish's previously -May need EMG as outpatient PT OT consulted for Trish's Check orthostatics Monitor on telemetry Consider neurology evaluation if needed Fall precautions May need ENT eval as outpatient Prediabetes HbA1C:6.2 Other Chronic Conditions: Hypertension H/O Diastolic dysfunction Hyperlipidemia Mood disorder Continue home meds Bronchial asthma No signs of exacerbation H/O PE S/P anticoagulation Pulmonary nodules on CT imaging last year Follow up as outpatient DVT Px: Lovenox SQ Code Status Full code Admission and Anticipated Discharge Date Admission Date: November 26, 2022 Subjective Patient is seen and examined at bedside States having bilateral finger and toes numbness Also reports ongoing worsening vertigo associated with balance issues with ambulation Denies any chest pain, dyspnea, dizziness, nausea, vomiting, abdominal pain Review of Systems Review of Systems: All systems reviewed & are unremarkable except as noted in Subjective Physical Exam Physical Exam: Physical Exam: Vitals signs as noted above General Appearance:Moderately built and nourished, no apparent distress Head: normocephalic, Atraumatic Eyes: normal inspection, EOMI Neck: supple, Trachea midline Respiratory/Chest: Decreased breath sounds, CTA, No accessory muscle use Cardiovascular: S1, S2, No murmur Abdomen/GI:Soft, Non tender, Bowel sounds present Extremities/Musculoskeletal:normal inspection, no edema Neurologic/Psych:AAOX3, B/L UE 3-4/5, B/L LE 4/5, speech clear Skin: normal color, warm Results & Data Results & Data Vital Signs (Past 12 Hours) Vital Signs Temp Pulse Pulse Resp BP Pulse Ox O2 Del Method 11/27/22 08:25 Room Air 11/27/22 11:53 36.6 C 57 L 16 142/63 H 96 Room Air 11/27/22 08:10 36.7 C 56 L 18 158/72 H 96 Room Air 11/27/22 07:48 54 L Laboratory Results Short CBC 11/26/22 11/27/22 Range/Units 16:00 05:31 WBC 5.59 4.56 L (4.8-10.8) K/ul Hgb 13.1 L 12.6 L (14.0-18.0) g/dl Hct 39.0 L 37.1 L (42.0-52.0) % Plt Count 232 201 (130-400) K/uL BMP 11/26/22 11/27/22 16:00 05:31 Sodium 140 140 Potassium 4.1 3.9 Chloride 107 108 H Carbon Dioxide 27 26 BUN 12 12 Creatinine 1.05 1.00 Glucose 102 H 103 H Calcium 9.9 9.1 Cardiac Enzymes 11/27/22 Range/Units 12:25 Total Creatine Kinase 219 (30-223) U/L Liver Function 11/26/22 Range/Units 16:00 Total Bilirubin 0.6 (0.2-1.0) mg/dl AST 23 (13-39) U/L ALT 25 (7-52) U/L Alkaline Phosphatase 29 L (34-104) U/L Albumin 4.4 (3.4-5.0) gm/dl
[2022-11-27] MEDS ORDERED: POLYETHYLENE (MIRALAX) 17 GM PACK PO PRN (17:03)
[2022-11-27] MEDS: DOCUSATE SODIUM 100 MG CAP PO SCH (21:17)
--- NOTE | 2022-11-28 06:21 | Electrocardiogram Report ---
Test Reason : Blood Pressure : / mmHG Vent. Rate : 066 BPM Atrial Rate : 066 BPM P-R Int : 196 ms QRS Dur : 100 ms QT Int : 422 ms P-R-T Axes : 025 010 027 degrees QTc Int : 442 ms Normal sinus rhythm Normal ECG When compared with ECG of 27-NOV-2021 15:06, No significant change was found Confirmed by Xavier Bailey ([id number]) on 11/28/2022 6:21:47 AM Referred By: REFERRED SELF Confirmed By:Xavier Bailey
[2022-11-28 06:40] LABS: Basophils # (auto) 0.05 K/uL (0-0.2); Basophils % (auto) 1.1 %; Eosinophils # (auto) 0.19 K/uL (0-0.50); Eosinophils % (auto) 4.2 %; Hematocrit (blood only) 37.9 % (42.0-52.0); Hemoglobin 12.9 g/dl (14.0-18.0); Immature Granulocytes # (auto) 0.01 K/uL (0.01-0.20); Immature Granulocytes % (auto) 0.2 %; Lymphocytes # (auto) 1.21 K/uL (1.2-3.4); Lymphocytes % (auto) 26.8 %; Mean Corpuscular Hemoglobin 30.9 pg (25.0-34.0); Mean Corpuscular Volume 90.9 fL (80.0-100.0); Mean Platelet Volume 9.6 fL (9.4-12.4); Monocytes # (auto) 0.46 K/uL (0.11-0.59); Monocytes % (auto) 10.2 %; Neutrophils % (auto) 57.5 %; Platelet Count 198 K/uL (130-400); RDW Coefficient of Variation 12.6 % (11.5-14.5); RDW Standard Deviation 41.7 fL (36.4-46.3); Red Blood Count 4.17 M/uL (4.70-6.10); White Blood Count 4.52 K/ul (4.8-10.8)
[2022-11-28 06:52] LABS: BUN Creatinine Ratio 12.1 (10-20); Creatinine Clr Calc Pharmacy 85.4 ml/min; Est GFR (Non-African American) 78.5 ml/min; Potassium 3.9 mmol/L (3.5-5.1)
[2022-11-28] MEDS: ENOXAPARIN INJ 40 MG/0.4 ML SYR SQ SCH (08:13)
[2022-11-28] MEDS: DOCUSATE SODIUM 100 MG CAP PO SCH (08:13)
[2022-11-28] MEDS: ASPIRIN 81 MG ECTAB PO SCH (08:13)
[2022-11-28] MEDS ORDERED: CYANOCOBALAMIN 1000 MCG/ML VIAL IM SCH (09:00)
--- NOTE | 2022-11-28 10:43 | Neurology Consultation ---
Date of Consultation November 28, 2022 Assessment & Plan (1) Weakness: (2) Numbness and tingling: (3) Ataxia: (4) B12 deficiency: (5) Vertigo: Plan patient has a subacute onset of generalized weakness, numbness and tingling distally in the hands and feet and gait disturbance. He is not overly ataxic with his gait although I do see some imbalance. The limbs do not have ataxia individually. The patient has had extensive laboratory and imaging testing, which has been unremarkable except for a low B12 and mild to moderate old small vessel ischemic disease on MRI. B12 deficiency can give neuropathy, gait disturbance (much like this patient displays) as well as cognitive issues ( which she does not have ). Other etiologies of neuropathy need to be considered. He does not have any evidence of central nervous system issues otherwise. The patient has had vertigo intermittently since April of 2019 ( Covid-19 infection). This is been a little bit worse recently but is relatively chronic and unrelated to the B12 deficiency most likely. Recommendations: 1. 1000 mcg B12 IM weekly for 1 month. After that once a month for 6 months. 2. He can take a multiple vitamin with B12 also 3. EMG nerve conduction studies, as an outpatient, to be done as soon as we can. We will study the right arm and right leg for neuropathy, radiculopathy, and myopathy. 4. additional recommendations will be made after the EMG. Overall, I spent a total of 75 minutes with this case including review of records, review of CT and MRI films, direct evaluation the patient at bedside, the port generation, and discussion of the case with the patient at bedside and doctor Parks, including differential diagnosis and treatment options. History of Present Illness Reason for Consultation: patient is a 67-year-old, who I was asked to see at the request of Dr. Huggins, for neurologic consultation regarding vertigo, weakness, and ataxia. Requesting Physician: Dr Huggins Attending Physician: Juventino Parks MD History of Present Illness This patient has a history of hypertension, dyslipidemia, and history of heavy alcohol use in the past. His not had any alcohol since starting trazodone earlier this year. In April of 2019 he had a Covid-19 infection which left him with intermittent positional vertigo. Position changes create some wooziness and dizziness (not true spinning but more of an off-balance sensation). This sensation would last several minutes and would come and go depending on activity. He would not fall and he had no nausea or vomiting. He might go weeks to months without this and then it would happen again. He noted that he would veer to the right at times with this and he did have an Trish maneuver which helped. He did not have tinnitus or hearing loss. This is intermittently persisted even into this year. In late August he noticed a very small Tick imbedded in his left proximal anterior forearm. He "pried" the tick off, with his fingernail, but this was difficult to do. He next says that starting within 2 weeks after of this he started getting multiple new symptoms. His vertigo returns some but he was really stroke with balance issues and weakness in general. It has been progressively worse over time. Currently he feels that his muscles are weak in general. His legs can buckle and he can fall. His legs feel "wobbly". His toes and hands have numbness and tingling. His right upper extremity is numb from the shoulder to the hand. The weakness seems symmetrical in the limbs however. He denies cognitive issues, speech or vision problems, but he has had some incontinence of urine / urgency over the last month which is new. He does have some mild low back pain but no cervical spine pain. He was admitted September 26 afebrile with a blood pressure of 179/82. Chest x-ray, CT scan of the head, and CT angiography of the head and neck were all unremarkable. CBC has shown very mild anemia and Chem profile has been unremarkable. TSH was 2.0, Lyme antibody titers were negative. Although Anaplasma and Babesia DNA tests are pending the smears were negative. ESR was 23, CK 219, total cholesterol 124 and triglycerides 110. B12 was low at 170. MRI of the brain showed no acute stroke with some mild to moderate old small vessel ischemic disease. Allergies Allergy/AdvReac Type Severity Reaction Status Date / Time Penicillins Allergy Unknown strong Unverified 06/16/21 16:34 family hx of allergy fluticasone AdvReac Intermediate Verified 11/28/21 05:04 [From Advair Diskus] salmeterol AdvReac Intermediate Verified 11/28/21 05:04 [From Advair Diskus] citalopram AdvReac Mild Tachycardia Unverified 06/16/21 16:35 Home Medications Medication Instructions Recorded Confirmed Type albuterol sulfate 90 mcg/actuation 2 puff inhalation QID PRN 06/13/21 11/26/22 History aerosol inhaler (Ventolin HFA) Shortness Of Breath Or Wheezing betamethasone dipropionate 0.05 % 1 applic topical BID 11/27/21 11/26/22 History topical ointment lisinopril 10 mg tablet 10 mg PO QAM 11/26/22 11/26/22 History nortriptyline 50 mg capsule 50 mg PO HS 11/26/22 11/26/22 History pravastatin 20 mg tablet 20 mg PO DAILY 11/26/22 11/26/22 History rosuvastatin 10 mg tablet 10 mg PO HS 11/26/22 11/26/22 History trazodone 50 mg tablet 50 mg PO HS 11/26/22 11/26/22 History aspirin 81 mg PO DAILY 11/27/22 11/27/22 History Patient History Medical History Alcohol use Asthma Dyslipidemia GERD (gastroesophageal reflux disease) HTN (hypertension) Pre-diabetes Surgical History History of tonsillectomy TONSILS REMOVED WHEN HE WAS 10 YRS OLD. Family History Father , age 74 of an [place] Myocardial infarction Other Cancer Heart disease Stroke Social History (Updated 11/28/22 @ 10:35 by Neo Gamboa MD) Smoking Status: Current some day smoker Tobacco Type: Cigars Cigarettes Per Day: 2 per month; Second Hand Exposure: Yes; Do You Dip or Chew Tobacco: No; Hx Alcohol Use: Yes Alcohol type: hard liquor Alcohol type Comment: 1.5 oz whisky every night Alcohol Intake Frequency Comment: stopped Alcohol earlier this year. 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 Feels Safe at Home: Yes Assistive Devices: Cane Review of Systems Constitutional: + fatigue and + weakness; no fever Eyes: no diplopia, no eye pain and no worsening vision Ear, Nose, Mouth, Throat: + dizziness; no ear pain, no tinnitus, no hearing loss, no snoring, no hoarseness and no dysphagia Respiratory: no cough and no dyspnea Cardiovascular: no chest pain, no palpitations and no lightheadedness Gastrointestinal: no abdominal pain, no nausea and no vomiting Musculoskeletal: + back pain; no neck pain, no radicular pain, no joint pain and no myalgia Integumentary: no rash and no lesions Neurologic: + gait abnormality, + generalized weakness, + tingling and + numbness; no localized weakness, no tremor(s), no abnormal movements, no headache(s), no abnormal speech, no confusion and no memory loss Psychiatric: no depression, no irritability, no anxiety, no difficulty concentrating, no confusion and no hallucinations Endocrine: no fatigue and no flushing Hematologic / Lymphatic: no easy bleeding and no easy bruising Allergy / Immunological: no urticaria and no problem reported Exam (Neuro) Physical Exam: The patient is right-handed. The patient is awake, alert, and attentive. Speech is normal without any aphasia or dysarthria. The patient can name objects, repeat phrases, and has normal spontaneous speech. Mentation and thought processes are intact, with orientati on to person, place and time, and normal fund of knowledge. Attention and concentration are normal. Mood and affect are normal and appropriate. General appearance and grooming are normal. Short and long-term memory are intact. Pupils are 4 mm bilaterally and reactive to light. Extraocular eye muscles are intact without nystagmus. Visual acuity and visual mabry seem normal grossly to confrontation. There are no deficits to sensation in the face in all 3 distributions of the fifth cranial nerve bilaterally. Corneal reflexes are positive bilaterally. Facial strength and symmetry was normal bilaterally. Hearing seems normal bilaterally. Palate moves well without asymmetry. There is normal sternocleidomastoid and trapezius (shoulder shrug) strength bilaterally. Tongue is midline with good strength bilaterally. Neck has a full range of motion without discomfort. There are no cervical bruits bilaterally. There are no cranial or ocular bruits. Heart is without murmur. There is a regular rhythm and rate. Cervical, thoracic, and lumbar spine are nontender to palpation. stance sitting up in bed with feet dangling is reasonable. Gait is narrow based , with some arm swing but very tentative and cautious. he seems wobbly but not frankly ataxic. He has considerable swaying with feet together and eyes open, deteriorating more with eyes closed With outstretched arms there is no drift. There are no resting, postural, or action tremors. There is no ataxia with finger to nose testing. there is no ataxia with [id number] test. There is good facility in the hands. No other abnormal involuntary movements are noted. Motor strength is 4+/5 diffusely in the arms bilaterally including deltoids, biceps, triceps, brachioradialis, wrist flexors and extensors, physician general internal medicine, and intrinsic hand muscles. Motor strength is 4+/5 diffusely in the legs bilaterally including hip flexors, quadriceps, hamstrings, gastrocnemius, tibialis anterior, tibialis posterior, and Peroneii muscles. Toe extensors are normal and there is good bulk in the extensor digitorum brevis muscles bilaterally. The limbs have good tone without rigidity or spasticity. There is no atrophy noted in the muscles. Muscle bulk is normal, there is no tenderness to palpation, no myotonia to percussion, and no fasciculations seen. He has decreased sensation to pin in his fingers diffusely bilaterally. Reflexes are 2/4 in the biceps, triceps, brachioradialis, and quadriceps tendons bilaterally. Achilles tendon reflexes are absent Bilaterally. There is no clonus bilaterally. Toes are downgoing with plantar stimulation bilaterally. Peripheral pulses are present and of normal quality distally in all 4 limbs. There is no peripheral edema noted in the limbs. Results & Data Vital Signs (Past 12 Hours) Vital Signs Temp Pulse Pulse Pulse Resp BP BP 11/28/22 07:59 36.8 C 60 14 149/75 H 11/28/22 07:36 53 L 11/28/22 03:00 36.5 C 54 L 18 156/72 H Pulse Ox O2 Del Method 11/28/22 07:59 95 Room Air 11/28/22 07:36 11/28/22 03:00 97 Room Air PG Care Time/CCT Total # of Minutes Spent Total Time Spent with Patient: Total time spent is greater than 50% in coordination of care (as documented) at patient's floor/unit and/or counseling patient: Coding Level of Care Code 54646 INT INP/OBS CARE 3/75MIN Diagnoses Weakness R53.1 Numbness and tingling R20.0; R20.2 Ataxia R27.0 B12 deficiency E53.8 Vertigo R42 Time Spent (min) 75
[2022-11-28] MEDS: ALBUT/IPRATROP 3MG/0.5MG NEB 3 ML VIAL NEB PRN (11:20)
--- NOTE | 2022-11-28 13:53 | Discharge Summary ---
Date of Service November 28, 2022 Admission HPI Per Admitting Provider History obtained from patient and records. Medical history significant for history of diastolic dysfunction (EF 60%, stress echo 2022), hypertension, hyperlipidemia, bronchial asthma, history of PE status post anticoagulation, pulmonary nodules, GERD, prediabetes, chronic anemia (baseline hemoglobin of 13), BPH, past tobacco abuse. Last confinement November 2021 pulmonary embolism attributed to COVID-19 illness. Patient discharged on Eliquis course. Patient has had intermittent vertigo symptoms since caren COVID-19 illness about 2 years ago. 2 months ago, patient noted worsening of vertigo symptoms described as room spinning, unsteadiness of the feet, tingling numbness on the upper extremities. Tick bites noted prior to worsening symptoms. Patient seen at PCP's office last month. CT head without acute abnormality. Outpatient Lyme screen negative. No antibiotic Rx given. Symptoms attributed to vertigo. Outpatient PT eval recommended. Worsening symptoms noted over the last week. Patient dropping objects. Both arms and legs weaker than usual. Transient headache symptoms. Right upper extremity may be numb. Admits to daily OTC aspirin intake. Funny chest sensation without unusual SOB symptoms. Patient directed to ER after being seen at PCPs office today. 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 Admission Exam Per Admitting Provider GENERAL: anxious, obese, pleasant, no respiratory distress SKIN: Pallor, warm HEENT: Bespectacled, pale palpebral conjunctivae, no ptosis, dry buccal mucosa NECK : Supple, short neck, no tenderness CHEST : Decreased breath sounds, no tenderness HEART : RRR, no obvious murmurs ABDOMEN: Some distention, nontender EXTREMITIES : Minimal LE swelling without tenderness, no other conspicuous deformities noted NEUROLOGIC : Coherent, no facial asymmetry, MMTS BUE 4/5, BLE 3/5, negative pronator drift; able to do alternating pronation supination hand motions, [id number] test, [id number] test without difficulty albeit slowly, gait and stance not assessed Principal Diagnosis Ataxia Vitamin B12 deficiency Discharge Exam Constitutional: WD/WN, vitals as above, NAD, sitting up in bed, pleasant, conversing easily Respiratory: normal respiratory effort, lungs clear to auscultation, no wheeze, rales, rhonchi. Normal insp/exp effort, no accessory muscle use Cardiovascular: RRR, no murmur, no edema Vessels: no JVD or carotid bruit Chest: normal inspection of chest Abdomen: normal bowel sounds, soft, nontender, no hepatosplenomegaly Musculoskeletal: no cyanosis or clubbing, extremities motor strength 5/5 Skin: no rashes, warm and dry normal turgor Neurologic: Patient awake alert oriented x3 PERRLA Gait narrow based with some arm swing but cautious. Motor strength 4+/5 bilaterally in upper and lower extremity Decreased sensation to pin in his finger diffusely bilaterally Psychiatric: A+Ox3, euthymic affect Discharge Data Allergies Allergy/AdvReac Type Severity Reaction Status Date / Time Penicillins Allergy Unknown strong Unverified 06/16/21 16:34 family hx of allergy fluticasone AdvReac Intermediate Verified 11/28/21 05:04 [From Advair Diskus] salmeterol AdvReac Intermediate Verified 11/28/21 05:04 [From Advair Diskus] citalopram AdvReac Mild Tachycardia Unverified 06/16/21 16:35 Consultations 11/26/22 19:50 ED Decision to Admit Stat 11/27/22 15:25 Consult Neurology Routine Ordered Studies 11/26/22 17:51 CT angio head w con Stat CT angio neck with con Stat CT head/brain wo con Stat 11/26/22 21:27 MR brain wo/w con Stat Hospital Course (1) Weakness: (2) B12 deficiency: Plan Patient is a 67-year-old male with past medical history of diastolic heart fa ilure, hypertension, hyperlipidemia who presented to the ED with vertigo s symptoms and bilateral finger numbness Patient underwent stroke work-up including CT head, CTA head and neck which did not show any acute abnormality. MRI brain showed mild to moderate nonspecific white matter changes. No acute stroke was seen. Echocardiogram showed normal EF of 60 to 65%. Neurology was consulted; recommended replacement for vitamin B12 as patient's vitamin vitamin B12 level was found to be 170 pg/ml Neurology to arrange for outpatient EMG/nerve conduction test. Patient to be started on 1000 mcg vitamin B12 IM weekly for 1 month; then once a month for 6 months. Patient was given oral vitamin B12 supplementation till he sees his PCP as outpatient. Patient was also given prescriptions for rolling walker and outpatient PT OT. Please note the above document was generated using voice recognition software. It may contain grammatical, syntax or spelling errors. Any formal questions or c oncerns about the content, text or information contained within the body of this dictation should be directly addressed to the provider for clarification Total Time Total Time Spent Total Time Spent (In Minutes): 35 Total Time Includes: Examination of the Patient, Discharge Planning, Medication Reconciliation, Communication With Other Providers and Other Discharge Plan Discharge Items Patient Disposition: Home - Self-Care Reason For Visit: RUE NUMBNESS Discharge Diagnosis: Vitamin B12 deficiency. Activity: Resume your previous activity Non-emergency contact: Primary Care Provider Call non-emergency contact if: you have any medication questions Follow-up/Referrals: Justin Connor MD [Primary Care Provider] - (Date & Time 12/05/2022 10:00 AM Provider Enoch Givens MD [facility] ) Diet: Regular Addtl Attending Provider Instructions: You were admitted to the hospital for generalized weakness, numbness and tingling sensation. You had extensive imaging and lab work done which were unremarkable except for low vitamin B12 level. You will have follow-up appointment with your primary care doctor on Saturday next week. You will be started on 1000 mg IM vitamin B12 twice a week for 4 weeks. After that is completed, you need it once a month for 6 months. You will get a call from neurology (Dr. Gamboa) for follow-up appointment for EMG nerve conduction test. You are prescribed oral vitamin B12 for the time being till you follow-up. Pending Studies at Discharge: No Stand-Alone Forms: [employer] Smoking Cessation Medications and DC Order Prescriptions: New cyanocobalamin (vitamin B-12) [Vitamin B-12] 1,000 mcg tablet 1,000 mcg PO DAILY Qty: 30 0RF Continued albuterol sulfate [Ventolin HFA] 90 mcg/actuation Hfa Aerosol Inhaler 2 puff INHALATION QID PRN (Reason: Shortness Of Breath Or Wheezing) betamethasone dipropionate 0.05 % ointment 1 applic TOPICAL BID Rx Instructions: START AFTER MUPIROCIN CREAM. trazodone 50 mg tablet 50 mg PO HS lisinopril 10 mg tablet 10 mg PO QAM nortriptyline 50 mg capsule 50 mg PO HS rosuvastatin 10 mg tablet 10 mg PO HS pravastatin 20 mg tablet 20 mg PO DAILY aspirin 81 mg PO DAILY Discharge Orders: Discharge Order (Routine); Ordered 11/28/22 Ordered By: Juventino Gant/Other Patient Handouts: Prediabetes, 5 Steps for Eating Healthier Admission Data Admit Date/Time: 11/26/22 21:23 Attending Provider: Juventino Parks Admit Provider: Garry Xavier Primary Care Provider: Justin Connor Other Providers: Garry Xavier ; Neo Gamboa ; Dustin Huggins Other Interventions: Discharge Summary Assessment (RN) Last Done: 11/28/22 13:43
[2022-11-29 16:47] LABS: Babesia microti DNA Not Detected (Not Detected)
[2022-12-03 01:06] LABS: Ehrlichia chaff DNA Bld Negative (Negative)
== END 2022-11-28 15:40 | disposition home or self-care (01) ==
LOC: ED 15:23 → 2W 15:23 → SUATTDRO 21:23 → 2W 11-27 00:46